=== PATIENT | female | born 1975 | race Caucasian/White ===

== ENCOUNTER 2017-09-27 22:02 | Emergency (ER) | payer OTHER ==
[~2017-09-27] VITALS: Ht 170.2 cm; Wt 99.8 kg
[2017-09-27] MEDS ORDERED: PHENERGAN IV STA (22:18)
[2017-09-27] MEDS ORDERED: NS 1000ML 1,000 ML IV STA (22:18)
--- NOTE | 2017-09-27 22:21 | PCM.EKG ---
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
[2017-09-27] MEDS ORDERED: NS 1000ML 1,000 ML ONE (22:22)
[2017-09-27] MEDS ORDERED: PHENERGAN ONE (22:23)
--- NOTE | 2017-09-27 22:24 | ER.PDOC ---
General Chief Complaint: Syncope Stated Complaint: NEAR SYNCOPE Time seen by MD: 22:23 Source: patient Exam Limitations: no limitations History of Present Illness Initial Comments Passed out after a bout of vomiting and diarrhea Timing/Prior Episodes: single episode today Symptoms Prior to Episode: none Precipitating Factors: standing Loss of Consciousness: Brief (Seconds) Location of Injury: None Current Symptoms: lightheadedness Allergies: Coded Allergies: Penicillins (Verified Allergy, Unknown, Hives, 05/05/17) acetaminophen (Verified Allergy, Unknown, 05/05/17) ketorolac (Verified Allergy, Unknown, Swelling, 05/05/17) naproxen (Verified Allergy, Unknown, 05/05/17) pamabrom (Verified Allergy, Unknown, 05/05/17) sulfamethoxazole (Verified Allergy, Unknown, Hives, 05/05/17) tramadol (Verified Allergy, Unknown, Hives, 05/05/17) trimethoprim (Verified Allergy, Unknown, Hives, 05/05/17) Past Medical History Surgical History: back, cholecystectomy, tubal LMP (females 10-50): tubal Social History Smoking: cigarettes, less than 1 pack/day Alcohol Use: none Drug Use: marijuana Review of Systems Constitutional: no symptoms reported Respiratory: no symptoms reported Cardiovascular: no symptoms reported Gastrointestinal: see HPI Psychiatric/Neurological: see HPI All Other Systems: Reviewed and Negative Physical Exam General Appearance: No Apparent Distress, WD/WN HEENT: PERRL/EOMI Neck: Non-Tender, Full Range of Motion, Supple, Normal Inspection Cardiovascular/Respiratory: Regular Rate, Rhythm, No M/R/G, Normal Peripheral Pulses, No JVD, Normal Breath Sounds, No Respiratory Distress Gastrointestinal: Normal Bowel Sounds, No Organomegaly, No Pulsatile Mass, Non Tender, Soft Extremities: Normal Range of Motion, Non-Tender, Normal Inspection, No Pedal Edema, No Calf Tenderness, Normal Capillary Refill Psychiatric: Alert, Oriented x 3 Cranial Nerves: Normal Hearing, Normal Speech, PERRL Motor/Sensory: No Motor Deficit, No Sensory Deficit Skin: Normal Color, Warm/Dry Lymphatic: No Adenopathy Results/Orders Results/Orders Laboratory Tests Test 09/27/17 22:26 White Blood Count 7.8 10^3/uL (4.5-11.0) Red Blood Count 4.70 10^6/uL (4.00-5.20) Hemoglobin 13.2 g/dL (12.0-15.0) Hematocrit 41.1 % (36.0-46.0) Mean Corpuscular Volume 87.4 fL (78-100) Mean Corpuscular Hemoglobin 28.1 pg (26-34) Mean Corpuscular Hemoglobin Concent 32.1 g/dL (33-37) Red Cell Distribution Width 14.6 % (11.5-14.5) Platelet Count 325 10^3/uL (150-400) Mean Platelet Volume 10.8 fL (7.8-11.0) Neutrophils (%) (Auto) 50.0 % (41.0-85.0) Lymphocytes (%) (Auto) 39.5 % (24.0-44.0) Monocytes (%) (Auto) 7.8 % (5.0-12.0) Neutrophils # (Auto) 3.9 10^3/uL (1.8-7.7) Lymphocytes # (Auto) 3.1 10^3/uL (1.0-4.8) Monocytes # (Auto) 0.6 10^3/uL (0.3-0.8) Absolute Immature Granulocyte (auto 0.02 10^3 u/L (0-2) Eosinophils % 1.8 % (0.0-5.0) Basophils % 0.6 % (0.0-0.2) Basophils # 0.1 10^3/uL (0.0-0.1) Eosinophil Count 0.1 10^3/uL (0.0-0.2) Sodium Level 142 mmol/L (132-145) Potassium Level 3.3 mmol/L (3.6-5.2) Chloride Level 107.0 mmol/L (96-109) Carbon Dioxide Level 21.9 mmol/L (20.0-32) Anion Gap 16.4 Blood Urea Nitrogen 16 mg/dL (7-18) Creatinine 0.86 mg/dL (0.59-1.40) Estimated GFR () 88.4 (>/=60) BUN/Creatinine Ratio 18.0 Glucose Level 92 mg/dL (70-110) Calcium Level 8.6 mg/dL (8.4-10.5) Total Bilirubin 0.4 mg/dL (0.2-1.0) Aspartate Amino Transf (AST/SGOT) 14 U/L (0-35) Alanine Aminotransferase (ALT/SGPT) 12 U/L (12-78) Alkaline Phosphatase 55 U/L (50-136) Troponin I < 0.02 ng/mL (0.00-0.05) Total Protein 7.4 g/dL (6.4-8.2) Albumin 3.6 g/dL (3.4-5.0) Globulin 3.8 Lipase 108 U/L (114-286) Serum HCG, Qualitative NEGATIVE (NEGATIVE) Percent Immature Gran (Cell Imm) 0.30 % (0.00-0.50) Administered Medications Medications (Trade) Dose Ordered Sig/Bo Route PRN Reason Start Time Stop Time Status Last Admin Dose Admin Sodium Chloride 1,000 ml @ 1,200 mls/hr Q50M STAT IV 09/27/17 22:18 09/27/17 23:07 DC 09/27/17 23:05 Promethazine HCl (Phenergan) 25 mg STAT STAT IV 09/27/17 22:18 09/27/17 22:20 DC 09/27/17 23:05 Progress Progress Patient feels fine to go home. EKG/XRAY/CT/US EKG: NSR CT Comments: Normal CT head Departure Time of Disposition: 23:48 Disposition: 01 HOME, SELF-CARE Impression: Primary Impression: Syncope and collapse Additional Impression: Gastroenteritis Condition: Improved Referrals: TERA BERGER MD (PCP) PRIMARY CARE PROVIDER Additional Instructions: Start feeding with clear liquids and advance diet as tolerated F/U with your PCP in 2-3 days Duration or Time Spent with Pa: 2 hours Problem Qualifiers TREVA BONILLA MD Sep 27, 2017 22:24
[2017-09-27 22:33] LABS: BASOPHIL # 0.1 10^3/uL (0.0-0.1); BASOPHIL % 0.6 % (0.0-0.2); EOSINOPHIL # 0.1 10^3/uL (0.0-0.2); EOSINOPHIL % 1.8 % (0.0-5.0); HEMOGLOBIN 13.2 g/dL (12.0-15.0); LYMPHOCYTES # 3.1 10^3/uL (1.0-4.8); LYMPHOCYTES % 39.5 % (24.0-44.0); MEAN CELL HGB 28.1 pg (26-34); MEAN CELL HGB CONCENTRATION 32.1 g/dL (33-37); MEAN CORP VOLUME 87.4 fL (78-100); MEAN PLATELET VOLUME 10.8 fL (7.8-11.0); MONOCYTES # 0.6 10^3/uL (0.3-0.8); MONOCYTES % 7.8 % (5.0-12.0); NEUTROPHIL # 3.9 10^3/uL (1.8-7.7); RED CELL DISTRIBUTION WIDTH 14.6 % (11.5-14.5); WHITE BLOOD CELL 7.8 10^3/uL (4.5-11.0)
[2017-09-27 22:51] LABS: ALANINE AMINOTRANSFERASE(ML) 12 U/L (12-78); ALKALINE PHOSPHATASE 55 U/L (50-136); ASPARTATE AMINO TRANSFERASE 14 U/L (0-35); CALCIUM 8.6 mg/dL (8.4-10.5); CARBON DIOXIDE 21.9 mmol/L (20.0-32); GLUCOSE 92 mg/dL (70-110)
[2017-09-27 23:10] VITALS: BP 136/86
--- NOTE | 2017-09-27 23:42 | DIREP ---
PROCEDURE:CT HEAD OR BRAIN W/O CONTRAST COMPARISON:None. INDICATIONS:Syncope TECHNIQUE:CT images were created without intravenous contrast. FINDINGS: VENTRICLES:The ventricles are normal in size and configuration. CEREBRUM:Normal cerebral morphology with appropriate dumont white matter differentiation. CEREBELLUM:Negative. BRAINSTEM:Negative. BASAL CISTERNS:Negative. HEMORRHAGE:No MASS LESION:No ACUTE INFARCT:No SKULL:Normal. SINUSES:Normal. OTHER:None CONCLUSION:Normal examination. Dictated by: Ayush Champagne M.D. on 09/27/2017 at 11:41 PM
--- NOTE | 2017-09-27 23:54 | NUR ---
IV IV Removed, No redness or swelling around IV Site
[2017-09-27 23:56] VITALS: BP 136/86
== END 2017-09-27 23:55 | disposition home or self-care (01) ==
LOC: EDBD 22:02 → ER 22:02
DX: K52.9 Noninfective gastroenteritis and colitis, unspecified (principal); R55 Syncope and collapse; Z88.0 Allergy status to penicillin; Z88.2 Allergy status to sulfonamides; Z90.49 Acquired absence of other specified parts of digestive tract
CPT/HCPCS: 36415; 70450; 80053; 83690; 84484; 84703; 85025; 93005; 96361; 96374; 99285; J2550; J7030

== ENCOUNTER 2018-02-18 13:06 | Emergency (ER) | payer OTHER ==
[~2018-02-18] VITALS: Ht 170.2 cm; Wt 96.6 kg
[2018-02-18 13:28] VITALS: BP 140/100
--- NOTE | 2018-02-18 13:29 | NUR ---
ARRIVAL PATIENT ARRIVED TO ED[facility] AMBULATORY, C/O OF BACK AND LEG PAIN FROM A FALL 3-4 DAYS AGO, PAIN INCREASED OVER THE LAST FEW DAYS, DOES HAVE A HISTORY OF CHRONIC BACK PAIN, HERE FOR FURTHER EVAL.
[2018-02-18] MEDS ORDERED: SUBLIMAZE IM STA (13:34)
[2018-02-18] MEDS ORDERED: ZOFRAN ODT SL STA (13:34)
--- NOTE | 2018-02-18 13:42 | ER.PDOC ---
General Chief Complaint: Lower Back Pain or Injury Stated Complaint: FALL,BACK/LEFT ANKLE INJURY,ASTHMATIC Time seen by MD: 13:45 Source: patient Exam Limitations: no limitations History of Present Illness Occurred: last week Where: home Severity: mild Injuries/Pain Location: back, lower extremity Context: Lost Balance Loss of Consciousness: No Loss of Consciousness Modifying Factors: improves with cold therapy, improves with immobilization, improves with pain medication Associated Symptoms: denies symptoms Allergies: Coded Allergies: Penicillins (Verified Allergy, Unknown, Hives, 05/05/17) acetaminophen (Verified Allergy, Unknown, 05/05/17) ketorolac (Verified Allergy, Unknown, Swelling, 05/05/17) naproxen (Verified Allergy, Unknown, 05/05/17) pamabrom (Verified Allergy, Unknown, 05/05/17) sulfamethoxazole (Verified Allergy, Unknown, Hives, 05/05/17) tramadol (Verified Allergy, Unknown, Hives, 05/05/17) trimethoprim (Verified Allergy, Unknown, Hives, 05/05/17) Past Medical History Medical History: no pertinent history, other Surgical History: other Family History Significant Family History: no pertinent family hx Social History Smoking: non-smoker, cigarettes Alcohol Use: none Drug Use: none, marijuana Reviewed Nursing Reviewed: Vital Signs, Abn. Noted Review of Systems All Other Systems: Reviewed and Negative Physical Exam General Appearance: No Apparent Distress, WD/WN Head: No Evidence of Injury Eyes: bilateral eye normal inspection Ears, Nose, Mouth, Throat: Hearing Grossly Normal, No Evidence of ENT Injury, No Dental Injury Neck: Non-Tender, Normal Alignment, Nexus criteria neg, Normal Inspection Cardiovascular/Respiratory: Regular Rate, Rhythm, No M/R/G, Normal Peripheral Pulses, No JVD, Normal Breath Sounds, No Respiratory Distress Gastrointestinal: Normal Bowel Sounds, No Organomegaly, No Pulsatile Mass, Non Tender, Soft Back: Vertebral Tenderness Extremities: Tenderness (L ANKLE) 1 - TENDER 1 - TENDER 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
--- NOTE | 2018-02-18 13:54 | NUR ---
XRAY PATIENT AMBULATORY TO XRAY WITH KAELA FROM RADIOLOGY.
--- NOTE | 2018-02-18 14:02 | NUR ---
XRAY PATIENT BACK FROM XRAY.
[2018-02-18 14:10] VITALS: BP 151/78
--- NOTE | 2018-02-18 14:10 | DIREP ---
PROCEDURE:XRAY ANKLE MIN 3VWS-LT COMPARISON:None. INDICATIONS:FALL FINDINGS: BONES:No acute fracture is seen. Internal fixation screws are noted within the calcaneus and lateral aspect of the talus. JOINTS:The ankle mortise is intact. Mild osteophyte formation is noted at the tip of the lateral malleolus. SOFT TISSUES:Normal. OTHER:No additional findings. CONCLUSION: 1. No acute fracture is demonstrated. The ankle mortise is intact. Dictated by: Paco Camacho M.D. on 02/18/2018 at 02:07 PM
--- NOTE | 2018-02-18 14:12 | DIREP ---
PROCEDURE:XRAY SPINE LUMBAR 2-3 VWS COMPARISON:[facility], , XRAY SPINE LUMBAR 2-3 VWS, 08/27/2017, 06:42 PM. INDICATIONS:FALL FINDINGS: ALIGNMENT:Normal. VERTEBRAE:Normal. DISK SPACES:Fairly severe degenerative disc disease is again noted at the L5/S1 level appears unchanged since 08/27/2017 characterized by narrowing of the disc space height and anterior osteophyte formation. SPONDYLOLISTHESIS:None. SACROILIAC JOINTS:Normal. OTHER:Normal. CONCLUSION: 1. No fracture or spondylolisthesis is seen. 2. Fairly severe degenerative disc disease at L5/S1 appears unchanged since 08/27/2017. Dictated by: Paco Camacho M.D. on 02/18/2018 at 02:09 PM
[2018-02-18 14:24] VITALS: BP 140/100
== END 2018-02-18 14:16 | disposition home or self-care (01) ==
LOC: ER 13:06
DX: M54.5 Low back pain (principal); M25.572 Pain in left ankle and joints of left foot; F12.10 Cannabis abuse, uncomplicated; F17.210 Nicotine dependence, cigarettes, uncomplicated; Z88.0 Allergy status to penicillin; Z88.6 Allergy status to analgesic agent; Z88.2 Allergy status to sulfonamides; Z88.1 Allergy status to other antibiotic agents
CPT/HCPCS: 72100; 99284; 73610-LT

== ENCOUNTER 2018-03-29 17:25 | Emergency (ER) | payer OTHER ==
[~2018-03-29] VITALS: Ht 172.7 cm; Wt 90.7 kg
[2018-03-29 18:05] VITALS: BP 132/85
[2018-03-29 18:51] LABS: BASOPHIL % 0.2 % (0.0-0.2); EOSINOPHIL # 0.1 10^3/uL (0.0-0.2); EOSINOPHIL % 1.1 % (0.0-5.0); LYMPHOCYTES # 3.2 10^3/uL (1.0-4.8); LYMPHOCYTES % 33.2 % (24.0-44.0); MEAN CELL HGB 29.3 pg (26-34); MEAN CELL HGB CONCENTRATION 33.3 g/dL (33-37); MEAN CORP VOLUME 88.1 fL (78-100); MEAN PLATELET VOLUME 10.4 fL (7.8-11.0); MONOCYTES # 0.8 10^3/uL (0.3-0.8); MONOCYTES % 7.9 % (5.0-12.0); NEUTROPHIL # 5.5 10^3/uL (1.8-7.7); NEUTROPHILS % 57.4 % (41.0-85.0); RED CELL DISTRIBUTION WIDTH 14.3 % (11.5-14.5); WHITE BLOOD CELL 9.6 10^3/uL (4.5-11.0)
--- NOTE | 2018-03-29 18:57 | ER.PDOC ---
General Chief Complaint: Abdomen Pain Stated Complaint: ABD PAIN Time seen by MD: 18:20 Source: patient Exam Limitations: no limitations History of Present Illness Initial Comments Pt with h/o dysmenorrhea, started today with abdominal pain on lower abdomen, yesterday with her period. Feels frequency, no dysuria and suprapubic abdominal pain Timing/Duration: 24 hours Severity/Quality: severe, cramping Radiation: LLQ, periumbilical, flank (left) Exacerbated by: movements Relieved By: supine Allergies: Coded Allergies: Penicillins (Verified Allergy, Unknown, Hives, 05/05/17) amoxicillin (Verified Allergy, Unknown, Anaphylaxis Shock, 03/17/18) ketorolac (Verified Allergy, Unknown, Swelling, 05/05/17) naproxen (Verified Allergy, Unknown, 05/05/17) pamabrom (Verified Allergy, Unknown, 05/05/17) sulfamethoxazole (Verified Allergy, Unknown, Hives, 05/05/17) tramadol (Verified Allergy, Unknown, Hives, 05/05/17) trimethoprim (Verified Allergy, Unknown, Hives, 05/05/17) Vital Signs First Vital Signs Date Time Temp Pulse Resp B/P (MAP) Pulse Ox O2 Delivery O2 Flow Rate FiO2 03/18/18 20:42 87 03/29/18 17:57 97.8 16 98 97.8 03/29/18 18:05 132/85 (101) Last Vital Signs Date Time Temp Pulse Resp B/P (MAP) Pulse Ox O2 Delivery O2 Flow Rate FiO2 03/29/18 18:05 98.1 59 18 132/85 (101) 98 98.1 Past Medical History Medical History: asthma Surgical History: back Social History Smoking: greater than 1 pack/day Alcohol Use: occassionally Drug Use: marijuana Constitutional: no symptoms reported EENTM: no symptoms reported Respiratory: no symptoms reported Cardiovascular: no symptoms reported Gastrointestinal: see HPI Genitourinary: see HPI Musculoskeletal: no symptoms reported Skin: no symptoms reported Psychiatric/Neurological: no symptoms reported Endocrine: no symptoms reported Hematologic/Lymphatic: no symptoms reported Physical Exam General Appearance: No Apparent Distress, WD/WN HEENT: PERRL/EOMI, Normal ENT Inspection, TMs Normal, Pharynx Normal Neck: Non-Tender, Full Range of Motion, Supple, Normal Inspection Respiratory: chest non-tender, lungs clear, normal breath sounds, no respiratory distress, no accessory muscle use Cardiovascular: Normal Peripheral Pulses, Regular Rate, Rhythm, No Edema, No Gallop, No JVD, No Murmur Gastrointestinal: Normal Bowel Sounds, No Organomegaly, No Pulsatile Mass, Tenderness (LLQ, RLQ, suprapubic area) Back: Normal Inspection, CVA Tenderness (R), CVA Tenderness (L) Extremities: Normal Range of Motion, Non-Tender, Normal Inspection, No Pedal Edema, No Calf Tenderness, Normal Capillary Refill, Pelvis Stable Neurologic/Psychiatric: 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 Tested, No Motor/Sensory Deficits, Alert, Normal Mood/Affect, Oriented x 3 Skin: Normal Color, Warm/Dry Lymphatic: No Adenopathy Results/Orders Results/Orders Laboratory Tests Test 03/29/18 18:47 White Blood Count 9.6 10^3/uL (4.5-11.0) Red Blood Count 4.78 10^6/uL (4.00-5.20) Hemoglobin 14.0 g/dL (12.0-15.0) Hematocrit 42.1 % (36.0-46.0) Mean Corpuscular Volume 88.1 fL (78-100) Mean Corpuscular Hemoglobin 29.3 pg (26-34) Mean Corpuscular Hemoglobin Concent 33.3 g/dL (33-37) Red Cell Distribution Width 14.3 % (11.5-14.5) Platelet Count 372 10^3/uL (150-400) Mean Platelet Volume 10.4 fL (7.8-11.0) Neutrophils (%) (Auto) 57.4 % (41.0-85.0) Lymphocytes (%) (Auto) 33.2 % (24.0-44.0) Monocytes (%) (Auto) 7.9 % (5.0-12.0) Neutrophils # (Auto) 5.5 10^3/uL (1.8-7.7) Lymphocytes # (Auto) 3.2 10^3/uL (1.0-4.8) Monocytes # (Auto) 0.8 10^3/uL (0.3-0.8) Absolute Immature Granulocyte (auto 0.02 10^3 u/L (0-2) Eosinophils % 1.1 % (0.0-5.0) Basophils % 0.2 % (0.0-0.2) Basophils # 0.0 10^3/uL (0.0-0.1) Eosinophil Count 0.1 10^3/uL (0.0-0.2) Percent Immature Gran (Cell Imm) 0.20 % (0.00-0.50) Progress Progress Care of patient taken over from Dr. Cruz. CT abdomen/pelvis: Cholecystectomy. Broad-based disc herniation at L5-S1 with moderate deformity of the thecal sac and moderate bilateral foraminal stenosis. CT scan of the abdomen and pelvis is otherwise normal. The appendix is not visualized. Course Sepsis Screening Results: Posi: POSITIVE SEPSIS RISK Vitals & review Data Vital Sign - Last 24 Hours 03/29/18 03/29/18 03/29/18 17:57 17:57 18:05 Temp 97.8 98.1 98.1 97.8 98.1 98.1 Pulse 82 59 59 Resp 16 18 18 B/P (MAP) 132/85 (101) Pulse Ox 98 98 Laboratory Tests Test 03/29/18 18:47 White Blood Count 9.6 10^3/uL Red Blood Count 4.78 10^6/uL Hemoglobin 14.0 g/dL Hematocrit 42.1 % Mean Corpuscular Volume 88.1 fL Mean Corpuscular Hemoglobin 29.3 pg Mean Corpuscular Hemoglobin Concent 33.3 g/dL Red Cell Distribution Width 14.3 % Platelet Count 372 10^3/uL Mean Platelet Volume 10.4 fL Neutrophils (%) (Auto) 57.4 % Lymphocytes (%) (Auto) 33.2 % Monocytes (%) (Auto) 7.9 % Neutrophils # (Auto) 5.5 10^3/uL Lymphocytes # (Auto) 3.2 10^3/uL Monocytes # (Auto) 0.8 10^3/uL Absolute Immature Granulocyte (auto 0.02 10^3 u/L Eosinophils % 1.1 % Basophils % 0.2 % Basophils # 0.0 10^3/uL Eosinophil Count 0.1 10^3/uL Percent Immature Gran (Cell Imm) 0.20 % Departure Time of Disposition: 22:13 Disposition: 01 HOME, SELF-CARE Impression: Primary Impression: Nonspecific abdominal pain Condition: Stable Referrals: PCP,UNKNOWN (PCP) PRIMARY CARE PROVIDER Additional Instructions: Tylenol #3 Phenergan F/U with your PCP next week Duration or Time Spent with Pa: 2 hours MONA CRUZ MD Mar 29, 2018 18:56 TREVA BONILLA MD Mar 29, 2018 22:14
[2018-03-29 19:00] VITALS: BP 127/79
[2018-03-29 19:14] LABS: BILIRUBIN,URINE NEGATIVE (NEGATIVE); CARBON DIOXIDE 25.3 mmol/L (20.0-32); UA COLOR YELLOW (YELLOW); UROBILINOGEN,URINE NORMAL (NEGATIVE)
[2018-03-29 19:15] LABS: APPEARANCE,URINE SLIGHTLY CLOUDY (CLEAR)
[2018-03-29 20:00] VITALS: BP 120/83
--- NOTE | 2018-03-29 20:40 | NUR ---
DR BONILLA IN PATIENT ROOM TO DISCUSS POSSIBLE KIDNEY STONE AND CT SCAN
[2018-03-29] MEDS ORDERED: NS 1000ML 1,000 ML ONE (20:45)
[2018-03-29] MEDS ORDERED: ZOFRAN ONE (20:46)
[2018-03-29] MEDS ORDERED: STADOL ONE (20:46)
[2018-03-29] MEDS ORDERED: STADOL IV STA (20:47)
[2018-03-29] MEDS ORDERED: NS 1000ML 1,000 ML IV STA (20:47)
[2018-03-29] MEDS ORDERED: ZOFRAN IV STA (20:47)
[2018-03-29 21:00] VITALS: BP 118/76
--- NOTE | 2018-03-29 21:56 | DIREP ---
PROCEDURE:CT ABDOMEN/PELVIS W/ CONTRAST COMPARISON:None. INDICATIONS:Lower abdominal pain TECHNIQUE:Axial images were created through the abdomen and pelvis with non-ionic intravenous contrast material. No oral contrast was administered. Sagittal and coronal reconstructions were performed from source images. FINDINGS: LUNG BASES:Normal. No visible pulmonary or pleural disease. LIVER:Normal. No significant liver lesions are identified. BILIARY:Cholecystectomy. PANCREAS:Normal. No lesion, fluid collection, ductal dilatation, or atrophy. SPLEEN:Normal. No enlargement or focal lesion. ADRENALS:Normal. No mass or enlargement. URINARY TRACT:Normal. No focal lesions or hydronephrosis. AORTA/VASCULAR:Normal. No aneurysm. RETROPERITONEUM:Normal. No mass or adenopathy. BOWEL/MESENTERY:Normal. There is no intestinal obstruction, free fluid, free air or mesenteric inflammatory changes. The appendix is not visualized. ABDOMINAL WALL:Normal. No mass or hernia. PELVIC ORGANS:Normal. No visible mass. Pelvic organs appropriate for patient age. BONES:Broad-based disc herniation at L5-S1. Mild degenerative changes in the thoracolumbar spine. OTHER:Negative. CONCLUSION: 1. Cholecystectomy. Broad-based disc herniation at L5-S1 with moderate deformity of the thecal sac and moderate bilateral foraminal stenosis. CT scan of the abdomen and pelvis is otherwise normal. The appendix is not visualized. Dictated by: Donte Dunaway M.D. on 03/29/2018 at 09:49 PM
[2018-03-29 22:20] VITALS: BP 114/62
[2018-03-29 23:13] VITALS: BP 127/79
== END 2018-03-29 22:25 | disposition home or self-care (01) ==
LOC: ER 17:25
DX: R10.30 Lower abdominal pain, unspecified (principal); J45.909 Unspecified asthma, uncomplicated; F17.210 Nicotine dependence, cigarettes, uncomplicated; F12.10 Cannabis abuse, uncomplicated; R79.1 Abnormal coagulation profile; Z88.0 Allergy status to penicillin; Z88.2 Allergy status to sulfonamides; Z88.6 Allergy status to analgesic agent
CPT/HCPCS: 36415; 74177; 80053; 81000; 81025; 82150; 83690; 85025; 85610; 85730; 87086; 96374; 96375; 99285; J2405; J7030; Q9965; J0585

== ENCOUNTER → 2018-04-08 | Outpatient (CLI) | payer OTHER ==
[2018-04-08 16:39] LABS: HEMOGLOBIN 12.9 g/dL (12.0-15.0); MEAN CELL HGB 29.7 pg (26-34); MEAN CELL HGB CONCENTRATION 32.7 g/dL (33-37); MEAN CORP VOLUME 90.8 fL (78-100); MEAN PLATELET VOLUME 10.1 fL (7.8-11.0); RED CELL DISTRIBUTION WIDTH 15.1 % (11.5-14.5); WHITE BLOOD CELL 11.8 10^3/uL (4.5-11.0)
== END | disposition home or self-care (01) ==
LOC: LAB 16:20
PROVIDERS: ATTEND Obstetrics & Gynecology
DX: N94.6 Dysmenorrhea, unspecified (principal); N95.9 Unspecified menopausal and perimenopausal disorder; J45.909 Unspecified asthma, uncomplicated; Z90.49 Acquired absence of other specified parts of digestive tract; Z87.891 Personal history of nicotine dependence
CPT/HCPCS: 36415; 83001; 84439; 84443; 85027

== ENCOUNTER 2018-05-27 09:45 | Emergency (ER) | payer MEDICAID, OTHER ==
[~2018-05-27] VITALS: Ht 170.2 cm; Wt 93.4 kg
[2018-05-27 10:02] VITALS: BP 141/87
--- NOTE | 2018-05-27 10:02 | NUR ---
ARRIVAL PATIENT ARRIVED TO ED[facility] AMBULATORY WITH FAMILY, C/O OF VOMITING FOR THE PAST SEVERAL DAYS, DOES HAVE A HISTORY OF GASTROPERESIS, CAME TO THE ED FOR FURTHER EVAL.
[2018-05-27] MEDS ORDERED: PHENERGAN IM STA (10:12)
[2018-05-27] MEDS ORDERED: MORPHINE SULFATE IV STA (10:12)
[2018-05-27] MEDS ORDERED: PHENERGAN ONE (10:14)
[2018-05-27] MEDS ORDERED: MORPHINE SULFATE ONE (10:14)
--- NOTE | 2018-05-27 10:19 | ER.PDOC ---
General Chief Complaint: Nausea,Vomiting,Diarrhea Stated Complaint: VOMITING, GASTRO PRE Time seen by MD: 10:17 Source: patient Exam Limitations: no limitations History of Present Illness Initial Comments Nausea/vomiting for 2 days, her gastroparesis is acting up. Severity/Quality: moderate Abdominal Pain Onset Location: Generalized Abdomen Associated Symptoms (vomiting): mild vomiting Prior symptoms/Treatment: Similar symptoms previous Allergies: Coded Allergies: Penicillins (Verified Allergy, Unknown, Hives, 05/05/17) amoxicillin (Verified Allergy, Unknown, Anaphylaxis Shock, 03/17/18) ketorolac (Verified Allergy, Unknown, Swelling, 05/05/17) naproxen (Verified Allergy, Unknown, 05/05/17) pamabrom (Verified Allergy, Unknown, 05/05/17) sulfamethoxazole (Verified Allergy, Unknown, Hives, 05/05/17) tramadol (Verified Allergy, Unknown, Hives, 05/05/17) trimethoprim (Verified Allergy, Unknown, Hives, 05/05/17) Vital Signs First Vital Signs Date Time Temp Pulse Resp B/P (MAP) Pulse Ox O2 Delivery O2 Flow Rate FiO2 05/27/18 09:59 97.7 76 18 97.7 05/27/18 10:00 97 Room Air 05/27/18 10:02 141/87 (105) Last Vital Signs Date Time Temp Pulse Resp B/P (MAP) Pulse Ox O2 Delivery O2 Flow Rate FiO2 05/27/18 10:02 97.7 76 18 141/87 (105) 97 Room Air 97.7 Past Medical History Medical History: other (Gastroparesis) Surgical History: back, other Social History Smoking: cigarettes Alcohol Use: none Drug Use: none Constitutional: no symptoms reported EENTM: no symptoms reported Respiratory: no symptoms reported Cardiovascular: no symptoms reported Gastrointestinal: see HPI Genitourinary: no symptoms reported All Other Systems: Reviewed and Negative Physical Exam General Appearance: No Apparent Distress, WD/WN HEENT: PERRL/EOMI, Normal ENT Inspection, TMs Normal, Pharynx Normal Neck: Non-Tender, Full Range of Motion, Supple, Normal Inspection Respiratory: chest non-tender, lungs clear, normal breath sounds, no respiratory distress, no accessory muscle use Cardiovascular: Normal Peripheral Pulses, Regular Rate, Rhythm, No Edema, No Gallop, No JVD, No Murmur Gastrointestinal: Normal Bowel Sounds, Non Tender, Soft Back: Normal Inspection, No CVA Tenderness, No Vertebral Tenderness Extremities: Normal Range of Motion, Non-Tender, Normal Inspection, No Pedal Edema, No Calf Tenderness, Normal Capillary Refill, Pelvis Stable 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 Tested, No Motor/Sensory Deficits, Alert, Normal Mood/Affect, Oriented x 3 Skin: Normal Color, Warm/Dry Lymphatic: No Adenopathy Results/Orders Results/Orders Laboratory Tests Test 05/27/18 10:12 05/27/18 10:22 Urine Collection Type UNKNOWN Urine Color ADIS (YELLOW) Urine Appearance SLIGHTLY HAZY (CLEAR) Urine Bilirubin NEGATIVE MG/DL (NEGATIVE) Urine Ketones NEGATIVE (NEGATIVE) Urine Specific [place] 1.030 (1.005-1.035) Urine pH 5 (5.0-6.0) Urine Protein NEGATIVE (NEGATIVE) Urine Urobilinogen NORMAL (NEGATIVE) Urine Nitrate NEGATIVE (NEGATIVE) Urine Leukocyte Esterase NEGATIVE (NEGATIVE) Urine Blood 250 4+ (NEGATIVE) Urine RBC 10-25 RBC/HPF (NONE SEEN) Urine WBC 0-2 WBC/HPF (0-2) Urine Squamous Epithelial Cells FEW #/HPF (FEW) Urine Bacteria NONE SEEN (NONE SEEN) Urine Glucose NORMAL (NEGATIVE) Urine HCG, Qualitative NEGATIVE (NEGATIVE) White Blood Count 8.5 10^3/uL (4.5-11.0) Red Blood Count 4.79 10^6/uL (4.00-5.20) Hemoglobin 13.9 g/dL (12.0-15.0) Hematocrit 42.7 % (36.0-46.0) Mean Corpuscular Volume 89.1 fL (78-100) Mean Corpuscular Hemoglobin 29.0 pg (26-34) Mean Corpuscular Hemoglobin Concent 32.6 g/dL (33-37) Red Cell Distribution Width 15.0 % (11.5-14.5) Platelet Count 335 10^3/uL (150-400) Mean Platelet Volume 10.3 fL (7.8-11.0) Neutrophils (%) (Auto) 57.6 % (41.0-85.0) Lymphocytes (%) (Auto) 31.9 % (24.0-44.0) Monocytes (%) (Auto) 7.5 % (5.0-12.0) Neutrophils # (Auto) 4.9 10^3/uL (1.8-7.7) Lymphocytes # (Auto) 2.7 10^3/uL (1.0-4.8) Monocytes # (Auto) 0.6 10^3/uL (0.3-0.8) Absolute Immature Granulocyte (auto 0.02 10^3 u/L (0-2) Eosinophils % 2.3 % (0.0-5.0) Basophils % 0.5 % (0.0-0.2) Basophils # 0.0 10^3/uL (0.0-0.1) Eosinophil Count 0.2 10^3/uL (0.0-0.2) Sodium Level 142 mmol/L (132-145) Potassium Level 3.5 mmol/L (3.6-5.2) Chloride Level 106.0 mmol/L (96-109) Carbon Dioxide Level 26.2 mmol/L (20.0-32) Anion Gap 13.3 Blood Urea Nitrogen 18 mg/dL (7-18) Creatinine 0.77 mg/dL (0.59-1.40) Estimated GFR () 100.0 (>/=60) BUN/Creatinine Ratio 23.0 Glucose Level 97 mg/dL (70-110) Calcium Level 9.3 mg/dL (8.4-10.5) Total Bilirubin 0.3 mg/dL (0.2-1.0) Aspartate Amino Transf (AST/SGOT) 13 U/L (0-35) Alanine Aminotransferase (ALT/SGPT) 12 U/L (12-78) Alkaline Phosphatase 55 U/L (50-136) Total Protein 7.1 g/dL (6.4-8.2) Albumin 3.5 g/dL (3.4-5.0) Globulin 3.6 Lipase 105 U/L (114-286) Percent Immature Gran (Cell Imm) 0.20 % (0.00-0.50) Administered Medications Medications (Trade) Dose Ordered Sig/Bo Route PRN Reason Start Time Stop Time Status Last Admin Dose Admin Promethazine HCl (Phenergan) 25 mg STAT STAT IM 05/27/18 10:12 05/27/18 10:16 DC 05/27/18 10:21 Morphine Sulfate (Morphine Sulfate) 4 mg STAT STAT IM 05/27/18 10:22 05/27/18 10:23 DC 05/27/18 10:23 EKG/XRAY/CT/US XRAY: abdomen (No acute intra-abdominal process) Departure Time of Disposition: 11:38 Disposition: 01 HOME, SELF-CARE Impression: Primary Impression: Gastroparesis Additional Impression: Nausea & vomiting Qualified Codes: R11.2 - Nausea with vomiting, unspecified Condition: Improved Referrals: PCP,UNKNOWN (PCP) PRIMARY CARE PROVIDER Additional Instructions: Phenergan Tylenol #3 Start feeding with clear liquids and advance diet as tolerated F/U with your PCP in 2-3 days Duration or Time Spent with Pa: 60 mins TREVA BONILLA MD May 27, 2018 10:19
[2018-05-27] MEDS ORDERED: MORPHINE SULFATE IM STA (10:22)
[2018-05-27 10:28] LABS: BASOPHIL % 0.5 % (0.0-0.2); EOSINOPHIL # 0.2 10^3/uL (0.0-0.2); EOSINOPHIL % 2.3 % (0.0-5.0); HEMOGLOBIN 13.9 g/dL (12.0-15.0); LYMPHOCYTES # 2.7 10^3/uL (1.0-4.8); LYMPHOCYTES % 31.9 % (24.0-44.0); MEAN CELL HGB CONCENTRATION 32.6 g/dL (33-37); MEAN CORP VOLUME 89.1 fL (78-100); MEAN PLATELET VOLUME 10.3 fL (7.8-11.0); MONOCYTES # 0.6 10^3/uL (0.3-0.8); MONOCYTES % 7.5 % (5.0-12.0); NEUTROPHIL # 4.9 10^3/uL (1.8-7.7); NEUTROPHILS % 57.6 % (41.0-85.0); WHITE BLOOD CELL 8.5 10^3/uL (4.5-11.0)
[2018-05-27 10:34] LABS: BILIRUBIN,URINE NEGATIVE (NEGATIVE); UROBILINOGEN,URINE NORMAL (NEGATIVE)
[2018-05-27 10:42] LABS: APPEARANCE,URINE SLIGHTLY HAZY (CLEAR); UA COLOR AMBER (YELLOW)
[2018-05-27 10:47] LABS: CALCIUM 9.3 mg/dL (8.4-10.5); CARBON DIOXIDE 26.2 mmol/L (20.0-32)
--- NOTE | 2018-05-27 11:03 | DIREP ---
PROCEDURE:XR ABDOMEN 2 VIEWS COMPARISON:None. INDICATIONS:Pain and vomiting TECHNIQUE:Flat and upright views of the abdomen are provided. FINDINGS: BOWEL GAS PATTERN:Normal. CALCIFICATIONS:None significant. LUNG BASES:Clear. BONES:Normal. OTHER:Cholecystectomy CONCLUSION:Nonobstructive, nonspecific bowel gas pattern. No acute intra-abdominal process Dictated by: Maged Palomo M.D. on 05/27/2018 at 09:58 AM Read in [place]
[2018-05-27 12:07] VITALS: BP 145/81
[2018-05-27 12:08] VITALS: BP 145/81
== END 2018-05-27 12:10 | disposition home or self-care (01) ==
LOC: ER 09:45
DX: K31.84 Gastroparesis (principal); F17.210 Nicotine dependence, cigarettes, uncomplicated; Z98.890 Other specified postprocedural states; Z88.0 Allergy status to penicillin; Z88.6 Allergy status to analgesic agent; Z88.2 Allergy status to sulfonamides; Z88.1 Allergy status to other antibiotic agents; Z88.8 Allergy status to other drugs, medicaments and biological substances
CPT/HCPCS: 36415; 74019; 80053; 81000; 81025; 83690; 85025; 96372 ×2; 99285; J2270; J2550

== ENCOUNTER 2018-10-30 16:53 | Emergency (ER) | payer OTHER ==
[~2018-10-30] VITALS: Ht 170.2 cm; Wt 95.7 kg
[2018-10-30 17:17] VITALS: BP 156/80
[2018-10-30] MEDS ORDERED: KLONOPIN PO STA (17:22)
[2018-10-30] MEDS ORDERED: ASPIRIN PO STA (17:22)
--- NOTE | 2018-10-30 17:24 | PCM.EKG ---
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
[2018-10-30] MEDS ORDERED: ZOFRAN ODT SL STA (17:26)
[2018-10-30] MEDS ORDERED: ZOFRAN ODT ONE (17:28)
--- NOTE | 2018-10-30 17:29 | ER.PDOC ---
General Chief Complaint: Chest Pain-Cardiac Nature Stated Complaint: N/V,CHEST PAIN Time seen by MD: 17:26 Source: patient Exam Limitations: no limitations History of Present Illness Initial Comments Chest pain, anxious, dizzy, nausea, vomiting. Takes Klonopin 3mg each day. Took the morning dose. Severity/Quality: moderate, tightness Radiation: no radiation Activities at Onset: none Nitro Today/Relief: No Nitro Taken Today Aspirin Today: 325 mg x 1, Provided By ED Associated Symptoms: dizziness, shortness of breath Allergies: Coded Allergies: Penicillins (Verified Allergy, Unknown, Hives, 05/05/17) amoxicillin (Verified Allergy, Unknown, Anaphylaxis Shock, 03/17/18) ketorolac (Verified Allergy, Unknown, Swelling, 05/05/17) naproxen (Verified Allergy, Unknown, 05/05/17) pamabrom (Verified Allergy, Unknown, 05/05/17) sulfamethoxazole (Verified Allergy, Unknown, Hives, 05/05/17) tramadol (Verified Allergy, Unknown, Hives, 05/05/17) trimethoprim (Verified Allergy, Unknown, Hives, 05/05/17) Past Medical History Medical History: other (Anxiety) Surgical History: back, tubal, other LMP (females 10-50): last week Social History Smoking: greater than 1 pack/day Alcohol Use: occassionally Drug Use: marijuana Constitutional: no symptoms reported EENTM: no symptoms reported Respiratory: see HPI Cardiovascular: see HPI Gastrointestinal: see HPI All Other Systems: Reviewed and Negative Physical Exam General Appearance: No Apparent Distress, Anxious HEENT: PERRL/EOMI, Normal ENT Inspection, TMs Normal, Pharynx Normal Neck: Non-Tender, Full Range of Motion, Supple, Normal Inspection Respiratory: chest non-tender, lungs clear, normal breath sounds, no respiratory distress, no accessory muscle use Cardiovascular: Normal Peripheral Pulses, Regular Rate, Rhythm, No Edema, No Gallop, No JVD, No Murmur Gastrointestinal: Normal Bowel Sounds, No Organomegaly, No Pulsatile Mass, Non Tender, Soft Extremities: Normal Range of Motion, Non-Tender, Normal Inspection, No Pedal Edema, No Calf Tenderness, Normal Capillary Refill Neurologic/Psychiatric: 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-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 NML as Tested, No Motor/Sensory Deficits, Alert, Normal Mood/Affect, Oriented x 3 Skin: Normal Color, Warm/Dry Results/Orders Results/Orders Orders - TREVA BONILLA MD Cbc With Auto Diff (10/30/18 17:22) Comprehensive Metabolic Panel (10/30/18 17:22) Creatine Kinase (10/30/18 17:22) Troponin I (10/30/18 17:22) Probnp B-Type Right Of Way Appraiser (10/30/18 17:22) D-Dimer (10/30/18:22) Xr Chest 1v (10/30/18 17:22) Ekg-Routine (10/30/18 17:22) Aspirin (Aspirin) (10/30/18:22) Clonazepam (Klonopin) (10/30/18:22) Drug Screen Medical(Ml) (10/30/18:) Vital Signs Date Time Temp Pulse Resp B/P (MAP) Pulse Ox O2 Delivery O2 Flow Rate FiO2 10/30/18 17:17 98.6 104 19 156/80 (105) 97 Room Air 98.6 10/30/18 17:10 98.6 104 19 97 Room Air 98.6 10/30/18 17:10 98.6 104 19 98.6 Progress Progress Patient feels better with Klonopin. Heart rate dropped in the 70s. EKG/XRAY/CT/US EKG Comments: Sinus tachycardia XRAY: chest (No active disease) Course Sepsis Screening Results: Posi: POSITIVE SEPSIS RISK Duration or Total Time Spent w: 60 mins Vitals & review Data Vital Sign - Last 24 Hours 10/30/18 10/30/18 10/30/18 17:10 17:10 17:17 Temp 98.6 98.6 98.6 98.6 98.6 98.6 Pulse 104 104 104 Resp 19 19 19 B/P (MAP) 156/80 (105) Pulse Ox 97 97 O2 Delivery Room Air Room Air Sepsis Infection Criteria Pres: None O2 Sat by Pulse Oximetry: 97 Departure Time of Disposition: 18:38 Disposition: 01 HOME, SELF-CARE Impression: Primary Impression: Anxiety Additional Impression: Mild tetrahydrocannabinol (THC) abuse Condition: Improved Referrals: KEE FERNÁNDEZ MD (PCP) PRIMARY CARE PROVIDER Additional Instructions: Continue Klonopin at home F/U with PCP in 1-2 days Duration or Time Spent with Pa: 60 mins Problem Qualifiers IRENE,TREVA Dyer MD Oct 30, 2018 17:29
[2018-10-30 17:38] LABS: BASOPHIL % 0.3 % (0.0-0.2); EOSINOPHIL # 0.2 10^3/uL (0.0-0.2); EOSINOPHIL % 2.5 % (0.0-5.0); LYMPHOCYTES # 3.3 10^3/uL (1.0-4.8); LYMPHOCYTES % 35.4 % (24.0-44.0); MEAN CELL HGB 29.2 pg (26-34); MEAN CELL HGB CONCENTRATION 34.1 g/dL (33-37); MEAN CORP VOLUME 85.6 fL (78-100); MEAN PLATELET VOLUME 10.3 fL (7.8-11.0); MONOCYTES # 0.6 10^3/uL (0.3-0.8); MONOCYTES % 6.8 % (5.0-12.0); NEUTROPHIL # 5.1 10^3/uL (1.8-7.7); NEUTROPHILS % 54.9 % (41.0-85.0); RED CELL DISTRIBUTION WIDTH 15.1 % (11.5-14.5); WHITE BLOOD CELL 9.2 10^3/uL (4.5-11.0)
--- NOTE | 2018-10-30 17:54 | DIREP ---
PROCEDURE:CHEST 1 VIEW COMPARISON:None. INDICATIONS:Chest pain FINDINGS: LUNGS/PLEURA:No significant pulmonary parenchymal abnormalities. No effusions. The lungs are well-expanded and clear. No pneumonia, heart failure or effusions are seen. No pneumothorax, pneumomediastinum, aortic aneurysm or mediastinal widening is seen. VASCULATURE:Normal. Unremarkable pulmonary vasculature. CARDIAC:Normal. No cardiac silhouette abnormality or cardiomegaly. MEDIASTINUM:Normal. No visible mass or adenopathy. BONES:Normal. No fracture or visible bony lesion. OTHER:Negative. CONCLUSION:No active disease. Dictated by: Shivam Cedillo MD on 10/30/2018 at 05:52 PM
[2018-10-30] MEDS ORDERED: ASPIRIN ONE (17:56)
[2018-10-30] MEDS ORDERED: KLONOPIN ONE (17:57)
[2018-10-30 18:00] LABS: ALANINE AMINOTRANSFERASE(ML) 10 U/L (12-78); ALKALINE PHOSPHATASE 69 U/L (50-136); ASPARTATE AMINO TRANSFERASE 11 U/L (0-35); CALCIUM 8.9 mg/dL (8.4-10.5); CARBON DIOXIDE 23.2 mmol/L (20.0-32); GLUCOSE 94 mg/dL (70-110)
[2018-10-30 19:14] VITALS: BP 156/80
== END 2018-10-30 18:55 | disposition home or self-care (01) ==
LOC: ER 16:53
DX: F41.9 Anxiety disorder, unspecified (principal); F12.10 Cannabis abuse, uncomplicated; F17.210 Nicotine dependence, cigarettes, uncomplicated; Z88.0 Allergy status to penicillin; Z88.1 Allergy status to other antibiotic agents; Z88.2 Allergy status to sulfonamides; Z88.6 Allergy status to analgesic agent; Z88.8 Allergy status to other drugs, medicaments and biological substances
CPT/HCPCS: 36415; 71045; 80053; 80307 ×2; 82550; 83880; 84484; 85025; 85379; 93005; 99285; Q0162

== ENCOUNTER → 2018-11-12 | Outpatient (CLI) | payer OTHER ==
--- NOTE | 2018-11-12 16:17 | DIREP ---
PROCEDURE:XRAY HAND MIN 3 VW-LT COMPARISON:None. INDICATIONS:LEFT HAND PAIN FINDINGS: BONES:No visible fracture. Bones are intact. JOINTS:Normal. SOFT TISSUES:Normal. OTHER:No additional findings. CONCLUSION:No acute visible fracture. See above description. Dictated by: Carlos Arambula M.D. on 11/12/2018 at 04:16 PM
--- NOTE | 2018-11-12 16:18 | DIREP ---
PROCEDURE:XRAY HAND MIN 3 VW-RT COMPARISON:None. INDICATIONS:RIGHT HAND PAIN FINDINGS: BONES:No visible fracture. Bones are intact. JOINTS:Normal. SOFT TISSUES:Normal. OTHER:No additional findings. CONCLUSION:No acute visible fracture. See above description. Dictated by: Carlos Arambula M.D. on 11/12/2018 at 04:17 PM
== END | disposition home or self-care (01) ==
LOC: LAB 12:16
PROVIDERS: ATTEND Internal Medicine
DX: M79.641 Pain in right hand (principal); M79.642 Pain in left hand
CPT/HCPCS: 36415; 84550; 86431; 73130-LT; 73130-RT

== ENCOUNTER → 2018-12-11 | Outpatient (CLI) | payer OTHER ==
--- NOTE | 2018-12-11 15:33 | DIREP ---
PROCEDURE:CHEST 2 VIEWS COMPARISON:[facility], CR, XRAY CHEST SINGLE VW, 10/30/2018, 05:38 PM. INDICATIONS:R04.2 HEMOPTYSIS FINDINGS: LUNGS/PLEURA:No significant pulmonary parenchymal abnormalities. No effusions. VASCULATURE:Normal. Unremarkable pulmonary vasculature. CARDIAC:Normal. No cardiac silhouette abnormality or cardiomegaly. MEDIASTINUM:Normal. No visible mass or adenopathy. BONES:Normal. No fracture or visible bony lesion. OTHER:Negative. CONCLUSION:Normal examination. There is no significant change as compared with the previous examination. Dictated by: David Barboza MD on 12/11/2018 at 03:31 PM
== END | disposition home or self-care (01) ==
LOC: RAD 14:46
PROVIDERS: ATTEND Internal Medicine
DX: R04.2 Hemoptysis (principal)
CPT/HCPCS: 71046

== ENCOUNTER 2018-12-30 17:34 | Emergency (ER) | payer OTHER ==
[~2018-12-30] VITALS: Ht 172.7 cm; Wt 92.1 kg
[2018-12-30] MEDS ORDERED: PHENERGAN IM STA (18:50)
[2018-12-30] MEDS ORDERED: DEMEROL IM STA (18:50)
[2018-12-30 18:57] VITALS: BP 140/82
--- NOTE | 2018-12-30 18:58 | ER.PDOC ---
General Chief Complaint: Requesting Medical Care Stated Complaint: MIGRAINE, NAUSEA, VOMITING Time seen by MD: 18:45 Source: patient Exam Limitations: no limitations History of Present Illness Initial Comments Headache, nausea, vomiting and diarrhea for the last 4 days, similar to similar migraines, but, also bilateral ear pain Timing/Duration: 1 week Severity/Quality: severe, constant, pressure, sharp Prior Headaches/Recent Trauma: no recent headache/trauma Associated Symptoms: nausea/vomiting Allergies: Coded Allergies: Penicillins (Verified Allergy, Unknown, Hives, 05/05/17) amoxicillin (Verified Allergy, Unknown, Anaphylaxis Shock, 03/17/18) ketorolac (Verified Allergy, Unknown, Swelling, 05/05/17) naproxen (Verified Allergy, Unknown, 05/05/17) pamabrom (Verified Allergy, Unknown, 05/05/17) sulfamethoxazole (Verified Allergy, Unknown, Hives, 05/05/17) tramadol (Verified Allergy, Unknown, Hives, 05/05/17) trimethoprim (Verified Allergy, Unknown, Hives, 05/05/17) Past Medical History Surgical History: back, tubal, other Social History Drug Use: marijuana Review of Systems Ears, Nose, Mouth, Throat: see HPI Psychiatric/Neurological: see HPI All Other Systems: Reviewed and Negative Physical Exam General Appearance: No Apparent Distress, WD/WN Head/Eyes: eyes nml inspection, no facial swelling, no nystagmus, PERRL ENT: nml ENT inspection (there is bilateral TMJ), pharynx nml Neck: nml inspection, Supple Cardiovascular: Normal Peripheral Pulses, Regular Rate, Rhythm, No Edema, No Gallop, No JVD, No Murmur Respiratory: chest non-tender, lungs clear, normal breath sounds, no respiratory distress, no accessory muscle use Gastrointestinal: Normal Bowel Sounds, No Organomegaly, No Pulsatile Mass, Non Tender, Soft Back: Normal Inspection, No CVA Tenderness, No Vertebral Tenderness Extremities: Normal Range of Motion, Non-Tender, Normal Inspection, No Pedal Edema, No Calf Tenderness, Normal Capillary Refill Psychiatric: Alert, Oriented x 3 Cranial Nerves: Normal Hearing, Normal Speech, PERRL Coordination/Gait: Normal Finger to Nose, Normal Gait Motor/Sensory: No Motor Deficit, No Sensory Deficit, No Pronator Drift, Negative Babinski's Sign Skin: Warm/Dry, Normal Color Lymphatic: No Adenopathy Results/Orders Results/Orders Orders - MONA DALE MD Meperidine Hcl/Pf (Demerol) (12/30/18 18:50) Promethazine Hcl (Phenergan) (12/30/18 18:50) Departure Time of Disposition: 18:57 Disposition: 01 HOME, SELF-CARE Impression: Primary Impression: Migraine Additional Impressions: Nausea & vomiting Diarrhea TMJ arthralgia Condition: Stable Patient Instructions: Migraine Headache, [id number], Temporomandibular Joint Pain-Brief Referrals: KEE FERNÁNDEZ MD (PCP) PRIMARY CARE PROVIDER Duration or Time Spent with Pa: 15 MONA DLAE MD Dec 30, 2018 18:58
[2018-12-30] MEDS ORDERED: PHENERGAN ONE (19:01)
[2018-12-30] MEDS ORDERED: DEMEROL ONE (19:11)
[2018-12-30 20:17] VITALS: BP 140/82
== END 2018-12-30 20:19 | disposition home or self-care (01) ==
LOC: ER 17:34
DX: G43.909 Migraine, unspecified, not intractable, without status migrainosus (principal); M26.623 Arthralgia of bilateral temporomandibular joint; F12.10 Cannabis abuse, uncomplicated; Z88.0 Allergy status to penicillin; Z88.1 Allergy status to other antibiotic agents; Z88.2 Allergy status to sulfonamides; Z88.6 Allergy status to analgesic agent; Z88.8 Allergy status to other drugs, medicaments and biological substances; Z98.51 Tubal ligation status
CPT/HCPCS: 96372; 99284; J2175; J2550

== ENCOUNTER 2018-12-31 16:11 | Emergency (ER) | payer OTHER ==
[~2018-12-31] VITALS: Ht 172.7 cm; Wt 92.1 kg
[2018-12-31 16:29] VITALS: BP 141/85
--- NOTE | 2018-12-31 16:38 | ER.PDOC ---
General Chief Complaint: Earache Stated Complaint: LEFT SIDE EARACHE Time seen by MD: 16:36 Source: patient Exam Limitations: no limitations History of Present Illness Initial Comments Left earache for past few days. Seen in the ED yesterday for same. Timing/Duration: gradual Severity: moderate Location of Pain: (L) Ear Associated Symptoms: sharp earache Prior symptoms/Treatment: Similar symptoms previous, Recenly Seen, Treated by Doctor Allergies: Coded Allergies: Penicillins (Verified Allergy, Unknown, Hives, 05/05/17) amoxicillin (Verified Allergy, Unknown, Anaphylaxis Shock, 03/17/18) ketorolac (Verified Allergy, Unknown, Swelling, 05/05/17) naproxen (Verified Allergy, Unknown, 05/05/17) pamabrom (Verified Allergy, Unknown, 05/05/17) sulfamethoxazole (Verified Allergy, Unknown, Hives, 05/05/17) tramadol (Verified Allergy, Unknown, Hives, 05/05/17) trimethoprim (Verified Allergy, Unknown, Hives, 05/05/17) Past Medical History Surgical History: back, cholecystectomy, tubal LMP (females 10-50): this week Social History Smoking: greater than 1 pack/day Alcohol Use: rarely Drug Use: marijuana Constitutional: no symptoms reported Ears: see HPI Mouth: no symptoms reported Throat: no symptoms reported Respiratory: no symptoms reported Cardiovascular: no symptoms reported Gastrointestinal: no symptoms reported All Other Systems: Reviewed and Negative Physical Exam General Appearance: alert, no distress Ears: auricle, external. canal nml TM's: nml Mouth/Throat: lips/gums nml, pharynx nml Nose: nml inspection Head/Neck: atraumatic, neck nml inspection Eyes: eyes nml inspection, PERRL, no nystagmus Resp/CVS: no resp distress, lungs clear, heart sounds nml, reg. rate & rhythm Abdomen: non-tender, no organomegaly Skin Exam: Normal Color, Warm/Dry NEURO/PSYCH: oriented X3, mood/effect nml Comments TMJ tenderness on left side Results/Orders Results/Orders Orders - TREVA BONILLA MD Ct Head Wo Contrast (12/31/18 16:32) Cbc With Auto Diff (12/31/18 16:32) Basic Metabolic Panel (12/31/18 16:32) Ibuprofen (Motrin) (12/31/18 17:04) Ibuprofen (Motrin) (12/31/18 17:35) Neomycin/Bacitracin/Polymyxinb (Triple A (12/31/18 17:57) Vital Signs Date Time Temp Pulse Resp B/P (MAP) Pulse Ox O2 Delivery O2 Flow Rate FiO2 12/31/18 16:31 98.9 92 20 98.9 12/31/18 16:29 98.9 92 22 141/85 (103) 98 Room Air 98.9 12/31/18 16:23 98.9 98 20 95 Room Air 98.9 12/30/18 20:17 81 Administered Medications Medications (Trade) Dose Ordered Sig/Bo Route PRN Reason Start Time Stop Time Status Last Admin Dose Admin Ibuprofen (Motrin) 800 mg STAT STAT PO 12/31/18 17:04 12/31/18 17:05 DC 12/31/18 17:40 800 MG Laboratory Tests Test 12/31/18 16:43 White Blood Count 6.8 10^3/uL (4.5-11.0) Red Blood Count 4.62 10^6/uL (4.00-5.20) Hemoglobin 13.9 g/dL (12.0-15.0) Hematocrit 40.1 % (36.0-46.0) Mean Corpuscular Volume 86.8 fL (78-100) Mean Corpuscular Hemoglobin 30.1 pg (26-34) Mean Corpuscular Hemoglobin Concent 34.7 g/dL (33-37) Red Cell Distribution Width 14.7 % (11.5-14.5) H Platelet Count 329 10^3/uL (150-400) Mean Platelet Volume 10.6 fL (7.8-11.0) Neutrophils (%) (Auto) 39.9 % (41.0-85.0) L Lymphocytes (%) (Auto) 47.3 % (24.0-44.0) H Monocytes (%) (Auto) 8.1 % (5.0-12.0) Neutrophils # (Auto) 2.7 10^3/uL (1.8-7.7) Lymphocytes # (Auto) 3.2 10^3/uL (1.0-4.8) Monocytes # (Auto) 0.6 10^3/uL (0.3-0.8) Absolute Immature Granulocyte (auto 0.01 10^3 u/L (0-2) Immature Granulocytes % 0.10 % (0.00-0.50) Eosinophils % 4.3 % (0.0-5.0) Basophils % 0.3 % (0.0-0.2) H Basophils # 0.0 10^3/uL (0.0-0.1) Eosinophil Count 0.3 10^3/uL (0.0-0.2) H Sodium Level 143 mmol/L (132-145) Potassium Level 3.1 mmol/L (3.6-5.2) L Chloride Level 109.0 mmol/L (96-109) Carbon Dioxide Level 24.9 mmol/L (20.0-32) Glucose Level 88 mg/dL (70-110) Blood Urea Nitrogen 14 mg/dL (7-18) Creatinine 0.77 mg/dL (0.59-1.40) Calcium Level 9.0 mg/dL (8.4-10.5) Anion Gap 12.2 Estimated GFR () 99.5 (>/=60) BUN/Creatinine Ratio 18.0 Course Sepsis Screening Results: Posi: POSITIVE SEPSIS RISK Duration or Total Time Spent w: 15 Vitals & review Data Vital Sign - Last 24 Hours 12/30/18 12/31/18 12/31/18 12/31/18 20:17 16:23 16:29 16:31 Temp 98.9 98.9 98.9 98.9 98.9 98.9 Pulse 81 98 92 92 Resp 20 22 20 B/P (MAP) 141/85 (103) Pulse Ox 95 98 O2 Delivery Room Air Room Air Laboratory Tests Test 12/31/18 16:43 White Blood Count 6.8 10^3/uL Red Blood Count 4.62 10^6/uL Hemoglobin 13.9 g/dL Hematocrit 40.1 % Mean Corpuscular Volume 86.8 fL Mean Corpuscular Hemoglobin 30.1 pg Mean Corpuscular Hemoglobin Concent 34.7 g/dL Red Cell Distribution Width 14.7 % Platelet Count 329 10^3/uL Mean Platelet Volume 10.6 fL Neutrophils (%) (Auto) 39.9 % Lymphocytes (%) (Auto) 47.3 % Monocytes (%) (Auto) 8.1 % Neutrophils # (Auto) 2.7 10^3/uL Lymphocytes # (Auto) 3.2 10^3/uL Monocytes # (Auto) 0.6 10^3/uL Absolute Immature Granulocyte (auto 0.01 10^3 u/L Immature Granulocytes % 0.10 % Eosinophils % 4.3 % Basophils % 0.3 % Basophils # 0.0 10^3/uL Eosinophil Count 0.3 10^3/uL Sodium Level 143 mmol/L Potassium Level 3.1 mmol/L Chloride Level 109.0 mmol/L Carbon Dioxide Level 24.9 mmol/L Glucose Level 88 mg/dL Blood Urea Nitrogen 14 mg/dL Creatinine 0.77 mg/dL Calcium Level 9.0 mg/dL Anion Gap 12.2 Estimated GFR () 99.5 BUN/Creatinine Ratio 18.0 Sepsis Infection Criteria Pres: None O2 Sat by Pulse Oximetry: 98 Departure Time of Disposition: 18:05 Disposition: 01 HOME, SELF-CARE Impression: Primary Impression: Temporomandibular joint disorder Condition: Stable Referrals: KEE FERNÁNDEZ MD (PCP) PRIMARY CARE PROVIDER Additional Instructions: Ibuprofen 800mg PO TID for 7 days Flexeril Soft diet for next 1 week F/U with your Dentist in 3-5 days Duration or Time Spent with Pa: 45 mins TREVA BONILLA MD Dec 31, 2018 16:38
[2018-12-31 16:48] LABS: BASOPHIL % 0.3 % (0.0-0.2); EOSINOPHIL # 0.3 10^3/uL (0.0-0.2); EOSINOPHIL % 4.3 % (0.0-5.0); HEMOGLOBIN 13.9 g/dL (12.0-15.0); LYMPHOCYTES # 3.2 10^3/uL (1.0-4.8); LYMPHOCYTES % 47.3 % (24.0-44.0); MEAN CELL HGB 30.1 pg (26-34); MEAN CELL HGB CONCENTRATION 34.7 g/dL (33-37); MEAN CORP VOLUME 86.8 fL (78-100); MEAN PLATELET VOLUME 10.6 fL (7.8-11.0); MONOCYTES # 0.6 10^3/uL (0.3-0.8); MONOCYTES % 8.1 % (5.0-12.0); NEUTROPHIL # 2.7 10^3/uL (1.8-7.7); NEUTROPHILS % 39.9 % (41.0-85.0); RED CELL DISTRIBUTION WIDTH 14.7 % (11.5-14.5); WHITE BLOOD CELL 6.8 10^3/uL (4.5-11.0)
[2018-12-31 17:00] LABS: CARBON DIOXIDE 24.9 mmol/L (20.0-32)
[2018-12-31] MEDS ORDERED: MOTRIN PO STA (17:04)
[2018-12-31] MEDS ORDERED: MOTRIN ONE (17:35)
--- NOTE | 2018-12-31 17:55 | DIREP ---
PROCEDURE:CT HEAD OR BRAIN W/O CONTRAST COMPARISON:[facility], CT, CT HEAD BRAIN W/O CONTRAST, 09/27/2017, 11:19 PM. INDICATIONS:Left earache TECHNIQUE:CT images were created without intravenous contrast. FINDINGS: VENTRICLES:The ventricles are normal in size and configuration. CEREBRUM:Normal cerebral morphology with appropriate dumont white matter differentiation. CEREBELLUM:Negative. BRAINSTEM:Negative. BASAL CISTERNS:Negative. HEMORRHAGE:No MASS LESION:No ACUTE INFARCT:No SKULL:Normal. SINUSES:Normal. OTHER:None CONCLUSION:No acute intracranial abnormality Dictated by: Roland Arzate DO on 12/31/2018 at 05:53 PM
[2018-12-31] MEDS ORDERED: TRIPLE ANTIBIOTIC OINTMENT TP ONE (17:57)
[2018-12-31 18:24] VITALS: BP 141/85
== END 2018-12-31 18:20 | disposition home or self-care (01) ==
LOC: ER 16:11
DX: M26.602 Left temporomandibular joint disorder, unspecified (principal); F17.210 Nicotine dependence, cigarettes, uncomplicated; Z88.0 Allergy status to penicillin; Z88.1 Allergy status to other antibiotic agents; Z88.2 Allergy status to sulfonamides; Z88.6 Allergy status to analgesic agent; Z88.8 Allergy status to other drugs, medicaments and biological substances; Z90.49 Acquired absence of other specified parts of digestive tract
CPT/HCPCS: 36415; 70450; 80048; 85025; 99285

== ENCOUNTER → 2019-01-21 | Outpatient (CLI) | payer OTHER | END | disposition home or self-care (01) | LOC: LAB 16:53 | PROVIDERS: ATTEND Internal Medicine | DX: B82.9 Intestinal parasitism, unspecified (principal) | CPT/HCPCS: 87177 ==

== ENCOUNTER 2019-02-05 16:24 | Emergency (ER) | payer OTHER ==
[~2019-02-05] VITALS: Ht 170.2 cm; Wt 89.8 kg
[2019-02-05 16:50] VITALS: BP 115/73
--- NOTE | 2019-02-05 17:03 | ER.PDOC ---
General Chief Complaint: Psychiatric Complaint Stated Complaint: MEDICAL CLEARANCE TRAVEL OUT OF US: No Time seen by MD: 17:03 Source: patient, family Exam Limitations: no limitations History of Present Illness Initial Comments 43 Y/O F WITH HX TO ED WITH FAMILY HAVING AN ANXIETY ATTACK. FEELS LIKE SHE NEEDS TO TALK TO SOMEBODY, DENIES SUICIDAL OR HOMICIDAL IDEATIONS. NO CHEST PAIN, NO SOB, NO FEVER, STATES FEELS REAL ANXIOUS ABOUT POOR HEALTH OF HER MOM. Allergies: Coded Allergies: Penicillins (Verified Allergy, Unknown, Hives, 05/05/17) amoxicillin (Verified Allergy, Unknown, Anaphylaxis Shock, 03/17/18) ketorolac (Verified Allergy, Unknown, Swelling, 05/05/17) naproxen (Verified Allergy, Unknown, 05/05/17) pamabrom (Verified Allergy, Unknown, 05/05/17) sulfamethoxazole (Verified Allergy, Unknown, Hives, 05/05/17) tramadol (Verified Allergy, Unknown, Hives, 05/05/17) trimethoprim (Verified Allergy, Unknown, Hives, 05/05/17) Past Medical History Medical History: other Surgical History: back, tubal, other LMP (females 10-50): last week Social History Smoking: less than 1 pack/day Alcohol Use: none Drug Use: none Review of Systems Constitutional: no symptoms reported EENTM: no symptoms reported Respiratory: no symptoms reported Cardiovascular: no symptoms reported Gastrointestinal: no symptoms reported Genitourinary: no symptoms reported Musculoskeletal: no symptoms reported Skin: no symptoms reported Psychiatric/Neurological: anxiety, emotional problems Hematologic/Lymphatic: no symptoms reported Immunological/Allergic: no symptoms reported Physical Exam General Appearance: Anxious, Moderate Distress EENT: eyes nml inspection, nml ENT inspection, pharynx nml Neck: Non-Tender, Full Range of Motion, Supple, Normal Inspection Respiratory: chest non-tender, lungs clear, normal breath sounds, no respiratory distress, no accessory muscle use CVS: reg rate & rhythm, no murmur, no gallop, nml capillary refill Gastrointestinal: Normal Bowel Sounds, No Organomegaly, No Pulsatile Mass, Non Tender Back: Normal Inspection Extremities: Normal Range of Motion, Non-Tender, Normal Inspection 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/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: 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 as Tested, No Motor/Sensory Deficits, Alert, Normal Mood/Affect, Oriented x 3 Skin: Normal Color Lymphatic: No Adenopathy Results/Orders Results/Orders Orders - ALLEGRA CEJA DO Lorazepam (Ativan) (02/05/19 17:10) Lorazepam (Ativan) (02/05/19 17:20) Vital Signs Date Time Temp Pulse Resp B/P (MAP) Pulse Ox O2 Delivery O2 Flow Rate FiO2 02/05/19 16:50 98.2 96 17 115/73 (87) 97 Room Air 02/05/19 16:36 98.2 96 17 02/05/19 16:36 98.2 96 17 97 Room Air 12/31/18 18:24 92 Administered Medications Medications (Trade) Dose Ordered Sig/Bo Route PRN Reason Start Time Stop Time Status Last Admin Dose Admin Lorazepam (Ativan) 1 mg STAT STAT PO 02/05/19 17:10 02/05/19 17:12 DC 02/05/19 17:24 1 MG Progress Progress DIFF DX IN DETAIL , PATIENT FEELS MUCH BETTER AND WILL FOLLOW UP ON OUT PATIENT , AT D/C NON SUICIDAL/HOMICIDAL. Departure Time of Disposition: 17:49 Disposition: 01 HOME, SELF-CARE Impression: Primary Impression: Anxiety Condition: Stable Patient Instructions: Anxiety and Panic Attacks, Tuba-cy-[id number] Referrals: KEE FERNÁNDEZ MD (PCP) PRIMARY CARE PROVIDER Additional Instructions: TO ED IF WORSE IN ANY WAY, FOLLOW UP DISCUSSED. D/C HOME TO FAMILY. Duration or Time Spent with Pa: 15 MIN ALLEGRA CEJA DO Feb 05, 2019 17:03
[2019-02-05] MEDS ORDERED: ATIVAN PO STA (17:10)
[2019-02-05] MEDS ORDERED: ATIVAN ONE (17:20)
[2019-02-05 18:31] VITALS: BP 115/73
== END 2019-02-05 18:03 | disposition home or self-care (01) ==
LOC: ER 16:24
DX: F41.9 Anxiety disorder, unspecified (principal); F17.210 Nicotine dependence, cigarettes, uncomplicated; Z79.899 Other long term (current) drug therapy; Z88.0 Allergy status to penicillin; Z88.1 Allergy status to other antibiotic agents; Z88.2 Allergy status to sulfonamides; Z88.6 Allergy status to analgesic agent; Z88.8 Allergy status to other drugs, medicaments and biological substances
CPT/HCPCS: 99282

== ENCOUNTER 2019-03-04 12:37 | Emergency (ER) | payer OTHER ==
[~2019-03-04] VITALS: Ht 172.7 cm; Wt 86.6 kg
--- NOTE | 2019-03-04 12:45 | NUR ---
43 year old female walked into ER C/O back and neck pain 04/24. Hx of back surgries.
[2019-03-04 12:59] VITALS: BP 115/93
[2019-03-04] MEDS ORDERED: NORCO 7.5MG PO STA (13:01)
[2019-03-04] MEDS ORDERED: NORCO 7.5MG PO ONE (13:01)
--- NOTE | 2019-03-04 13:06 | ER.PDOC ---
General Chief Complaint: Requesting Medical Care Stated Complaint: FALL,LEFT ARM,HEAD,NECK INJURY Time seen by MD: 13:04 Source: patient Exam Limitations: no limitations History of Present Illness Initial Comments Head, neck, lower back, left knee and elbow S/P fall Occurred: just prior to arrival Where: home Severity: moderate Context: Tripped Loss of Consciousness: No Loss of Consciousness Associated Symptoms: headache, neck pain Allergies: Coded Allergies: morphine (Verified Allergy, Severe, Shortness of Breath, 03/04/19) Penicillins (Verified Allergy, Unknown, Hives, 05/05/17) amoxicillin (Verified Allergy, Unknown, Anaphylaxis Shock, 03/17/18) ketorolac (Verified Allergy, Unknown, Swelling, 05/05/17) naproxen (Verified Allergy, Unknown, 05/05/17) pamabrom (Verified Allergy, Unknown, 05/05/17) sulfamethoxazole (Verified Allergy, Unknown, Hives, 05/05/17) tramadol (Verified Allergy, Unknown, Hives, 05/05/17) trimethoprim (Verified Allergy, Unknown, Hives, 05/05/17) Past Medical History Surgical History: back, tubal, other Social History Drug Use: none Review of Systems Constitutional: no symptoms reported Respiratory: no symptoms reported Cardiovascular: no symptoms reported Gastrointestinal: no symptoms reported Musculoskeletal: see HPI All Other Systems: Reviewed and Negative Physical Exam General Appearance: No Apparent Distress, WD/WN Head: No Evidence of Injury Neck: Tenderness Cardiovascular/Respiratory: Regular Rate, Rhythm, No M/R/G, Normal Peripheral Pulses, No JVD, Normal Breath Sounds, No Respiratory Distress Back: Vertebral Tenderness (L spine) Extremities: Pain With Movement (left elbow and knee) 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, No Motor/Sensory Deficits, Alert, Normal Mood/Affect, Oriented x 3 Skin: Normal Color, Warm/Dry [place] Coma Score Best Eye Response: (4) Open Spontaneously Best Verbal Response: (5) Oriented Best Motor Response: (6) Obeys Commands Results/Orders Results/Orders Orders - TREVA BONILLA MD Hydrocodone/Acetaminophen (Hartman 7.5mg) (03/04/19 13:01) Hydrocodone/Acetaminophen ([place] 7.5mg) (03/04/19 13:01) Ct Head Wo Contrast (03/04/19 13:01) Ct Cervical Spine (03/04/19 13:01) Xr Lspine 2-3v (03/04/19 13:01) Xr Elbow Lt (03/04/19 13:01) Xr Knee Lt 2v (03/04/19 13:01) Ondansetron (Zofran Odt) (03/04/19 14:29) Vital Signs Date Time Temp Pulse Resp B/P (MAP) Pulse Ox O2 Delivery O2 Flow Rate FiO2 03/04/19 12:59 98.0 95 18 03/04/19 12:59 98.0 95 18 100 Room Air 03/04/19 12:59 98.0 95 115/93 (100) 100 Room Air 02/05/19 18:31 208.8 96 Administered Medications Medications (Trade) Dose Ordered Sig/Bo Route PRN Reason Start Time Stop Time Status Last Admin Dose Admin Acetaminophen/ Hydrocodone Bitart ([place] 7.5mg) 1 each STAT STAT PO 03/04/19 13:01 03/04/19 13:05 DC 03/04/19 13:56 1 EACH Progress Progress See imaging studies. Departure Time of Disposition: 14:34 Disposition: 01 HOME, SELF-CARE Impression: Primary Impression: Multiple contusions Condition: Stable Referrals: KEE FERNÁNDEZ MD (PCP) PRIMARY CARE PROVIDER Additional Instructions: Continue home medications F/U with your PCP in 2-3 days Duration or Time Spent with Pa: 60 mins TREVA BONILLA MD Mar 04, 2019 13:06
--- NOTE | 2019-03-04 14:23 | DIREP ---
PROCEDURE:XRAY KNEE 2 VWS-LT COMPARISON:None. INDICATIONS:Pain S/P fall FINDINGS: BONES:Normal. JOINTS:Normal. SOFT TISSUES:There appears to be soft tissue swelling of the anterior aspect of the distal thigh. OTHER:No additional findings. CONCLUSION: 1. No fracture or hemarthrosis is noted. Dictated by: Paco Camacho M.D. on 03/04/2019 at 01:21 PM
--- NOTE | 2019-03-04 14:24 | DIREP ---
PROCEDURE:XRAY ELBOW 2VWS-LT COMPARISON:None. INDICATIONS:injury S/P fall FINDINGS: BONES:Normal. JOINTS:Normal. No displaced anterior or posterior fat pads. SOFT TISSUES:Normal. OTHER:Normal. CONCLUSION: 1. No fracture or hemarthrosis. Dictated by: Paco Camacho M.D. on 03/04/2019 at 01:22 PM
--- NOTE | 2019-03-04 14:25 | DIREP ---
PROCEDURE:CT HEAD OR BRAIN W/O CONTRAST COMPARISON:[facility], CT, CT HEAD BRAIN W/O CONTRAST, 12/31/2018, 05:44 PM. INDICATIONS:Injury S/P fall TECHNIQUE:CT images were created without intravenous contrast. FINDINGS: VENTRICLES:The ventricles are normal in size and configuration. CEREBRUM:Normal cerebral morphology with appropriate dumont white matter differentiation. CEREBELLUM:Negative. BRAINSTEM:Negative. BASAL CISTERNS:Negative. HEMORRHAGE:No MASS LESION:No ACUTE INFARCT:No SKULL:Normal. SINUSES:Normal. OTHER:None CONCLUSION:Normal examination. Dictated by: Ayush Champagne M.D. on 03/04/2019 at 02:22 PM
--- NOTE | 2019-03-04 14:27 | DIREP ---
PROCEDURE:XRAY SPINE LUMBAR 2-3 VWS COMPARISON:[facility], CT, CT SPINE LUMBAR W/O, 03/12/2018, 06:00 PM. INDICATIONS:Pain S/P fall FINDINGS: ALIGNMENT:Normal. VERTEBRAE:No fracture is seen. Mild anterior spurring is noted at the inferior margin of the L5 vertebral body. DISK SPACES:Fairly severe degenerative disc disease with vacuum disc at L5/S1 is noted which was present on 03/12/2018 (CT reconstructions). A herniated disc at L5/S1 was noted on prior CT scan. SPONDYLOLISTHESIS:None. SACROILIAC JOINTS:Normal. OTHER:Normal. CONCLUSION: 1. No fracture or spondylolisthesis demonstrated. 2. Fairly severe degenerative disc disease at L5/S1 which was present on CT reconstructions dating back to 03/12/2018. Dictated by: Paco Camacho M.D. on 03/04/2019 at 01:23 PM
[2019-03-04] MEDS ORDERED: ZOFRAN ODT ONE (14:29)
--- NOTE | 2019-03-04 14:29 | DIREP ---
PROCEDURE:CT CERVICAL SPINE WITHOUT CONTRAST TECHNIQUE:Axial cuts were obtained through the cervical spine. The images were viewed at bone and soft tissue settings. Sagittal and coronal reconstructions are provided. COMPARISON:None. INDICATIONS:Injury S/P fall FINDINGS: ALIGNMENT:Normal. VERTEBRAE:Normal. PARASPINAL AREA:Normal. OTHER:No additional findings. CERVICAL DISC LEVELS C2-C3:Normal. C3-C4:Normal. C4-C5:Left facet arthropathy. C5-C6:Normal. C6-C7:Normal. C7-T1:Normal. CONCLUSION:No acute cervical spine abnormalities. Left facet arthropathy at C4-C5. Dictated by: Ayush Champagne M.D. on 03/04/2019 at 02:24 PM
[2019-03-04 14:37] VITALS: BP 132/80
[2019-03-04] MEDS ORDERED: ZOFRAN ODT SL ONE (14:38)
[2019-03-04] MEDS ORDERED: ZOFRAN ODT SL STA (14:39)
== END 2019-03-04 14:45 | disposition home or self-care (01) ==
LOC: ER 12:37
DX: S10.93XA Contusion of unspecified part of neck, initial encounter (principal); S00.93XA Contusion of unspecified part of head, initial encounter; S30.0XXA Contusion of lower back and pelvis, initial encounter; S80.02XA Contusion of left knee, initial encounter; S50.02XA Contusion of left elbow, initial encounter; Z98.890 Other specified postprocedural states; Z98.51 Tubal ligation status; Z88.0 Allergy status to penicillin; Z88.1 Allergy status to other antibiotic agents; Z88.2 Allergy status to sulfonamides; Z88.5 Allergy status to narcotic agent; Z88.6 Allergy status to analgesic agent; Z88.8 Allergy status to other drugs, medicaments and biological substances; W01.0XXA Fall on same level from slipping, tripping and stumbling without subsequent striking against object, initial encounter; Y93.89 Activity, other specified; Y92.098 Other place in other non-institutional residence as the place of occurrence of the external cause; Y99.8 Other external cause status
CPT/HCPCS: 70450; 72100; 72125; 73070; 73560; 99284; Q0162 ×2

== ENCOUNTER 2019-03-28 16:32 | Emergency (ER) | payer OTHER ==
[~2019-03-28] VITALS: Ht 170.2 cm; Wt 86.2 kg
[2019-03-28 17:05] VITALS: BP 126/85
[2019-03-28] MEDS ORDERED: ZOFRAN ODT SL STA (17:30)
[2019-03-28 17:50] LABS: BASOPHIL % 0.5 % (0.0-0.2); EOSINOPHIL # 0.2 10^3/uL (0.0-0.2); EOSINOPHIL % 1.9 % (0.0-5.0); HEMOGLOBIN 14.1 g/dL (12.0-15.0); LYMPHOCYTES # 3.4 10^3/uL (1.0-4.8); MEAN CELL HGB 29.6 pg (26-34); MEAN CELL HGB CONCENTRATION 33.4 g/dL (33-37); MEAN CORP VOLUME 88.5 fL (78-100); MEAN PLATELET VOLUME 10.4 fL (7.8-11.0); MONOCYTES # 0.6 10^3/uL (0.3-0.8); MONOCYTES % 6.8 % (5.0-12.0); NEUTROPHIL # 4.3 10^3/uL (1.8-7.7); NEUTROPHILS % 50.7 % (41.0-85.0); RED CELL DISTRIBUTION WIDTH 14.4 % (11.5-14.5); WHITE BLOOD CELL 8.5 10^3/uL (4.5-11.0)
[2019-03-28 17:51] LABS: BILIRUBIN,URINE NEGATIVE (NEGATIVE); UROBILINOGEN,URINE NORMAL (NEGATIVE)
[2019-03-28 17:54] LABS: UA COLOR YELLOW (YELLOW)
[2019-03-28 17:55] LABS: APPEARANCE,URINE HAZY (CLEAR)
[2019-03-28] MEDS ORDERED: SUBLIMAZE ONE (17:57)
[2019-03-28] MEDS ORDERED: ZOFRAN ODT ONE (17:57)
[2019-03-28] MEDS: SUBLIMAZE IM STA ×2 (17:58→18:04)
[2019-03-28 18:06] LABS: CALCIUM 9.5 mg/dL (8.4-10.5); CARBON DIOXIDE 23.7 mmol/L (20.0-32)
[2019-03-28 18:09] LABS: YEAST,URINE FEW
--- NOTE | 2019-03-28 18:35 | DIREP ---
PROCEDURE:CT ABDOMEN/PELVIS W/O CONTRAST COMPARISON:CT, CT ABD/PELVIS W/ CONTRAST, 03/29/2018, 09:03 PM. INDICATIONS:luq,llq pain, diarrhea, ? colitis TECHNIQUE:Axial images were created through the abdomen and pelvis without intravenous contrast material. No oral contrast was administered. Sagittal and coronal reconstructions were performed from source images. FINDINGS: LUNG BASES:No suspicious airspace consolidation or pleural effusion. LIVER:No suspicious focal hepatic lesion. BILIARY:Previous cholecystectomy. PANCREAS:No suspicious pancreatic abnormality. SPLEEN:The spleen is not significantly enlarged. No focal splenic lesion identified. ADRENALS:The adrenal glands are unremarkable. URINARY TRACT:No urinary calculi or hydronephrosis. AORTA/VASCULAR:No aneurysmal dilatation. RETROPERITONEUM:No suspicious retroperitoneal lymphadenopathy. BOWEL/MESENTERY:No evidence for small bowel obstruction. No gross colonic abnormality. The appendix is believed to be identified and appears within normal limits. No free air. ABDOMINAL WALL:No significant hernia. PELVIC ORGANS:Urinary bladder is essentially empty, limiting evaluation. The uterus is not enlarged for the patient's age. No free fluid within the pelvis. BONES:Advanced degenerative changes of the lumbosacral junction. Relatively mild scattered degenerative changes within the remainder of the imaged spine. CONCLUSION: 1. No acute intra-abdominal abnormality is identified. No evidence for small bowel obstruction. No gross colonic abnormality. The appendix believed to be identified and appears within normal limits. 2. Additional findings as discussed above. Dictated by: Joselito Fonseca M.D. On 03/28/2019 at 06:27 PM
--- NOTE | 2019-03-28 20:09 | ER.PDOC ---
General Chief Complaint: Abdomen Pain Stated Complaint: N/V/D, ABD PAIN Time seen by MD: 19:00 Source: patient Exam Limitations: no limitations History of Present Illness Initial Comments this patient was seen by dr rodriguez, there was no chart on record so I am completing my portion of the chart at this time as the patient was signed out to me, patient complains of mid abd pain and watery diarrhea for one day, no known sick contacts or bad food. Severity/Quality: moderate Radiation: other Associated Symptoms: diarrhea Exacerbated by: other Relieved By: other Allergies: Coded Allergies: morphine (Verified Allergy, Severe, Shortness of Breath, 03/04/19) Penicillins (Verified Allergy, Unknown, Hives, 05/05/17) amoxicillin (Verified Allergy, Unknown, Anaphylaxis Shock, 03/17/18) ketorolac (Verified Allergy, Unknown, Swelling, 05/05/17) naproxen (Verified Allergy, Unknown, 05/05/17) pamabrom (Verified Allergy, Unknown, 05/05/17) sulfamethoxazole (Verified Allergy, Unknown, Hives, 05/05/17) tramadol (Verified Allergy, Unknown, Hives, 05/05/17) trimethoprim (Verified Allergy, Unknown, Hives, 05/05/17) Vital Signs First Vital Signs Date Time Temp Pulse Resp B/P (MAP) Pulse Ox O2 Delivery O2 Flow Rate FiO2 03/04/19 14:37 80 03/28/19 17:05 98.0 17 98 Room Air 03/28/19 17:05 126/85 (99) Last Vital Signs Date Time Temp Pulse Resp B/P (MAP) Pulse Ox O2 Delivery O2 Flow Rate FiO2 03/28/19 20:15 98.0 74 16 122/72 (89) 96 Room Air Past Medical History Surgical History: back Social History Smoking: less than 1 pack/day Alcohol Use: rarely Drug Use: marijuana Constitutional: denies fever Respiratory: denies cough, denies SOB with exertion Cardiovascular: denies chest pain, denies syncope Gastrointestinal: abdominal pain, diarrhea Musculoskeletal: denies back pain Skin: denies lumps, denies rash Psychiatric/Neurological: denies depressed, denies headache Physical Exam General Appearance: No Apparent Distress HEENT: PERRL/EOMI Neck: Non-Tender Respiratory: chest non-tender, lungs clear Cardiovascular: Regular Rate, Rhythm Gastrointestinal: Soft, Tenderness Back: Normal Inspection Extremities: Non-Tender Neurologic/Psychiatric: Normal Mood/Affect Results/Orders Results/Orders Orders - MYNOR RAND MD Clostridium Difficile Panel (03/28/19 19:20) Vital Signs Date Time Temp Pulse Resp B/P (MAP) Pulse Ox O2 Delivery O2 Flow Rate FiO2 03/28/19 20:15 98.0 74 16 122/72 (89) 96 Room Air 03/28/19 17:05 98.0 80 17 03/28/19 17:05 98.0 80 17 126/85 (99) 98 Room Air 03/28/19 17:05 98.0 89 17 98 Room Air 03/04/19 14:37 80 Administered Medications Medications (Trade) Dose Ordered Sig/Bo Route PRN Reason Start Time Stop Time Status Last Admin Dose Admin Fentanyl Citrate (Sublimaze) 100 mcg STAT STAT IM 03/28/19 17:30 03/28/19 17:33 DC 03/28/19 18:04 100 MCG Ondansetron HCl (Zofran Odt) 4 mg STAT STAT SL 03/28/19 17:30 03/28/19 17:33 DC 03/28/19 17:58 4 MG Laboratory Tests Test 03/28/19 17:03 03/28/19 17:10 03/28/19 17:41 Clostridioides difficile Screen NEGATIVE Clostridioides difficile Toxin A & B NEGATIVE Urine Collection Type UNKNOWN Urine Color YELLOW (YELLOW) Urine Appearance HAZY (CLEAR) H Urine Bilirubin NEGATIVE MG/DL (NEGATIVE) Urine Ketones 5 mg/dL (NEGATIVE) H Urine Specific [place] 1.030 (1.005-1.035) Urine pH 5 (5.0-6.0) Urine Protein 15 mg/dL (NEGATIVE) H Urine Urobilinogen NORMAL (NEGATIVE) Urine Nitrate NEGATIVE (NEGATIVE) Urine Leukocyte Esterase NEGATIVE (NEGATIVE) Urine Blood 250 4+ (NEGATIVE) H Urine RBC 5-10 RBC/HPF (NONE SEEN) H Urine WBC 0-2 WBC/HPF (0-2) Urine Squamous Epithelial Cells FEW #/HPF (FEW) Urine Bacteria FEW (NONE SEEN) H Urine Hyaline Casts 0-1 (NONE SEEN) Urine Fine Granular Casts 0-1 Urine Coarse Granular Casts 0-2 #/LPF Urine Yeast FEW Urine Glucose NORMAL (NEGATIVE) White Blood Count 8.5 10^3/uL (4.5-11.0) Red Blood Count 4.77 10^6/uL (4.00-5.20) Hemoglobin 14.1 g/dL (12.0-15.0) Hematocrit 42.2 % (36.0-46.0) Mean Corpuscular Volume 88.5 fL (78-100) Mean Corpuscular Hemoglobin 29.6 pg (26-34) Mean Corpuscular Hemoglobin Concent 33.4 g/dL (33-37) Red Cell Distribution Width 14.4 % (11.5-14.5) Platelet Count 333 10^3/uL (150-400) Mean Platelet Volume 10.4 fL (7.8-11.0) Neutrophils (%) (Auto) 50.7 % (41.0-85.0) Lymphocytes (%) (Auto) 40.0 % (24.0-44.0) Monocytes (%) (Auto) 6.8 % (5.0-12.0) Neutrophils # (Auto) 4.3 10^3/uL (1.8-7.7) Lymphocytes # (Auto) 3.4 10^3/uL (1.0-4.8) Monocytes # (Auto) 0.6 10^3/uL (0.3-0.8) Absolute Immature Granulocyte (auto 0.01 10^3 u/L (0-2) Immature Granulocytes % 0.10 % (0.00-0.50) Eosinophils % 1.9 % (0.0-5.0) Basophils % 0.5 % (0.0-0.2) H Basophils # 0.0 10^3/uL (0.0-0.1) Eosinophil Count 0.2 10^3/uL (0.0-0.2) Prothrombin Time 9.9 SEC (9.4-11.5) Prothrombin Time INR (Non-Therap) 1.0 Activated Partial Thromboplast Time 24.4 SEC (24.67-30.72) Sodium Level 144 mmol/L (132-145) Potassium Level 3.4 mmol/L (3.6-5.2) L Chloride Level 108.0 mmol/L (96-109) Carbon Dioxide Level 23.7 mmol/L (20.0-32) Anion Gap 15.7 Blood Urea Nitrogen 16 mg/dL (7-18) Creatinine 0.97 mg/dL (0.59-1.40) Estimated GFR () 76.2 (>/=60) BUN/Creatinine Ratio 16.0 Glucose Level 92 mg/dL (70-110) Calcium Level 9.5 mg/dL (8.4-10.5) Total Bilirubin 0.4 mg/dL (0.2-1.0) Aspartate Amino Transferase (AST) 14 U/L (0-35) Alanine Aminotransferase (ALT) 11 U/L (12-78) L Alkaline Phosphatase 61 U/L (50-136) Total Protein 7.6 g/dL (6.4-8.2) Albumin 3.9 g/dL (3.4-5.0) Globulin 3.7 Amylase Level 30 U/L (25-115) Lipase 81 U/L (114-286) L Helicobacter pylori Screen NEGATIVE (NEGATIVE) Course Sepsis Screening Results: Posi: POSITIVE SEPSIS RISK Duration or Total Time Spent w: 60 mins Vitals & review Data Vital Sign - Last 24 Hours 03/04/19 03/28/19 03/28/19 03/28/19 14:37 17:05 17:05 17:05 Temp 98.0 98.0 98.0 Pulse 80 89 80 80 Resp 17 17 17 B/P (MAP) 126/85 (99) Pulse Ox 98 98 O2 Delivery Room Air Room Air 03/28/19 20:15 Temp 98.0 Pulse 74 Resp 16 B/P (MAP) 122/72 (89) Pulse Ox 96 O2 Delivery Room Air Laboratory Tests Test 03/28/19 17:03 03/28/19 17:10 03/28/19 17:41 Clostridium difficile Screen NEGATIVE Clostridium Difficile Toxin A & B NEGATIVE Urine Collection Type UNKNOWN Urine Color YELLOW Urine Appearance HAZY Urine Bilirubin NEGATIVE MG/DL Urine Ketones 5 mg/dL Urine Specific [place] 1.030 Urine pH 5 Urine Protein 15 mg/dL Urine Urobilinogen NORMAL Urine Nitrate NEGATIVE Urine Leukocyte Esterase NEGATIVE Urine Blood 250 4+ Urine RBC 5-10 RBC/HPF Urine WBC 0-2 WBC/HPF Urine Squamous Epithelial Cells FEW #/HPF Urine Bacteria FEW Urine Hyaline Casts 0-1 Urine Fine Granular Casts 0-1 Urine Coarse Granular Casts 0-2 #/LPF Urine Yeast FEW Urine Glucose NORMAL White Blood Count 8.5 10^3/uL Red Blood Count 4.77 10^6/uL Hemoglobin 14.1 g/dL Hematocrit 42.2 % Mean Corpuscular Volume 88.5 fL Mean Corpuscular Hemoglobin 29.6 pg Mean Corpuscular Hemoglobin Concent 33.4 g/dL Red Cell Distribution Width 14.4 % Platelet Count 333 10^3/uL Mean Platelet Volume 10.4 fL Neutrophils (%) (Auto) 50.7 % Lymphocytes (%) (Auto) 40.0 % Monocytes (%) (Auto) 6.8 % Neutrophils # (Auto) 4.3 10^3/uL Lymphocytes # (Auto) 3.4 10^3/uL Monocytes # (Auto) 0.6 10^3/uL Absolute Immature Granulocyte (auto 0.01 10^3 u/L Immature Granulocytes % 0.10 % Eosinophils % 1.9 % Basophils % 0.5 % Basophils # 0.0 10^3/uL Eosinophil Count 0.2 10^3/uL Prothrombin Time 9.9 SEC Prothrombin Time INR (Non-Therap) 1.0 Activated Partial Thromboplast Time 24.4 SEC Sodium Level 144 mmol/L Potassium Level 3.4 mmol/L Chloride Level 108.0 mmol/L Carbon Dioxide Level 23.7 mmol/L Anion Gap 15.7 Blood Urea Nitrogen 16 mg/dL Creatinine 0.97 mg/dL Estimated GFR () 76.2 BUN/Creatinine Ratio 16.0 Glucose Level 92 mg/dL Calcium Level 9.5 mg/dL Total Bilirubin 0.4 mg/dL Aspartate Amino Transf (AST/SGOT) 14 U/L Alanine Aminotransferase (ALT/SGPT) 11 U/L Alkaline Phosphatase 61 U/L Total Protein 7.6 g/dL Albumin 3.9 g/dL Globulin 3.7 Amylase Level 30 U/L Lipase 81 U/L Helicobacter pylori Screen NEGATIVE Sepsis Infection Criteria Pres: Suspected Infection O2 Sat by Pulse Oximetry: 98 Departure Time of Disposition: 20:06 Disposition: 01 HOME, SELF-CARE Impression: Primary Impression: Abdominal pain Additional Impression: Diarrhea Condition: Stable Patient Instructions: Abdominal Pain, Diarrhea Referrals: KEE FERNÁNDEZ MD (PCP) PRIMARY CARE PROVIDER Additional Instructions: return for any worsening symptoms, see your doctor for c diff toxin as you do not wish to wait for results in er today. Duration or Time Spent with Pa: 15 Problem Qualifiers MYNOR RAND MD Mar 28, 2019 20:09
[2019-03-28 20:15] VITALS: BP 122/72
== END 2019-03-28 20:18 | disposition home or self-care (01) ==
LOC: ER 16:32
DX: R10.9 Unspecified abdominal pain (principal); R19.7 Diarrhea, unspecified; F17.200 Nicotine dependence, unspecified, uncomplicated; F12.10 Cannabis abuse, uncomplicated; Z98.890 Other specified postprocedural states; Z88.0 Allergy status to penicillin; Z88.1 Allergy status to other antibiotic agents; Z88.2 Allergy status to sulfonamides; Z88.5 Allergy status to narcotic agent; Z88.6 Allergy status to analgesic agent; Z88.8 Allergy status to other drugs, medicaments and biological substances
CPT/HCPCS: 36415; 74176; 80053; 81000; 82150; 83690; 85025; 85610; 85730; 86677; 87086; 87230 ×2; 96372; 99285; J3010; Q0162

== ENCOUNTER 2019-04-02 17:03 | Emergency (ER) | payer OTHER ==
[~2019-04-02] VITALS: Ht 170.2 cm; Wt 86.2 kg
[2019-04-02 17:38] VITALS: BP 117/72
--- NOTE | 2019-04-02 17:43 | ER.PDOC ---
General Chief Complaint: Requesting Medical Care Stated Complaint: DIFFICULTY WALKING TRAVEL OUT OF US: No Time seen by MD: 17:42 Source: patient Exam Limitations: no limitations History of Present Illness Initial Comments Back pain, multiple falls since this morning, decreased sensation, decreased motor function. Timing/Duration: 24 hours Severity: severe Allergies: Coded Allergies: morphine (Verified Allergy, Severe, Shortness of Breath, 03/04/19) Penicillins (Verified Allergy, Unknown, Hives, 05/05/17) amoxicillin (Verified Allergy, Unknown, Anaphylaxis Shock, 03/17/18) ketorolac (Verified Allergy, Unknown, Swelling, 05/05/17) naproxen (Verified Allergy, Unknown, 05/05/17) pamabrom (Verified Allergy, Unknown, 05/05/17) sulfamethoxazole (Verified Allergy, Unknown, Hives, 05/05/17) tramadol (Verified Allergy, Unknown, Hives, 05/05/17) trimethoprim (Verified Allergy, Unknown, Hives, 05/05/17) Past Medical History Surgical History: back LMP (females 10-50): last week Social History Drug Use: marijuana Review of Systems Musculoskeletal: see HPI, back pain All Other Systems: Reviewed and Negative Physical Exam General Appearance: Anxious EENT: eyes nml inspection, nml ENT inspection, pharynx nml Neck: Non-Tender, Full Range of Motion, Supple, Normal Inspection Respiratory: chest non-tender, lungs clear, normal breath sounds CVS: reg rate & rhythm, no murmur, no gallop, pulses nml Gastrointestinal: Normal Bowel Sounds, No Organomegaly, No Pulsatile Mass, Non Tender Back: CVA Tenderness (L), Decreased Range Of Motion, Muscle Spasm Neurologic/Psychiatric: dock grader II-XII NML as Tested, Oriented x 3, Abnormal Gait, Motor Weakness (LLE) Skin: Normal Color Lymphatic: No Adenopathy Results/Orders Results/Orders Vital Signs Date Time Temp Pulse Resp B/P (MAP) Pulse Ox O2 Delivery O2 Flow Rate FiO2 04/02/19 17:56 98.3 93 16 117/72 (87) 99 Room Air 04/02/19 17:38 98.3 93 16 04/02/19 17:38 98.3 93 16 99 Room Air 03/28/19 20:15 74 Administered Medications Medications (Trade) Dose Ordered Sig/Bo Route PRN Reason Start Time Stop Time Status Last Admin Dose Admin Dexamethasone Sodium Phosphate (Decadron) 8 mg STAT STAT IM 04/02/19 17:57 04/02/19 18:02 DC 04/02/19 18:21 8 MG Nalbuphine HCl (Nubain) 10 mg STAT STAT IM 04/02/19 17:57 04/02/19 18:02 DC 04/02/19 18:22 10 MG Ondansetron HCl (Zofran Odt) 4 mg STAT STAT SL 04/02/19 18:27 04/02/19 18:28 DC 04/02/19 18:29 4 MG Orphenadrine Citrate (Norflex) 60 mg STAT STAT IM 04/02/19 17:57 04/02/19 18:02 DC 04/02/19 18:22 60 MG Progress Progress Care transferred to [facility] Course Sepsis Screening Results: Posi: POSITIVE SEPSIS RISK Duration or Total Time Spent w: 15 Vitals & review Data Vital Sign - Last 24 Hours 03/28/19 04/02/19 04/02/19 04/02/19 20:15 17:38 17:38 17:56 Temp 98.3 98.3 98.3 Pulse 74 93 93 93 Resp 16 16 16 B/P (MAP) 117/72 (87) Pulse Ox 99 99 O2 Delivery Room Air Room Air Sepsis Infection Criteria Pres: Suspected Infection Departure Time of Disposition: 19:41 Disposition: 02 XFER SHT-TRM HOSP Impression: 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 Urias compensation coordinator for Dr Mak. Patient will be transferred to [facility] ED for Dr. Chisholm. Duration or Time Spent with Pa: 60 mins Problem Qualifiers Primary Impression: Sciatic mononeuropathy Laterality: left Qualified Codes: G57.02 - Lesion of sciatic nerve, left lower limb MONA DALE MD Apr 02, 2019 17:43 TREVA BONILLA MD Apr 02, 2019 19:42
[2019-04-02 17:56] VITALS: BP 117/72
[2019-04-02] MEDS ORDERED: DECADRON ONE (18:06)
[2019-04-02] MEDS ORDERED: NORFLEX ONE (18:06)
[2019-04-02] MEDS ORDERED: NUBAIN ONE (18:07)
[2019-04-02] MEDS ORDERED: ZOFRAN ODT ONE (18:15)
[2019-04-02] MEDS: DECADRON IM STA (18:20)
[2019-04-02] MEDS: NORFLEX IM STA (18:21)
[2019-04-02] MEDS: NUBAIN IM STA (18:21)
--- NOTE | 2019-04-02 18:22 | NUR ---
CT PT TO CT SCAN VIA W/C IN STABLE CONDITION.
[2019-04-02] MEDS: ZOFRAN ODT SL STA (18:29)
[2019-04-02 18:45] VITALS: BP 129/81
--- NOTE | 2019-04-02 18:50 | DIREP ---
PROCEDURE: CT SPINE LUMBAR W/O TECHNIQUE:Axial cuts were obtained through the lumbar spine. The images were viewed at bone settings. COMPARISON:[facility], CR, XRAY SPINE LUMBAR 2-3 VWS, 02/18/2018, 01:36 PM. [facility], CR, XRAY SPINE LUMBAR 2-3 VWS, 08/27/2017, 06:42 PM. [facility], CR, XRAY SPINE LUMBAR 2-3 VWS, 03/04/2019, 01:54 PM. [facility], CT, CT SPINE LUMBAR W/O, 03/12/2018, 06:00 PM. INDICATIONS:Decreased feeling, pain, decreased motor function FINDINGS: ALIGNMENT:On the coronal images there is gentle dextroscoliosis of the lumbar spine. The angle of dextroscoliosis is 10.2� as measured from the superior cortex of T12 to the superior cortex of L5. VERTEBRAE:Suspect laminectomy especially on the left side at L5. No acute compression fractures are seen. Narrowing of the disc space with vertebral endplate sclerosis and vacuum phenomenon at L5-S1. Bulging annulus is identified in the lumbar spine. A small sclerotic density in L1 may represent a bone island or an osteoma. PARASPINAL AREA:Review of the paraspinal soft tissues, shows no aortic aneurysm or renal obstruction. Gallbladder appears to be surgically absent. OTHER:No additional findings. LUMBAR DISC LEVELS T11-T12: No focal disc. No foraminal or central stenosis. Mild facet and ligamenta flava hypertrophy noted. T12-L1:No focal disc. No foraminal or central stenosis. L1-L2:No focal disc. No foraminal or central stenosis. Mild facet and ligamenta flava hypertrophy noted. L2-L3:1-2 mm retrolisthesis of L2 on L3. Generalized disc bulge. Mild narrowing of intervertebral foramen and lateral recess narrowing seen. No focal disc is seen. Mild to moderate facet and ligamenta flava hypertrophy noted. L3-L4:Generalized disc bulge. Disc bulges asymmetric to the left. Lateral recess narrowing, left more than the right. No central stenosis. Moderate facet and ligamenta flava hypertrophy noted. L4-L5:Disc bulge asymmetric to the left. Narrowing of intervertebral foramen and lateral recesses with nerve root compression on the left side. No protrusion is seen. Mild central stenosis. Moderate facet and ligamenta flava hypertrophy noted. L5-S1:Previously noted focal disc may have been surgically resected. Left-sided laminectomy seen, possibly a laminectomy also on the right side. Generalized disc bulge. Narrowing of intervertebral foramen and lateral recesses with mild central stenosis. Mild to moderate facet and ligamenta flava hypertrophy noted. CONCLUSION:Suspect bilateral laminectomies at L5. Narrowing of the disc space with vertebral endplate sclerosis and vacuum phenomenon at L5-S1. Generalized disc bulge at L5-S1 with narrowing of intervertebral foramen and lateral recesses. Disc bulge asymmetric to the left at L3-4 as well as at L4-5. No focal protrusion, extrusion or herniations are seen. No vertebral compressions are seen. A gentle dextroscoliosis of the lumbar spine. Dictated by: Shivam Cedillo MD on 04/02/2019 at 06:41 PM
--- NOTE | 2019-04-02 19:04 | NUR ---
[facility] EDP ON PHONE WITH [facility] FOR POSSIBLE TRANSFER, THEY ARE ON CASE BY CASE ACCEPTANCE AND WILL CALL US BACK
--- NOTE | 2019-04-02 19:42 | NUR ---
TRANSFER PAPERWORK JASMINRN IN WITH PATIENT TO SIGN TRANSFER PAPERWORK
[2019-04-02 19:45] VITALS: BP 132/68
--- NOTE | 2019-04-02 20:30 | NUR ---
DISCHARGE ENTERED PATIENTS ROOM, PATIENT YELLING/CURSING, STATING IT HAS TAKEN LONG ENOUGH TO BE TRANSFERRED. ATTEMPTED TO GO OVER TRANSFER PAPERWORK WITH PATIENT, NO INTEREST, WANTED TO LEAVE. WHEELED PATIENT OUT OF ER.
== END 2019-04-02 20:30 | disposition short-term general hospital (02) ==
LOC: ER 17:03
DX: G54.4 Lumbosacral root disorders, not elsewhere classified (principal); G58.8 Other specified mononeuropathies; F12.90 Cannabis use, unspecified, uncomplicated; R29.6 Repeated falls; Z79.899 Other long term (current) drug therapy; Z88.0 Allergy status to penicillin; Z88.1 Allergy status to other antibiotic agents; Z88.2 Allergy status to sulfonamides; Z88.5 Allergy status to narcotic agent; Z88.6 Allergy status to analgesic agent; Z88.8 Allergy status to other drugs, medicaments and biological substances
CPT/HCPCS: 72131; 96372; 99285; J1100; J2300; J2360; Q0162

== ENCOUNTER 2019-05-09 12:48 | Inpatient (IN) | payer OTHER ==
[~2019-05-09] VITALS: Ht 170.2 cm; Wt 87.1 kg
[2019-05-09 12:55] VITALS: BP 125/63
[2019-05-09] MEDS ORDERED: ZOFRAN 4 MG/2 ML VIAL IV STA (13:08)
[2019-05-09] MEDS ORDERED: NS 1000ML 1,000 ML IV STA (13:08)
[2019-05-09] MEDS ORDERED: SUBLIMAZE IV STA (13:08)
[2019-05-09] MEDS ORDERED: SUBLIMAZE ONE (13:19)
[2019-05-09] MEDS ORDERED: ZOFRAN 4 MG/2 ML VIAL ONE (13:19)
[2019-05-09] MEDS ORDERED: NS 1000ML 1,000 ML ONE (13:19)
[2019-05-09 13:24] LABS: BASOPHIL % 0.4 % (0.0-0.2); EOSINOPHIL # 0.1 10^3/uL (0.0-0.2); EOSINOPHIL % 1.9 % (0.0-5.0); LYMPHOCYTES # 3.3 10^3/uL (1.0-4.8); LYMPHOCYTES % 43.4 % (24.0-44.0); MEAN CELL HGB 29.7 pg (26-34); MEAN CELL HGB CONCENTRATION 32.9 g/dL (33-37); MEAN CORP VOLUME 90.3 fL (78-100); MEAN PLATELET VOLUME 9.9 fL (7.8-11.0); MONOCYTES # 0.4 10^3/uL (0.3-0.8); MONOCYTES % 5.7 % (5.0-12.0); NEUTROPHIL # 3.7 10^3/uL (1.8-7.7); NEUTROPHILS % 48.5 % (41.0-85.0); WHITE BLOOD CELL 7.5 10^3/uL (4.5-11.0)
[2019-05-09 13:34] LABS: BILIRUBIN,URINE NEGATIVE (NEGATIVE); UROBILINOGEN,URINE NORMAL (NEGATIVE)
[2019-05-09 13:38] LABS: CALCIUM 9.1 mg/dL (8.4-10.5)
[2019-05-09 13:40] VITALS: BP 147/70
[2019-05-09 13:41] LABS: APPEARANCE,URINE HAZY (CLEAR); UA COLOR YELLOW (YELLOW)
--- NOTE | 2019-05-09 13:41 | ER.PDOC ---
General Chief Complaint: Abdomen Pain Stated Complaint: ABD PAIN Time seen by MD: 13:34 Source: patient Exam Limitations: no limitations History of Present Illness Initial Comments Abdominal pain for 2 days. Timing/Duration: 24 hours, constant Severity/Quality: moderate Radiation: no radiation Associated Symptoms: diarrhea, nausea/vomiting Exacerbated by: nothing Relieved By: nothing Allergies: Coded Allergies: morphine (Verified Allergy, Severe, Shortness of Breath, 03/04/19) Penicillins (Verified Allergy, Unknown, Hives, 05/05/17) amoxicillin (Verified Allergy, Unknown, Anaphylaxis Shock, 03/17/18) ketorolac (Verified Allergy, Unknown, Swelling, 05/05/17) naproxen (Verified Allergy, Unknown, 05/05/17) pamabrom (Verified Allergy, Unknown, 05/05/17) sulfamethoxazole (Verified Allergy, Unknown, Hives, 05/05/17) tramadol (Verified Allergy, Unknown, Hives, 05/05/17) trimethoprim (Verified Allergy, Unknown, Hives, 05/05/17) Vital Signs First Vital Signs Date Time Temp Pulse Resp B/P (MAP) Pulse Ox O2 Delivery O2 Flow Rate FiO2 05/09/19 12:55 98.0 91 20 96 Room Air 05/09/19 12:55 125/63 (83) Last Vital Signs Date Time Temp Pulse Resp B/P (MAP) Pulse Ox O2 Delivery O2 Flow Rate FiO2 05/09/19 14:48 70 18 127/91 (103) 100 Room Air 05/09/19 12:55 98.0 Past Medical History Medical History: other Surgical History: back, cholecystectomy Social History Smoking: less than 1 pack/day Alcohol Use: rarely Drug Use: marijuana Constitutional: no symptoms reported Respiratory: no symptoms reported Cardiovascular: no symptoms reported Gastrointestinal: see HPI Genitourinary: no symptoms reported All Other Systems: Reviewed and Negative Physical Exam General Appearance: No Apparent Distress, WD/WN Neck: Non-Tender, Full Range of Motion, Supple, Normal Inspection Respiratory: chest non-tender, lungs clear, normal breath sounds, no respiratory distress, no accessory muscle use Cardiovascular: Normal Peripheral Pulses, Regular Rate, Rhythm, No Edema, No Gallop, No JVD, No Murmur Gastrointestinal: Normal Bowel Sounds, No Organomegaly, No Pulsatile Mass, Guarding, Tenderness (lower abdomen) Back: Normal Inspection, No CVA Tenderness, No Vertebral Tenderness Extremities: Normal Range of Motion, Non-Tender, Normal Inspection, No Pedal Edema, No Calf Tenderness, Normal Capillary Refill, Pelvis Stable Neurologic/Psychiatric: deputy court II-XII NML as Tested, No Motor/Sensory Deficits, Alert, Normal Mood/Affect, Oriented x 3 Skin: Normal Color, Warm/Dry Results/Orders Results/Orders Orders - TREVA BONILLA MD Cbc With Auto Diff (05/09/19 13:08) Comprehensive Metabolic Panel (05/09/19 13:08) Lipase (05/09/19 13:08) PT (05/09/19 13:08) Ct Abd/Pel With Iv Contrast (05/09/19 13:08) Partial Thromboplastin Time. (05/09/19 13:08) Urinalysis (05/09/19 13:08) Hcg Qualitative Serum (05/09/19 13:08) 0.9 % Sodium Chloride (Ns 1000ml) (05/09/19 13:08) Ondansetron Hcl/Pf (Zofran 4 Mg/2 Ml Via (05/09/19 13:08) Fentanyl Citrate/Pf (Sublimaze) (05/09/19 13:08) 0.9 % Sodium Chloride (Ns 1000ml) (05/09/19 13:19) Ondansetron Hcl/Pf (Zofran 4 Mg/2 Ml Via (05/09/19 13:19) Fentanyl Citrate/Pf (Sublimaze) (05/09/19 13:19) Urine Culture (05/09/19 13:43) Vital Signs Date Time Temp Pulse Resp B/P (MAP) Pulse Ox O2 Delivery O2 Flow Rate FiO2 05/09/19 14:48 70 18 127/91 (103) 100 Room Air 05/09/19 13:40 83 17 147/70 (95) 95 Room Air 05/09/19 12:55 98.0 91 20 125/63 (83) 05/09/19 12:55 98.0 91 20 96 Room Air Administered Medications Medications (Trade) Dose Ordered Sig/Bo Route PRN Reason Start Time Stop Time Status Last Admin Dose Admin Fentanyl Citrate (Sublimaze) 100 mcg STAT STAT IV 05/09/19 13:08 05/09/19 13:13 DC 05/09/19 13:35 100 MCG Ondansetron HCl (Zofran 4 Mg/2 ml Vial) 4 mg STAT STAT IV 05/09/19 13:08 05/09/19 13:13 DC 05/09/19 13:35 4 MG Sodium Chloride 1,000 ml @ 1,200 mls/hr Q50M STAT IV 05/09/19 13:08 05/09/19 13:57 DC 05/09/19 13:35 1,200 MLS/HR Laboratory Tests Test 05/09/19 13:08 05/09/19 13:13 Urine Collection Type VOID Urine Color YELLOW (YELLOW) Urine Appearance HAZY (CLEAR) H Urine Bilirubin NEGATIVE MG/DL (NEGATIVE) Urine Ketones NEGATIVE (NEGATIVE) Urine Specific [place] 1.020 (1.005-1.035) Urine pH 5 (5.0-6.0) Urine Protein NEGATIVE (NEGATIVE) Urine Urobilinogen NORMAL (NEGATIVE) Urine Nitrate NEGATIVE (NEGATIVE) Urine Leukocyte Esterase 25 /uL TRACE (NEGATIVE) Urine Blood 150 3+ (NEGATIVE) H Urine RBC 10-25 RBC/HPF (NONE SEEN) H Urine WBC 0-2 WBC/HPF (0-2) Urine Squamous Epithelial Cells FEW #/HPF (FEW) Urine Bacteria FEW (NONE SEEN) H Urine Glucose NORMAL (NEGATIVE) White Blood Count 7.5 10^3/uL (4.5-11.0) Red Blood Count 4.72 10^6/uL (4.00-5.20) Hemoglobin 14.0 g/dL (12.0-15.0) Hematocrit 42.6 % (36.0-46.0) Mean Corpuscular Volume 90.3 fL (78-100) Mean Corpuscular Hemoglobin 29.7 pg (26-34) Mean Corpuscular Hemoglobin Concent 32.9 g/dL (33-37) L Red Cell Distribution Width 15.0 % (11.5-14.5) H Platelet Count 305 10^3/uL (150-400) Mean Platelet Volume 9.9 fL (7.8-11.0) Neutrophils (%) (Auto) 48.5 % (41.0-85.0) Lymphocytes (%) (Auto) 43.4 % (24.0-44.0) Monocytes (%) (Auto) 5.7 % (5.0-12.0) Neutrophils # (Auto) 3.7 10^3/uL (1.8-7.7) Lymphocytes # (Auto) 3.3 10^3/uL (1.0-4.8) Monocytes # (Auto) 0.4 10^3/uL (0.3-0.8) Absolute Immature Granulocyte (auto 0.01 10^3 u/L (0-2) Immature Granulocytes % 0.10 % (0.00-0.50) Eosinophils % 1.9 % (0.0-5.0) Basophils % 0.4 % (0.0-0.2) H Basophils # 0.0 10^3/uL (0.0-0.1) Eosinophil Count 0.1 10^3/uL (0.0-0.2) Prothrombin Time 10.0 SEC (9.4-11.5) Prothrombin Time INR (Non-Therap) 1.0 Activated Partial Thromboplast Time 24.7 SEC (24.67-30.72) Sodium Level 142 mmol/L (132-145) Potassium Level 3.7 mmol/L (3.6-5.2) Chloride Level 108.0 mmol/L (96-109) Carbon Dioxide Level 23.0 mmol/L (20.0-32) Anion Gap 14.7 Blood Urea Nitrogen 10 mg/dL (7-18) Creatinine 0.78 mg/dL (0.59-1.40) Estimated GFR () 98.0 (>/=60) BUN/Creatinine Ratio 12.0 Glucose Level 88 mg/dL (70-110) Calcium Level 9.1 mg/dL (8.4-10.5) Total Bilirubin 0.4 mg/dL (0.2-1.0) Aspartate Amino Transferase (AST) 12 U/L (0-35) Alanine Aminotransferase (ALT) 12 U/L (12-78) Alkaline Phosphatase 61 U/L (50-136) Total Protein 7.2 g/dL (6.4-8.2) Albumin 3.6 g/dL (3.4-5.0) Globulin 3.6 Lipase 984 U/L (114-286) H Serum HCG, Qualitative NEGATIVE (NEGATIVE) EKG/XRAY/CT/US CT Comments: No acute abnormality on CT abdomen/pelvis Course Sepsis Screening Results: Posi: POSITIVE SEPSIS RISK Duration or Total Time Spent w: 60 mins Vitals & review Data Vital Sign - Last 24 Hours 05/09/19 05/09/19 05/09/19 05/09/19 12:55 12:55 13:40 14:48 Temp 98.0 98.0 Pulse 91 91 83 70 Resp 20 20 17 18 B/P (MAP) 125/63 (83) 147/70 (95) 127/91 (103) Pulse Ox 96 95 100 O2 Delivery Room Air Room Air Room Air Laboratory Tests Test 05/09/19 13:08 05/09/19 13:13 Urine Collection Type VOID Urine Color YELLOW Urine Appearance HAZY Urine Bilirubin NEGATIVE MG/DL Urine Ketones NEGATIVE Urine Specific [place] 1.020 Urine pH 5 Urine Protein NEGATIVE Urine Urobilinogen NORMAL Urine Nitrate NEGATIVE Urine Leukocyte Esterase 25 /uL TRACE Urine Blood 150 3+ Urine RBC 10-25 RBC/HPF Urine WBC 0-2 WBC/HPF Urine Squamous Epithelial Cells FEW #/HPF Urine Bacteria FEW Urine Glucose NORMAL White Blood Count 7.5 10^3/uL Red Blood Count 4.72 10^6/uL Hemoglobin 14.0 g/dL Hematocrit 42.6 % Mean Corpuscular Volume 90.3 fL Mean Corpuscular Hemoglobin 29.7 pg Mean Corpuscular Hemoglobin Concent 32.9 g/dL Red Cell Distribution Width 15.0 % Platelet Count 305 10^3/uL Mean Platelet Volume 9.9 fL Neutrophils (%) (Auto) 48.5 % Lymphocytes (%) (Auto) 43.4 % Monocytes (%) (Auto) 5.7 % Neutrophils # (Auto) 3.7 10^3/uL Lymphocytes # (Auto) 3.3 10^3/uL Monocytes # (Auto) 0.4 10^3/uL Absolute Immature Granulocyte (auto 0.01 10^3 u/L Immature Granulocytes % 0.10 % Eosinophils % 1.9 % Basophils % 0.4 % Basophils # 0.0 10^3/uL Eosinophil Count 0.1 10^3/uL Prothrombin Time 10.0 SEC Prothrombin Time INR (Non-Therap) 1.0 Activated Partial Thromboplast Time 24.7 SEC Sodium Level 142 mmol/L Potassium Level 3.7 mmol/L Chloride Level 108.0 mmol/L Carbon Dioxide Level 23.0 mmol/L Anion Gap 14.7 Blood Urea Nitrogen 10 mg/dL Creatinine 0.78 mg/dL Estimated GFR () 98.0 BUN/Creatinine Ratio 12.0 Glucose Level 88 mg/dL Calcium Level 9.1 mg/dL Total Bilirubin 0.4 mg/dL Aspartate Amino Transf (AST/SGOT) 12 U/L Alanine Aminotransferase (ALT/SGPT) 12 U/L Alkaline Phosphatase 61 U/L Total Protein 7.2 g/dL Albumin 3.6 g/dL Globulin 3.6 Lipase 984 U/L Serum HCG, Qualitative NEGATIVE Sepsis Infection Criteria Pres: None O2 Sat by Pulse Oximetry: 96 Departure Time of Disposition: 15:49 Disposition: 09 ADMITTED INPATIENT Impression: Primary Impression: Acute pancreatitis Condition: Stable Referrals: KEE FERNÁNDEZ MD (PCP) PRIMARY CARE PROVIDER Comments Admitted to Dr. Miller Duration or Time Spent with Pa: 60 mins Problem Qualifiers Primary Impression: Acute pancreatitis Pancreatitis type: unspecified pancreatitis type Acute pancreatitis complication: unspecified Qualified Codes: K85.90 - Acute pancreatitis without necrosis or infection, unspecified TREVA BONILLA MD May 09, 2019 13:41
--- NOTE | 2019-05-09 14:26 | NUR ---
UPDATE PATIENT REPORTS PAIN OF 9/10 TO RLQ. EDP NOTIFIED. NO NEW ORDERS RECEIVED
[2019-05-09 14:48] VITALS: BP 127/91
--- NOTE | 2019-05-09 15:04 | DIREP ---
PROCEDURE:CT ABDOMEN/PELVIS W/ CONTRAST COMPARISON:[facility], CT, CT ABD/PELVIS W/O, 03/28/2019, 06:14 PM. INDICATIONS:Lower abdominal pain TECHNIQUE:Axial images were created through the abdomen and pelvis with non-ionic intravenous contrast material. No oral contrast was administered. Sagittal and coronal reconstructions were performed from source images. FINDINGS: LUNG BASES:Normal. No visible pulmonary or pleural disease. LIVER:Normal. No significant liver lesions are identified. BILIARY:The gallbladder is surgically absent. There is no biliary ductal dilatation. PANCREAS:Normal. No lesion, fluid collection, ductal dilatation, or atrophy. SPLEEN:Normal. No enlargement or focal lesion. ADRENALS:Normal. No mass or enlargement. URINARY TRACT:Normal. No urinary calculi. No focal lesions or hydronephrosis. AORTA/VASCULAR:Normal. No aneurysm. RETROPERITONEUM:Normal. No mass or adenopathy. BOWEL/MESENTERY:The appendix is visualized and appears normal. There is no intestinal obstruction, free fluid, free air or mesenteric inflammatory changes. ABDOMINAL WALL:Normal. No mass or hernia. PELVIC ORGANS:Normal. No visible mass. Pelvic organs appropriate for patient age. BONES:DDD at L5-S1. OTHER:Negative. CONCLUSION: 1. No acute abdomen/pelvis abnormalities. No significant change since the prior examination. 2. Prior cholecystectomy. Dictated by: Ayush Champagne M.D. on 05/09/2019 at 02:57 PM
[2019-05-09] MEDS ORDERED: DILAUDID IV STA (15:52)
[2019-05-09] MEDS ORDERED: PHENERGAN IV STA (15:52)
[2019-05-09] MEDS ORDERED: ROCEPHIN 1 GM in NS 100ML 100 ML IV STA (15:52)
[2019-05-09] MEDS ORDERED: D5W-1/2 NS/KCL 20MEQ 1,000 ML IV STA (15:52)
[2019-05-09] MEDS ORDERED: D5W-1/2NS 1000ML 1,000 ML ONE (16:40)
[2019-05-09] MEDS ORDERED: NS 25ML 25 ML IV ONE (16:41)
[2019-05-09] MEDS ORDERED: ROCEPHIN ONE (16:41)
[2019-05-09] MEDS ORDERED: PHENERGAN ONE (16:41)
[2019-05-09] MEDS ORDERED: NS 100ML 100 ML IV ONE (16:42)
[2019-05-09] MEDS ORDERED: DILAUDID ONE (16:42)
--- NOTE | 2019-05-09 17:04 | NUR ---
meds given see emar
[2019-05-09 17:30] VITALS: BP 140/91
[2019-05-09] MEDS ORDERED: OXYC-323 PO (18:06)
[2019-05-09] MEDS ORDERED: CLON1TAB11 PO (18:06)
[2019-05-09] MEDS ORDERED: TIZA4TAB9 PO (18:06)
[2019-05-09] MEDS ORDERED: ONDA4TAB13 PO (18:06)
[2019-05-09] MEDS ORDERED: OMEP40CA41 PO (18:06)
[2019-05-09] MEDS ORDERED: ALBU6.7H8 IH (18:06)
[2019-05-09] MEDS ORDERED: ROCEPHIN 1 GM in NS 100ML 100 ML IV SCH (18:30)
[2019-05-09] MEDS ORDERED: PHENERGAN 12.5 MG in NS 25ML 25 ML IV PRN (18:30)
[2019-05-09] MEDS ORDERED: ATIVAN IV PRN (18:30)
[2019-05-09] MEDS ORDERED: ZOFRAN 4 MG/2 ML VIAL IV PRN (18:30)
[2019-05-09] MEDS ORDERED: PROTONIX IV IV STA (18:34)
--- NOTE | 2019-05-09 18:34 | PCM.HP ---
History of Present Illness Reason for Visit: Adominal pain, nausea x 2 days History of Present Illness Patient is a 43 F PMH of Chronic back pain, Anxiety, Gastroparesis, and asthma/copd presents with abdominal pain x 2 days. In ER, patient had CT scan that was negative but labs showed elevated lipase consistent with Pancreatitis. Patient notes pain is severe and worse with eating but she is requesting food. Patient was climbing around on the bed looking for phone hospice care consultant when I entered room but complaints that pain and nausea continue to be excruciating. Patient was made NPO and started on IVF. Patient denies fever, chills, chest pain, shortness of breath, or any other concerning symptoms. I discussed plan of care with patient and she verbalizes understanding/agreement. Patient is very frustrated with me and feels I am refusing for her food. She wants sleep medication that is PO and I informed patient that is not safe with Pancreatitis. Past Medical History Pulmonary: Asthma, COPD GI: Other (Gastroparesis) Psychiatric: Anxiety Musculoskeletal: Chronic Low Back Pain Past Surgical History: Cholecystectomy, Other (Left ankle surgery x 2, 2 back surgeries, Laparotomy x 4) Past Social History Smoke: <1 pack per day Alcohol: rare Drugs: Marijuana Lives: with Family Travel Hx EBOLA RISK:Travel to/contact w: No Is pt experiencing any Ebola s: No Review of Systems Constitutional: No: Fever, Chills Eyes: No: Conjunctivae inflammation, Eyelid inflammation ENT: No: Nose discharge, Nose congestion Respiratory: Cough; No: Shortness of breath, SOB with excertion, Wheezing Cardiovascular: No: Chest Pain, Palpitations, Edema Gastrointestinal: Nausea, Abdominal Pain; No: Diarrhea Genitourinary: No Incontinence, No Retention Musculoskeletal: back pain; No: neck pain Skin: No: Rash, Lesions, Jaundice, Bruising Neurological: No: Weakness, Numbness, Incoordination, Change in speech, Confusion, Seizures Allergies: Coded Allergies: morphine (Verified Allergy, Severe, Shortness of Breath, 03/04/19) Penicillins (Verified Allergy, Unknown, Hives, 05/05/17) amoxicillin (Verified Allergy, Unknown, Anaphylaxis Shock, 03/17/18) ketorolac (Verified Allergy, Unknown, Swelling, 05/05/17) naproxen (Verified Allergy, Unknown, 05/05/17) pamabrom (Verified Allergy, Unknown, 05/05/17) sulfamethoxazole (Verified Allergy, Unknown, Hives, 05/05/17) tramadol (Verified Allergy, Unknown, Hives, 05/05/17) trimethoprim (Verified Allergy, Unknown, Hives, 05/05/17) Scheduled Albuterol Sulfate (Proventil Hfa), 2 PUFF IH Q4HR, (Reported) Clonazepam (Clonazepam), 1 TAB PO TID, (Reported) Omeprazole (Omeprazole), 40 MG PO BID, (Reported) Scheduled PRN Ondansetron (Ondansetron Odt), 4 MG PO Q4 PRN for Nausea, (Reported) Oxycodone Hcl/Acetaminophen (Percocet 10-325 Mg Tablet), 1 TAB PO BID PRN for PAIN, (Reported) Tizanidine Hcl (Zanaflex), 1 TAB PO TID PRN for BACK PAIN, (Reported) VTE VTE Risk Total Score: 1 VTE Risk Score VTE Risk: Score 0-1 = Low Risk (Aggressive mobilization; early ambulation; no VTE prophylaxis required) Score 2: Moderate Risk (Intermittent/Pneumatic Compression Device OR Lovenox/Heparin/Coumadin) Score 3-4: High Risk (Intermittent/Pneumatic Compression Device AND Lovenox/Heparin/Coumadin) Score > or =5: Highest Risk (Intermittent/Pneumatic Compression Device AND Lovenox/Heparin/Coumadin) VTE VTE Present on Admission: No Currently receiving anticoagul: No VTE Risk Total Score: 1 Exam Vital Signs Vital Signs Date Time Temp Pulse Resp B/P (MAP) Pulse Ox O2 Delivery O2 Flow Rate FiO2 05/09/19 17:30 97.7 71 18 140/91 (107) 97 Room Air General Appearance: Alert, Oriented X3, No acute distress HEENT: Atraumatic, PERRLA, EOMI, Mucous membr. moist/pink Respiratory: Clear to auscultation, Normal air movement Cardiovascular: Regular rate, Normal S1, Normal S2, No murmurs Abdominal: Normal bowel sounds, Soft, Other (tender to palpation of epigastric abdominal area) Extremities: No edema, Normal pulses, No tenderness/swelling Skin: No rash, No breakdown, No lesions Neuro: Normal speech, Strength at 5/5 X4 ext, Normal tone, Sensation intact, Cranial nerves 3-12 NL Psych/Mental Status: Mental status NL, Mood NL Assessment/Plan Assessment/Plan Assessment/Plan Patient is a 43 F PMH of Chronic back pain, Anxiety, Gastroparesis, and asthma/copd presents with abdominal pain x 2 days. Patient History: Patient reports no known family medical history. Plan 1. Acute Pancreatitis: NPO, cont IVF. Cont pain control and IV antiemetics. Will repeat lab work in AM. CT reviewed and negative for acute pathology. 2. UTI: cont IV abx, urine culture pending. 3. Chronic Back Pain: will restart home medications when Pancreatic inflam mation has resolved. Patient is very upset we will not give her home dosing of Clonipin and Oxycontin. I informed that this was not safe while she has acute pancreatitis. 4. Anxiety: PRN Ativan, restart home medications when pancreatitis resolves. 5. COPD/Asthma: nebs, O2 support PRN. 6. PPx: PPI SIENNA MESSINA MD May 09, 2019 18:34
[2019-05-09] MEDS: DUONEB 0.5 MG-3 MG/3 ML SOLN IH PRN (18:40)
[2019-05-09] MEDS: NS 1000ML/KCL 20MEQ 1,000 ML IV SCH (19:59)
[2019-05-09] MEDS: DILAUDID IV PRN (21:35)
[2019-05-09] MEDS: NICOTINE 21MG PATCH TD SCH (22:10)
[2019-05-09 23:55] VITALS: BP 84/51
[2019-05-10] MEDS: NS 1000ML/KCL 20MEQ 1,000 ML IV SCH ×3 (00:34→18:30)
[2019-05-10 00:43] VITALS: BP 96/62
[2019-05-10 01:39] VITALS: BP 107/61
[2019-05-10] MEDS: DILAUDID IV PRN (03:43)
[2019-05-10 03:54] VITALS: BP 101/63
[2019-05-10] MEDS: DUONEB 0.5 MG-3 MG/3 ML SOLN IH PRN ×3 (04:02→19:57)
[2019-05-10 05:16] LABS: BASOPHIL % 0.2 % (0.0-0.2); EOSINOPHIL # 0.1 10^3/uL (0.0-0.2); EOSINOPHIL % 1.8 % (0.0-5.0); LYMPHOCYTES # 2.9 10^3/uL (1.0-4.8); LYMPHOCYTES % 51.3 % (24.0-44.0); MEAN CELL HGB 29.3 pg (26-34); MEAN CELL HGB CONCENTRATION 31.6 g/dL (33-37); MEAN CORP VOLUME 92.7 fL (78-100); MEAN PLATELET VOLUME 9.8 fL (7.8-11.0); MONOCYTES # 0.4 10^3/uL (0.3-0.8); NEUTROPHIL # 2.2 10^3/uL (1.8-7.7); NEUTROPHILS % 39.7 % (41.0-85.0); RED CELL DISTRIBUTION WIDTH 15.1 % (11.5-14.5); WHITE BLOOD CELL 5.6 10^3/uL (4.5-11.0)
[2019-05-10 05:30] LABS: CALCIUM 7.9 mg/dL (8.4-10.5); CARBON DIOXIDE 25.1 mmol/L (20.0-32)
[2019-05-10 08:00] VITALS: BP 100/53
--- NOTE | 2019-05-10 08:09 | PRM.PN ---
Subjective Subjective Date: May 10, 2019 Time: 07:45 Subjective Patient labs returned and lipase returned to normal. I discussed with patient/RN. We have d/c IV medications and started home medications. Patient remains upset but is happier with us starting PO meds. Patient History: Patient reports no known family medical history. VTE VTE Risk Total Score: 1 VTE Risk Score VTE Risk: Score 0-1 = Low Risk (Aggressive mobilization; early ambulation; no VTE prophylaxis required) Score 2: Moderate Risk (Intermittent/Pneumatic Compression Device OR Lovenox/Heparin/Coumadin) Score 3-4: High Risk (Intermittent/Pneumatic Compression Device AND Lovenox/Heparin/Coumadin) Score > or =5: Highest Risk (Intermittent/Pneumatic Compression Device AND Lovenox/Heparin/Coumadin) Review of Systems Allergies: Coded Allergies: morphine (Verified Allergy, Severe, Shortness of Breath, 03/04/19) Penicillins (Verified Allergy, Unknown, Hives, 05/05/17) amoxicillin (Verified Allergy, Unknown, Anaphylaxis Shock, 03/17/18) ketorolac (Verified Allergy, Unknown, Swelling, 05/05/17) naproxen (Verified Allergy, Unknown, 05/05/17) pamabrom (Verified Allergy, Unknown, 05/05/17) sulfamethoxazole (Verified Allergy, Unknown, Hives, 05/05/17) tramadol (Verified Allergy, Unknown, Hives, 05/05/17) trimethoprim (Verified Allergy, Unknown, Hives, 05/05/17) Scheduled Albuterol Sulfate (Proventil Hfa), 2 PUFF IH Q4HR, (Reported) Clonazepam (Clonazepam), 1 TAB PO TID, (Reported) Omeprazole (Omeprazole), 40 MG PO BID, (Reported) Scheduled PRN Ondansetron (Ondansetron Odt), 4 MG PO Q4 PRN for Nausea, (Reported) Oxycodone Hcl/Acetaminophen (Percocet 10-325 Mg Tablet), 1 TAB PO BID PRN for PAIN, (Reported) Tizanidine Hcl (Zanaflex), 1 TAB PO TID PRN for BACK PAIN, (Reported) Objective Vitals and I/O Vital Sign - Last 24 Hours 05/09/19 05/09/19 05/09/19 05/09/19 12:55 12:55 13:40 14:48 Temp 98.0 98.0 Pulse 91 91 83 70 Resp 20 20 17 18 B/P (MAP) 125/63 (83) 147/70 (95) 127/91 (103) Pulse Ox 96 95 100 O2 Delivery Room Air Room Air Room Air 05/09/19 05/09/19 05/09/19 05/09/19 17:30 18:40 18:41 18:43 Temp 97.7 Pulse 71 59 58 Resp 18 16 16 18 B/P (MAP) 140/91 (107) Pulse Ox 97 97 97 97 O2 Delivery Room Air 05/09/19 05/09/19 05/09/19 05/10/19 18:50 23:05 23:55 00:43 Temp 97.9 Pulse 69 Resp 18 B/P (MAP) 84/51 (62) 96/62 (73) Pulse Ox 97 O2 Delivery Room Air Room Air Room Air 05/10/19 05/10/19 05/10/19 05/10/19 01:39 03:54 04:01 04:10 Temp 98.1 Pulse 71 83 83 Resp 18 15 15 B/P (MAP) 107/61 (76) 101/63 (76) Pulse Ox 100 96 96 O2 Delivery Room Air Intake and Output 05/09/19 05/09/19 05/10/19 15:00 23:00 07:00 Intake Total 1000 ml Balance 1000 ml General: Alert, Oriented X3, No acute distress HEENT: Atraumatic, PERRLA, EOMI, Mucous membr. moist/pink Neck: Supple, No JVD Lungs: Clear to auscultation, Normal air movement Heart: Regular rate, Normal S1, Normal S2, No murmurs Abdomen: Normal bowel sounds, Soft, No tenderness Extremities: No edema, Normal pulses, No tenderness/swelling Skin: No rashes, No breakdown, No significant lesion Neuro: Normal speech, Strength at 5/5 X4 ext, Normal tone, Sensation intact, Cranial nerves 3-12 NL Psych/Mental Status: Mental status NL, Mood NL All Results(Lab/Rad) Laboratory Tests Test 05/09/19 13:08 05/09/19 13:13 05/10/19 04:59 Urine Collection Type VOID Urine Color YELLOW Urine Appearance HAZY Urine Bilirubin NEGATIVE MG/DL Urine Ketones NEGATIVE Urine Specific [place] 1.020 Urine pH 5 Urine Protein NEGATIVE Urine Urobilinogen NORMAL Urine Nitrate NEGATIVE Urine Leukocyte Esterase 25 /uL TRACE Urine Blood 150 3+ Urine RBC 10-25 RBC/HPF Urine WBC 0-2 WBC/HPF Urine Squamous Epithelial Cells FEW #/HPF Urine Bacteria FEW Urine Glucose NORMAL White Blood Count 7.5 10^3/uL 5.6 10^3/uL Red Blood Count 4.72 10^6/uL 4.10 10^6/uL Hemoglobin 14.0 g/dL 12.0 g/dL Hematocrit 42.6 % 38.0 % Mean Corpuscular Volume 90.3 fL 92.7 fL Mean Corpuscular Hemoglobin 29.7 pg 29.3 pg Mean Corpuscular Hemoglobin Concent 32.9 g/dL 31.6 g/dL Red Cell Distribution Width 15.0 % 15.1 % Platelet Count 305 10^3/uL 254 10^3/uL Mean Platelet Volume 9.9 fL 9.8 fL Neutrophils (%) (Auto) 48.5 % 39.7 % Lymphocytes (%) (Auto) 43.4 % 51.3 % Monocytes (%) (Auto) 5.7 % 7.0 % Neutrophils # (Auto) 3.7 10^3/uL 2.2 10^3/uL Lymphocytes # (Auto) 3.3 10^3/uL 2.9 10^3/uL Monocytes # (Auto) 0.4 10^3/uL 0.4 10^3/uL Absolute Immature Granulocyte (auto 0.01 10^3 u/L 0 10^3 u/L Immature Granulocytes % 0.10 % 0.00 % Eosinophils % 1.9 % 1.8 % Basophils % 0.4 % 0.2 % Basophils # 0.0 10^3/uL 0.0 10^3/uL Eosinophil Count 0.1 10^3/uL 0.1 10^3/uL Prothrombin Time 10.0 SEC Prothrombin Time INR (Non-Therap) 1.0 Activated Partial Thromboplast Time 24.7 SEC Sodium Level 142 mmol/L 144 mmol/L Potassium Level 3.7 mmol/L 3.4 mmol/L Chloride Level 108.0 mmol/L 111.0 mmol/L Carbon Dioxide Level 23.0 mmol/L 25.1 mmol/L Anion Gap 14.7 11.3 Blood Urea Nitrogen 10 mg/dL 9 mg/dL Creatinine 0.78 mg/dL 0.73 mg/dL Estimated GFR () 98.0 105.8 BUN/Creatinine Ratio 12.0 12.0 Glucose Level 88 mg/dL 89 mg/dL Calcium Level 9.1 mg/dL 7.9 mg/dL Total Bilirubin 0.4 mg/dL 0.3 mg/dL Aspartate Amino Transf (AST/SGOT) 12 U/L 9 U/L Alanine Aminotransferase (ALT/SGPT) 12 U/L 10 U/L Alkaline Phosphatase 61 U/L 54 U/L Total Protein 7.2 g/dL 5.7 g/dL Albumin 3.6 g/dL 2.8 g/dL Globulin 3.6 2.9 Lipase 984 U/L 79 U/L Serum HCG, Qualitative NEGATIVE Current Medications Medications (Trade) Dose Ordered Sig/Bo Route PRN Reason Start Time Stop Time Status Last Admin Dose Admin Sodium Chloride 1,000 ml @ 1,200 mls/hr Q50M STAT IV 05/09/19 13:08 05/09/19 13:57 DC 05/09/19 13:35 Ondansetron HCl (Zofran 4 Mg/2 ml Vial) 4 mg STAT STAT IV 05/09/19 13:08 05/09/19 13:13 DC 05/09/19 13:35 Fentanyl Citrate (Sublimaze) 100 mcg STAT STAT IV 05/09/19 13:08 05/09/19 13:13 DC 05/09/19 13:35 Sodium Chloride 1,000 ml @ ud STK-MED ONCE .ROUTE 05/09/19 13:19 05/09/19 13:21 DC Ondansetron HCl (Zofran 4 Mg/2 ml Vial) 4 mg STK-MED ONCE .ROUTE 05/09/19 13:19 05/09/19 13:21 DC Fentanyl Citrate (Sublimaze) 100 mcg STK-MED ONCE .ROUTE 05/09/19 13:19 05/09/19 13:22 DC Ceftriaxone Sodium 1 gm/ Sodium Chloride 100 ml @ 100 mls/hr DAILY STAT IV 05/09/19 15:52 05/09/19 16:51 DC 05/09/19 16:50 Potassium Chloride/Dextrose/ Sod Cl 1,000 ml @ 100 mls/hr Q10H STAT IV 05/09/19 15:52 05/09/19 19:31 DC 05/09/19 15:52 Hydromorphone HCl (Dilaudid) 1 mg STAT STAT IV 05/09/19 15:52 05/09/19 15:58 DC 05/09/19 16:55 Hydromorphone HCl (Dilaudid) 1 mg Q4H PRN IV PAIN 7 - 10 05/09/19 16:00 05/10/19 07:57 DC 05/10/19 03:43 Promethazine HCl (Phenergan) 25 mg STAT STAT IV 05/09/19 15:52 05/09/19 15:58 DC 05/09/19 16:52 Sodium Chloride 25 ml @ ud STK-MED ONCE IV 05/09/19 16:41 05/09/19 16:43 DC Ceftriaxone Sodium (Rocephin) 1 gm STK-MED ONCE .ROUTE 05/09/19 16:41 05/09/19 16:43 DC Promethazine HCl (Phenergan) 25 mg STK-MED ONCE .ROUTE 05/09/19 16:41 05/09/19 16:43 DC Hydromorphone HCl (Dilaudid) 2 mg STK-MED ONCE .ROUTE 05/09/19 16:42 05/09/19 16:44 DC Sodium Chloride 100 ml @ ud STK-MED ONCE IV 05/09/19 16:42 05/09/19 16:44 DC Lorazepam (Ativan) 1 mg Q4HR PRN IV AGITATION 05/09/19 18:30 05/10/19 07:57 DC 05/09/19 19:24 Ceftriaxone Sodium 1 gm/ Sodium Chloride 100 ml @ 100 mls/hr Q24HRS IV 05/09/19 18:30 05/09/19 18:11 DC Ceftriaxone Sodium 1 gm/ Sodium Chloride 100 ml @ 100 mls/hr Q24HRS IV 05/10/19 12:00 06/09/19 11:59 Ondansetron HCl (Zofran 4 Mg/2 ml Vial) 4 mg Q4H PRN IV NAUSEA / VOMITING 05/09/19 18:30 06/08/19 18:29 05/10/19 03:43 Potassium Chloride/Sodium Chloride 1,000 ml @ 125 mls/hr Q8H IV 05/09/19 18:30 06/08/19 18:29 05/10/19 00:34 Promethazine HCl 12.5 mg/Sodium Chloride 25.5 ml @ 150 mls/hr Q6H PRN IV NAUSEA / VOMITING 05/09/19 18:30 06/08/19 18:29 Albuterol/ Ipratropium (Duoneb 0.5 Mg-3 Mg/3 ml Soln) 3 ml Q4HR PRN IH WHEEZING 05/09/19 18:30 06/08/19 18:29 05/10/19 04:02 Pantoprazole Sodium (Protonix Iv) 40 mg STAT STAT IV 05/09/19 18:34 05/09/19 19:24 DC 05/09/19 19:24 Pantoprazole Sodium (Protonix Iv) 40 mg DAILY IV 05/10/19 09:00 06/09/19 08:59 Nicotine (Nicotine 21mg Patch) 1 each DAILY TD 05/10/19 09:00 06/09/19 08:59 05/09/19 22:10 Course Sepsis Screening Results: Posi: NEGATIVE Sepsis Qualifier/Stage: NO DEFINITE RISK Duration or Total Time Spent w: 60 mins Vitals & review Data Vital Sign - Last 24 Hours 05/09/19 05/09/19 05/09/19 05/09/19 12:55 12:55 13:40 14:48 Temp 98.0 98.0 Pulse 91 91 83 70 Resp 20 20 17 18 B/P (MAP) 125/63 (83) 147/70 (95) 127/91 (103) Pulse Ox 96 95 100 O2 Delivery Room Air Room Air Room Air Laboratory Tests Test 05/09/19 13:08 05/09/19 13:13 Urine Collection Type VOID Urine Color YELLOW Urine Appearance HAZY Urine Bilirubin NEGATIVE MG/DL Urine Ketones NEGATIVE Urine Specific [place] 1.020 Urine pH 5 Urine Protein NEGATIVE Urine Urobilinogen NORMAL Urine Nitrate NEGATIVE Urine Leukocyte Esterase 25 /uL TRACE Urine Blood 150 3+ Urine RBC 10-25 RBC/HPF Urine WBC 0-2 WBC/HPF Urine Squamous Epithelial Cells FEW #/HPF Urine Bacteria FEW Urine Glucose NORMAL White Blood Count 7.5 10^3/uL Red Blood Count 4.72 10^6/uL Hemoglobin 14.0 g/dL Hematocrit 42.6 % Mean Corpuscular Volume 90.3 fL Mean Corpuscular Hemoglobin 29.7 pg Mean Corpuscular Hemoglobin Concent 32.9 g/dL Red Cell Distribution Width 15.0 % Platelet Count 305 10^3/uL Mean Platelet Volume 9.9 fL Neutrophils (%) (Auto) 48.5 % Lymphocytes (%) (Auto) 43.4 % Monocytes (%) (Auto) 5.7 % Neutrophils # (Auto) 3.7 10^3/uL Lymphocytes # (Auto) 3.3 10^3/uL Monocytes # (Auto) 0.4 10^3/uL Absolute Immature Granulocyte (auto 0.01 10^3 u/L Immature Granulocytes % 0.10 % Eosinophils % 1.9 % Basophils % 0.4 % Basophils # 0.0 10^3/uL Eosinophil Count 0.1 10^3/uL Prothrombin Time 10.0 SEC Prothrombin Time INR (Non-Therap) 1.0 Activated Partial Thromboplast Time 24.7 SEC Sodium Level 142 mmol/L Potassium Level 3.7 mmol/L Chloride Level 108.0 mmol/L Carbon Dioxide Level 23.0 mmol/L Anion Gap 14.7 Blood Urea Nitrogen 10 mg/dL Creatinine 0.78 mg/dL Estimated GFR () 98.0 BUN/Creatinine Ratio 12.0 Glucose Level 88 mg/dL Calcium Level 9.1 mg/dL Total Bilirubin 0.4 mg/dL Aspartate Amino Transf (AST/SGOT) 12 U/L Alanine Aminotransferase (ALT/SGPT) 12 U/L Alkaline Phosphatase 61 U/L Total Protein 7.2 g/dL Albumin 3.6 g/dL Globulin 3.6 Lipase 984 U/L Serum HCG, Qualitative NEGATIVE Sepsis Infection Criteria Pres: Documented Infection LEVEL 1 SEPSIS INFECTION CRITE: ABX Therapy O2 Sat by Pulse Oximetry: 96 Assessment/Plan Assessment/Plan Assessment/Plan 1. Acute Pancreatitis: Lipase returned to normal. D/C IV medications and start home meds per patient request. She wants her Oxy and Clonipin and upset we withheld. Start CLD and advance as tolerated. 2. UTI: cont IV abx, urine culture pending. 3. Chronic Back Pain: start home medications. 4. Anxiety: restart home meds. 5. COPD/Asthma: nebs, O2 support PRN. 6. PPx: PPI 7. Hypokalemia: cont IVF to replete. SIENNA MESSINA MD May 10, 2019 08:09
[2019-05-10] MEDS ORDERED: PROTONIX IV IV SCH (09:00)
[2019-05-10] MEDS: NICOTINE 21MG PATCH TD SCH ×2 (10:13→15:29)
[2019-05-10] MEDS: KLONOPIN PO SCH ×3 (10:21→21:24)
[2019-05-10] MEDS: OXY-IR PO PRN ×2 (10:33→21:24)
[2019-05-10] MEDS: TYLENOL PO PRN (10:33)
[2019-05-10] MEDS ORDERED: BENADRYL PO PRN (10:45)
[2019-05-10] MEDS ORDERED: ROCEPHIN 1 GM in NS 100ML 100 ML IV SCH (12:00)
[2019-05-10] MEDS ORDERED: NICOTINE 21MG PATCH TD ONE (15:24)
[2019-05-10 16:40] VITALS: BP 121/78
[2019-05-10] MEDS: ZANAFLEX PO PRN (19:23)
[2019-05-10 22:12] VITALS: BP 121/77
[2019-05-11] MEDS: NS 1000ML/KCL 20MEQ 1,000 ML IV SCH ×2 (02:30→10:30)
[2019-05-11] MEDS: ZANAFLEX PO PRN (04:22)
[2019-05-11 04:44] VITALS: BP 103/70
[2019-05-11 05:36] LABS: BASOPHIL % 0.4 % (0.0-0.2); EOSINOPHIL # 0.1 10^3/uL (0.0-0.2); EOSINOPHIL % 2.3 % (0.0-5.0); HEMOGLOBIN 11.8 g/dL (12.0-15.0); LYMPHOCYTES # 2.6 10^3/uL (1.0-4.8); LYMPHOCYTES % 46.1 % (24.0-44.0); MEAN CELL HGB 29.7 pg (26-34); MEAN CELL HGB CONCENTRATION 32.4 g/dL (33-37); MEAN CORP VOLUME 91.7 fL (78-100); MEAN PLATELET VOLUME 10.4 fL (7.8-11.0); MONOCYTES # 0.4 10^3/uL (0.3-0.8); MONOCYTES % 7.6 % (5.0-12.0); NEUTROPHIL # 2.5 10^3/uL (1.8-7.7); NEUTROPHILS % 43.6 % (41.0-85.0); RED CELL DISTRIBUTION WIDTH 14.8 % (11.5-14.5); WHITE BLOOD CELL 5.6 10^3/uL (4.5-11.0)
[2019-05-11 05:58] LABS: CALCIUM 8.4 mg/dL (8.4-10.5); CARBON DIOXIDE 22.5 mmol/L (20.0-32)
[2019-05-11 08:25] VITALS: BP 116/75
[2019-05-11] MEDS: TYLENOL PO PRN (09:00)
[2019-05-11] MEDS: KLONOPIN PO SCH ×2 (09:00→14:10)
[2019-05-11] MEDS: OXY-IR PO PRN (09:00)
[2019-05-11] MEDS ORDERED: ZOFRAN ODT ONE (09:22)
[2019-05-11] MEDS ORDERED: PROTONIX PO ONE (09:22)
[2019-05-11] MEDS: NICOTINE 21MG PATCH TD SCH (09:28)
[2019-05-11] MEDS ORDERED: ZOFRAN ODT SL ONE (09:28)
[2019-05-11] MEDS ORDERED: ZOFRAN ODT SL PRN (09:30)
[2019-05-11] MEDS ORDERED: PROTONIX PO SCH (10:00)
[2019-05-11] MEDS ORDERED: KLOR-CON 10 PO STA (10:31)
[2019-05-11] MEDS ORDERED: KLOR-CON 10 PO ONE ×3 (10:42→13:30)
[2019-05-11] MEDS ORDERED: MAGNESIUM SULFATE 50 ML IV ONE (13:30)
[2019-05-11] MEDS ORDERED: MAG-OX PO STA (14:02)
[2019-05-11] MEDS ORDERED: MAG-OX ONE (14:06)
[2019-05-11] MEDS ORDERED: Magnesium Oxide PO (14:11)
--- NOTE | 2019-05-11 14:19 | PRM.DC ---
Discharge Summary Date of Discharge: May 11, 2019 Time of Request to Discharge: 14:05 Reason for Visit: Adominal pain, nausea x 2 days Hospital Course Patient admitted with acute pancreatitis. Patient was made NPO and given IVF, IV pain medications. Patient initially believed to have UTI. She was started on IV abx but urine cx returned mixed dank. No further treatment indicated. Patient lipase returned to normal and diet advanced as patient was able to tolerate. She was restarted on her home medications. Patient was ambulating, her GI symptoms resolved, she was tolerating diet and ready to d/c. Patient medically cleared to d/c to home self care and f/u with PCP within 1-2 weeks. Return precautions given. Patient History: Patient reports no known family medical history. General: Alert, Oriented X3, Cooperative, No acute distress HEENT: Atraumatic, PERRLA, EOMI, Mucous membr. moist/pink Neck: Supple, No JVD Lungs: Clear to auscultation, Normal air movement Heart: Regular rate, Normal S1, Normal S2, No murmurs Abdomen: Normal bowel sounds, Soft Extremities: No edema, Normal pulses, No tenderness/swelling Skin: No rashes, No breakdown, No significant lesion Neuro: Normal speech, Strength at 5/5 X4 ext, Normal tone, Sensation intact, Cranial nerves 3-12 NL Psych/Mental Status: Mental status NL, Mood NL Scheduled Albuterol Sulfate (Proventil Hfa), 2 PUFF IH Q4HR, (Reported) Clonazepam (Clonazepam), 1 TAB PO TID, (Reported) Omeprazole (Omeprazole), 40 MG PO BID, (Reported) [Magnesium Oxide], 400 MG PO BID Scheduled PRN Ondansetron (Ondansetron Odt), 4 MG PO Q4 PRN for Nausea, (Reported) Oxycodone Hcl/Acetaminophen (Percocet 10-325 Mg Tablet), 1 TAB PO BID PRN for PAIN, (Reported) Tizanidine Hcl (Zanaflex), 1 TAB PO TID PRN for BACK PAIN, (Reported) Sepsis Evaluation @ Discharge Vital Sign - Last 24 Hours 05/09/19 05/09/19 05/09/19 05/09/19 12:55 12:55 13:40 14:48 Temp 98.0 98.0 Pulse 91 91 83 70 Resp 20 20 17 18 B/P (MAP) 125/63 (83) 147/70 (95) 127/91 (103) Pulse Ox 96 95 100 O2 Delivery Room Air Room Air Room Air Laboratory Tests Test 05/09/19 13:08 05/09/19 13:13 Urine Collection Type VOID Urine Color YELLOW Urine Appearance HAZY Urine Bilirubin NEGATIVE MG/DL Urine Ketones NEGATIVE Urine Specific [place] 1.020 Urine pH 5 Urine Protein NEGATIVE Urine Urobilinogen NORMAL Urine Nitrate NEGATIVE Urine Leukocyte Esterase 25 /uL TRACE Urine Blood 150 3+ Urine RBC 10-25 RBC/HPF Urine WBC 0-2 WBC/HPF Urine Squamous Epithelial Cells FEW #/HPF Urine Bacteria FEW Urine Glucose NORMAL White Blood Count 7.5 10^3/uL Red Blood Count 4.72 10^6/uL Hemoglobin 14.0 g/dL Hematocrit 42.6 % Mean Corpuscular Volume 90.3 fL Mean Corpuscular Hemoglobin 29.7 pg Mean Corpuscular Hemoglobin Concent 32.9 g/dL Red Cell Distribution Width 15.0 % Platelet Count 305 10^3/uL Mean Platelet Volume 9.9 fL Neutrophils (%) (Auto) 48.5 % Lymphocytes (%) (Auto) 43.4 % Monocytes (%) (Auto) 5.7 % Neutrophils # (Auto) 3.7 10^3/uL Lymphocytes # (Auto) 3.3 10^3/uL Monocytes # (Auto) 0.4 10^3/uL Absolute Immature Granulocyte (auto 0.01 10^3 u/L Immature Granulocytes % 0.10 % Eosinophils % 1.9 % Basophils % 0.4 % Basophils # 0.0 10^3/uL Eosinophil Count 0.1 10^3/uL Prothrombin Time 10.0 SEC Prothrombin Time INR (Non-Therap) 1.0 Activated Partial Thromboplast Time 24.7 SEC Sodium Level 142 mmol/L Potassium Level 3.7 mmol/L Chloride Level 108.0 mmol/L Carbon Dioxide Level 23.0 mmol/L Anion Gap 14.7 Blood Urea Nitrogen 10 mg/dL Creatinine 0.78 mg/dL Estimated GFR () 98.0 BUN/Creatinine Ratio 12.0 Glucose Level 88 mg/dL Calcium Level 9.1 mg/dL Total Bilirubin 0.4 mg/dL Aspartate Amino Transf (AST/SGOT) 12 U/L Alanine Aminotransferase (ALT/SGPT) 12 U/L Alkaline Phosphatase 61 U/L Total Protein 7.2 g/dL Albumin 3.6 g/dL Globulin 3.6 Lipase 984 U/L Serum HCG, Qualitative NEGATIVE Course Sepsis Screening Results: Posi: NEGATIVE Sepsis Qualifier/Stage: NO DEFINITE RISK Duration or Total Time Spent w: 60 mins Vitals & review Data Vital Sign - Last 24 Hours 05/09/19 05/09/19 05/09/19 05/09/19 12:55 12:55 13:40 14:48 Temp 98.0 98.0 Pulse 91 91 83 70 Resp 20 20 17 18 B/P (MAP) 125/63 (83) 147/70 (95) 127/91 (103) Pulse Ox 96 95 100 O2 Delivery Room Air Room Air Room Air Laboratory Tests Test 05/09/19 13:08 05/09/19 13:13 Urine Collection Type VOID Urine Color YELLOW Urine Appearance HAZY Urine Bilirubin NEGATIVE MG/DL Urine Ketones NEGATIVE Urine Specific [place] 1.020 Urine pH 5 Urine Protein NEGATIVE Urine Urobilinogen NORMAL Urine Nitrate NEGATIVE Urine Leukocyte Esterase 25 /uL TRACE Urine Blood 150 3+ Urine RBC 10-25 RBC/HPF Urine WBC 0-2 WBC/HPF Urine Squamous Epithelial Cells FEW #/HPF Urine Bacteria FEW Urine Glucose NORMAL White Blood Count 7.5 10^3/uL Red Blood Count 4.72 10^6/uL Hemoglobin 14.0 g/dL Hematocrit 42.6 % Mean Corpuscular Volume 90.3 fL Mean Corpuscular Hemoglobin 29.7 pg Mean Corpuscular Hemoglobin Concent 32.9 g/dL Red Cell Distribution Width 15.0 % Platelet Count 305 10^3/uL Mean Platelet Volume 9.9 fL Neutrophils (%) (Auto) 48.5 % Lymphocytes (%) (Auto) 43.4 % Monocytes (%) (Auto) 5.7 % Neutrophils # (Auto) 3.7 10^3/uL Lymphocytes # (Auto) 3.3 10^3/uL Monocytes # (Auto) 0.4 10^3/uL Absolute Immature Granulocyte (auto 0.01 10^3 u/L Immature Granulocytes % 0.10 % Eosinophils % 1.9 % Basophils % 0.4 % Basophils # 0.0 10^3/uL Eosinophil Count 0.1 10^3/uL Prothrombin Time 10.0 SEC Prothrombin Time INR (Non-Therap) 1.0 Activated Partial Thromboplast Time 24.7 SEC Sodium Level 142 mmol/L Potassium Level 3.7 mmol/L Chloride Level 108.0 mmol/L Carbon Dioxide Level 23.0 mmol/L Anion Gap 14.7 Blood Urea Nitrogen 10 mg/dL Creatinine 0.78 mg/dL Estimated GFR () 98.0 BUN/Creatinine Ratio 12.0 Glucose Level 88 mg/dL Calcium Level 9.1 mg/dL Total Bilirubin 0.4 mg/dL Aspartate Amino Transf (AST/SGOT) 12 U/L Alanine Aminotransferase (ALT/SGPT) 12 U/L Alkaline Phosphatase 61 U/L Total Protein 7.2 g/dL Albumin 3.6 g/dL Globulin 3.6 Lipase 984 U/L Serum HCG, Qualitative NEGATIVE Sepsis Infection Criteria Pres: Documented Infection LEVEL 1 SEPSIS INFECTION CRITE: ABX Therapy O2 Sat by Pulse Oximetry: 98 Plan Discharge Date: May 11, 2019 Dicharge DX: Acute Pancreatitis Discharge Disposition: Stable Plan ok to d/c to home self care medications: per med rec list Diet: soft/bland Activity: as tolerated F/U with PCP within 1-2 weeks Return to care for worsening/concerning symptoms SIENNA MESSINA MD May 11, 2019 14:19
[2019-05-11 14:51] VITALS: BP 116/75
[2019-05-11] MEDS ORDERED: MAG-OX PO SCH (21:00)
[2019-05-12] MEDS ORDERED: PROTONIX PO SCH (09:00)
== END 2019-05-11 14:42 | disposition home or self-care (01) | DRG 282 ==
LOC: ER 12:48 → MS 15:52
PROVIDERS: ADMIT Family Medicine; ATTEND Family Medicine
DX: K85.90 Acute pancreatitis without necrosis or infection, unspecified (principal); E87.6 Hypokalemia; N39.0 Urinary tract infection, site not specified; F17.210 Nicotine dependence, cigarettes, uncomplicated; G89.29 Other chronic pain; F41.9 Anxiety disorder, unspecified; J44.9 Chronic obstructive pulmonary disease, unspecified; M54.5 Low back pain; Z88.0 Allergy status to penicillin; Z88.1 Allergy status to other antibiotic agents; Z88.2 Allergy status to sulfonamides; Z88.8 Allergy status to other drugs, medicaments and biological substances; Z88.6 Allergy status to analgesic agent; Z90.49 Acquired absence of other specified parts of digestive tract
CPT/HCPCS: 36415; 74177; 80053; 81000; 83690; 83735; 84703; 85025; 85610; 85730; 87086; 94640; 99285; C9113; G0378; J0696; J1170; J2060; J2405; J2550; J3010; J3490; J7030; J7050; J7620; Q0162; Q0163; Q9965

== ENCOUNTER 2019-05-26 15:50 | Emergency (ER) | payer OTHER ==
[~2019-05-26] VITALS: Ht 172.7 cm; Wt 88.9 kg
[~2019-05-26 15:50] MED LIST: ALBU6.7H8 IH; CLON1TAB11 PO; Magnesium Oxide PO; OMEP40CA41 PO; ONDA4TAB13 PO; OXYC-323 PO; TIZA4TAB9 PO
[2019-05-26 15:57] VITALS: BP 157/114
[2019-05-26 16:13] VITALS: BP 157/114
[2019-05-26] MEDS ORDERED: NS 1000ML 1,000 ML IV ONE ×2 (16:19→16:30)
[2019-05-26] MEDS ORDERED: REGLAN IV STA (16:19)
[2019-05-26] MEDS ORDERED: BENADRYL IV STA (16:19)
--- NOTE | 2019-05-26 16:23 | ER.PDOC ---
General Chief Complaint: Abdomen Pain Stated Complaint: VOMITING,AB PAIN Time seen by MD: 16:05 Source: patient Exam Limitations: no limitations History of Present Illness Initial Comments two days of abd pain low abdomen, patient states was admitted ot hospital for pancreatitis feels similar to previous Timing/Duration: other Severity/Quality: moderate Associated Symptoms: nausea/vomiting Exacerbated by: movements Relieved By: remaining still Allergies: Coded Allergies: morphine (Verified Allergy, Severe, Shortness of Breath, 03/04/19) Penicillins (Verified Allergy, Unknown, Hives, 05/05/17) amoxicillin (Verified Allergy, Unknown, Anaphylaxis Shock, 03/17/18) ketorolac (Verified Allergy, Unknown, Swelling, 05/05/17) naproxen (Verified Allergy, Unknown, 05/05/17) pamabrom (Verified Allergy, Unknown, 05/05/17) sulfamethoxazole (Verified Allergy, Unknown, Hives, 05/05/17) tramadol (Verified Allergy, Unknown, Hives, 05/05/17) trimethoprim (Verified Allergy, Unknown, Hives, 05/05/17) Home Meds Active Scripts [Magnesium Oxide] 400 MG TABLET No Conflict Check, 400 MG PO BID for 7 Days, #14 TAB 0 Refills Prov:SIENNA MESSINA MD 05/11/19 Reported Medications Albuterol Sulfate (PROVENTIL HFA) 6.7 Gm Hfa.aer.ad, 2 PUFF IH Q4HR, #1 INHALER 05/09/19 Tizanidine Hcl (ZANAFLEX) 4 Mg Tablet, 1 TAB PO TID PRN for BACK PAIN for 30 Days, #90 TAB 0 Refills 05/09/19 Ondansetron (ONDANSETRON ODT) 4 Mg Tab.rapdis, 4 MG PO Q4 PRN for Nausea, TAB 05/09/19 Clonazepam (CLONAZEPAM) 1 Mg Tablet, 1 TAB PO TID for anxiety, #90 TAB 05/09/19 Omeprazole (OMEPRAZOLE) 40 Mg Capsule.dr, 40 MG PO BID for 30 Days, #30 TAB 05/09/19 Oxycodone Hcl/Acetaminophen (PERCOCET 10-325 MG TABLET) 1 Each Tablet, 1 TAB PO BID PRN for PAIN MDD 4 Tablet(s) for 5 Days, #20 TAB 0 Refills 05/09/19 Vital Signs First Vital Signs Date Time Temp Pulse Resp B/P (MAP) Pulse Ox O2 Delivery O2 Flow Rate FiO2 05/26/19 15:57 98.0 104 16 96 Room Air 05/26/19 16:13 157/114 (128) Last Vital Signs Date Time Temp Pulse Resp B/P (MAP) Pulse Ox O2 Delivery O2 Flow Rate FiO2 05/26/19 16:13 98.0 104 18 157/114 (128) 96 Room Air Past Medical History Medical History: other Surgical History: back, cholecystectomy, tubal Social History Smoking: cigarettes, less than 1 pack/day Alcohol Use: rarely Drug Use: marijuana Constitutional: denies chills EENTM: denies ear pain Respiratory: denies cough Cardiovascular: denies chest pain, denies palpitations, denies syncope Gastrointestinal: denies diarrhea; nausea, vomiting Genitourinary: denies flank pain Musculoskeletal: denies back pain, denies muscle stiffness, denies neck pain Skin: denies rash Psychiatric/Neurological: denies headache Physical Exam General Appearance: No Apparent Distress, WD/WN HEENT: Normal ENT Inspection Neck: Non-Tender Respiratory: chest non-tender, lungs clear, normal breath sounds Cardiovascular: Regular Rate, Rhythm Gastrointestinal: Soft, Tenderness Back: Normal Inspection Extremities: Normal Range of Motion, Non-Tender 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, No Motor/Sensory Deficits, Alert, Normal Mood/Affect, Oriented x 3 Skin: Normal Color Results/Orders Results/Orders Orders - KEYONA,MYNOR Wang MD Cbc With Auto Diff (05/26/19 16:19) Comprehensive Metabolic Panel (05/26/19 16:19) Amylase (05/26/19 16:19) Lipase (05/26/19 16:19) Helicobacter Pylori (05/26/19 16:19) Ct Abd/Pel With Iv Contrast (05/26/19 16:19) Hcg Qualitative Serum (05/26/19 16:19) Urinalysis (05/26/19 16:19) Saline Lock (05/26/19 16:19) Drug Screen Medical(Ml) (05/26/19 16:19) 0.9 % Sodium Chloride (Ns 1000ml) (05/26/19 16:30) Diphenhydramine Hcl (Benadryl) (05/26/19 16:19) Metoclopramide Hcl (Reglan) (05/26/19 16:19) 0.9 % Sodium Chloride (Ns 1000ml) (05/26/19 16:19) Ondansetron Hcl/Pf (Zofran 4 Mg/2 Ml Via (05/26/19 17:30) Ondansetron Hcl/Pf (Zofran 4 Mg/2 Ml Via (05/26/19 17:02) Vital Signs Date Time Temp Pulse Resp B/P (MAP) Pulse Ox O2 Delivery O2 Flow Rate FiO2 05/26/19 16:13 98.0 104 18 157/114 (128) 96 Room Air 05/26/19 15:57 98.0 104 18 05/26/19 15:57 98.0 104 16 96 Room Air Administered Medications Medications (Trade) Dose Ordered Sig/Bo Route PRN Reason Start Time Stop Time Status Last Admin Dose Admin Diphenhydramine HCl (Benadryl) 50 mg STAT STAT IV 05/26/19 16:19 05/26/19 16:20 UNV 05/26/19 16:45 50 MG Ondansetron HCl (Zofran 4 Mg/2 ml Vial) 4 mg STAT ONCE IV 05/26/19 17:30 05/26/19 17:31 DC 05/26/19 17:00 4 MG Sodium Chloride 1,000 ml @ 0 mls/hr Q0M ONCE IV 05/26/19 16:30 05/26/19 16:31 UNV 05/26/19 16:45 1,200 MLS/HR Laboratory Tests Test 05/26/19 16:35 White Blood Count 8.3 10^3/uL (4.5-11.0) Red Blood Count 4.64 10^6/uL (4.00-5.20) Hemoglobin 13.9 g/dL (12.0-15.0) Hematocrit 41.4 % (36.0-46.0) Mean Corpuscular Volume 89.2 fL (78-100) Mean Corpuscular Hemoglobin 30.0 pg (26-34) Mean Corpuscular Hemoglobin Concent 33.6 g/dL (33-37) Red Cell Distribution Width 14.5 % (11.5-14.5) Platelet Count 352 10^3/uL (150-400) Mean Platelet Volume 10.3 fL (7.8-11.0) Neutrophils (%) (Auto) 50.1 % (41.0-85.0) Lymphocytes (%) (Auto) 39.4 % (24.0-44.0) Monocytes (%) (Auto) 6.8 % (5.0-12.0) Neutrophils # (Auto) 4.2 10^3/uL (1.8-7.7) Lymphocytes # (Auto) 3.3 10^3/uL (1.0-4.8) Monocytes # (Auto) 0.6 10^3/uL (0.3-0.8) Absolute Immature Granulocyte (auto 0.02 10^3 u/L (0-2) Immature Granulocytes % 0.20 % (0.00-0.50) Eosinophils % 3.3 % (0.0-5.0) Basophils % 0.2 % (0.0-0.2) Basophils # 0.0 10^3/uL (0.0-0.1) Eosinophil Count 0.3 10^3/uL (0.0-0.2) H Urine Collection Type VOID Urine Color YELLOW (YELLOW) Urine Appearance CLEAR (CLEAR) Urine Bilirubin NEGATIVE MG/DL (NEGATIVE) Urine Ketones NEGATIVE (NEGATIVE) Urine Specific [place] 1.020 (1.005-1.035) Urine pH 5 (5.0-6.0) Urine Protein NEGATIVE (NEGATIVE) Urine Urobilinogen NORMAL (NEGATIVE) Urine Nitrate NEGATIVE (NEGATIVE) Urine Leukocyte Esterase NEGATIVE (NEGATIVE) Urine Blood 150 3+ (NEGATIVE) H Urine RBC 2-5 RBC/HPF (NONE SEEN) Urine WBC 0-2 WBC/HPF (0-2) Urine Squamous Epithelial Cells FEW #/HPF (FEW) Urine Bacteria NONE SEEN (NONE SEEN) Urine Glucose NORMAL (NEGATIVE) Sodium Level 141 mmol/L (132-145) Potassium Level 3.9 mmol/L (3.6-5.2) Chloride Level 109.0 mmol/L (96-109) Carbon Dioxide Level 22.4 mmol/L (20.0-32) Anion Gap 13.5 Blood Urea Nitrogen 14 mg/dL (7-18) Creatinine 0.77 mg/dL (0.59-1.40) Estimated GFR () 99.5 (>/=60) BUN/Creatinine Ratio 18.0 Glucose Level 84 mg/dL (70-110) Calcium Level 8.7 mg/dL (8.4-10.5) Total Bilirubin 0.3 mg/dL (0.2-1.0) Aspartate Amino Transferase (AST) 15 U/L (0-35) Alanine Aminotransferase (ALT) 9 U/L (12-78) L Alkaline Phosphatase 53 U/L (50-136) Total Protein 6.9 g/dL (6.4-8.2) Albumin 3.4 g/dL (3.4-5.0) Globulin 3.5 Amylase Level 34 U/L (25-115) Lipase 72 U/L (114-286) L Serum HCG, Qualitative NEGATIVE (NEGATIVE) Urine Opiates, Qualitative NEGATIVE ng/mL (CUT-OFF:300) Urine Methadone, Qualitative NEGATIVE ng/mL (CUT-OFF:300) Urine Amphetamine Qualitative NEGATIVE ng/mL (CUTOFF:1000) Urine Barbiturates, Qualitative NEGATIVE ng/mL (CUT-OFF:200) Urine Phencyclidine Screen NEGATIVE ng/mL (CUT-OFF:25) Urine MDMA (Ecstasy), Qualitative NEGATIVE ng/mL (CUT-OFF:300) Urine Benzodiazepines Screen NEGATIVE ng/mL (CUT-OFF:200) Urine Cocaine Qualitative NEGATIVE ng/mL (CUT-OFF:300) Ur Tetrahydrocannabinol (THC) Scrn POSITIVE ng/mL (CUT-OFF:50) H Helicobacter pylori Screen NEGATIVE (NEGATIVE) Progress Progress patient states taking ativan and percocet for pain and anxiety, these drugs were not found on drug screen Course Sepsis Screening Results: Posi: POSITIVE SEPSIS RISK Sepsis Qualifier/Stage: NO DEFINITE RISK Duration or Total Time Spent w: 60 mins Vitals & review Data Vital Sign - Last 24 Hours 05/26/19 05/26/19 05/26/19 15:57 15:57 16:13 Temp 98.0 98.0 98.0 Pulse 104 104 104 Resp 16 18 18 B/P (MAP) 157/114 (128) Pulse Ox 96 96 O2 Delivery Room Air Room Air Laboratory Tests Test 05/26/19 16:35 White Blood Count 8.3 10^3/uL Red Blood Count 4.64 10^6/uL Hemoglobin 13.9 g/dL Hematocrit 41.4 % Mean Corpuscular Volume 89.2 fL Mean Corpuscular Hemoglobin 30.0 pg Mean Corpuscular Hemoglobin Concent 33.6 g/dL Red Cell Distribution Width 14.5 % Platelet Count 352 10^3/uL Mean Platelet Volume 10.3 fL Neutrophils (%) (Auto) 50.1 % Lymphocytes (%) (Auto) 39.4 % Monocytes (%) (Auto) 6.8 % Neutrophils # (Auto) 4.2 10^3/uL Lymphocytes # (Auto) 3.3 10^3/uL Monocytes # (Auto) 0.6 10^3/uL Absolute Immature Granulocyte (auto 0.02 10^3 u/L Immature Granulocytes % 0.20 % Eosinophils % 3.3 % Basophils % 0.2 % Basophils # 0.0 10^3/uL Eosinophil Count 0.3 10^3/uL Urine Collection Type VOID Urine Color YELLOW Urine Appearance CLEAR Urine Bilirubin NEGATIVE MG/DL Urine Ketones NEGATIVE Urine Specific [place] 1.020 Urine pH 5 Urine Protein NEGATIVE Urine Urobilinogen NORMAL Urine Nitrate NEGATIVE Urine Leukocyte Esterase NEGATIVE Urine Blood 150 3+ Urine RBC 2-5 RBC/HPF Urine WBC 0-2 WBC/HPF Urine Squamous Epithelial Cells FEW #/HPF Urine Bacteria NONE SEEN Urine Glucose NORMAL Sodium Level 141 mmol/L Potassium Level 3.9 mmol/L Chloride Level 109.0 mmol/L Carbon Dioxide Level 22.4 mmol/L Anion Gap 13.5 Blood Urea Nitrogen 14 mg/dL Creatinine 0.77 mg/dL Estimated GFR () 99.5 BUN/Creatinine Ratio 18.0 Glucose Level 84 mg/dL Calcium Level 8.7 mg/dL Total Bilirubin 0.3 mg/dL Aspartate Amino Transf (AST/SGOT) 15 U/L Alanine Aminotransferase (ALT/SGPT) 9 U/L Alkaline Phosphatase 53 U/L Total Protein 6.9 g/dL Albumin 3.4 g/dL Globulin 3.5 Amylase Level 34 U/L Lipase 72 U/L Serum HCG, Qualitative NEGATIVE Urine Opiates, Qualitative NEGATIVE ng/mL Urine Methadone, Qualitative NEGATIVE ng/mL Urine Amphetamine Qualitative NEGATIVE ng/mL Urine Barbiturates, Qualitative NEGATIVE ng/mL Urine Phencyclidine Screen NEGATIVE ng/mL Urine MDMA (Ecstasy), Qualitative NEGATIVE ng/mL Urine Benzodiazepines Screen NEGATIVE ng/mL Urine Cocaine Qualitative NEGATIVE ng/mL Ur Tetrahydrocannabinol (THC) Scrn POSITIVE ng/mL Helicobacter pylori Screen NEGATIVE Current Medications Medications (Trade) Dose Ordered Sig/Bo PRN Reason Start Time Stop Time Status Last Admin Diphenhydramine HCl (Benadryl) 50 mg STAT STAT 05/26/19 16:19 05/26/19 16:20 UNV 05/26/19 16:45 Metoclopramide HCl (Reglan) 10 mg STAT STAT 05/26/19 16:19 05/26/19 16:20 UNV Sepsis Infection Criteria Pres: Documented Infection LEVEL 1 SEPSIS INFECTION CRITE: ABX Therapy O2 Sat by Pulse Oximetry: 96 Departure Time of Disposition: 17:34 Disposition: 01 HOME, SELF-CARE Impression: Primary Impression: Abdominal pain Additional Impression: Vomiting Condition: Improved Patient Instructions: Abdominal Pain, Nausea and Vomiting Referrals: KEE FERNÁNDEZ MD (PCP) PRIMARY CARE PROVIDER Additional Instructions: return for any worsening symptoms, call your doctor in am for appointment Duration or Time Spent with Pa: 15 Problem Qualifiers MYNOR RAND MD May 26, 2019 16:23
[2019-05-26] MEDS ORDERED: BENADRYL ONE (16:39)
[2019-05-26] MEDS ORDERED: NS 1000ML 1,000 ML ONE (16:39)
[2019-05-26 16:41] LABS: BASOPHIL % 0.2 % (0.0-0.2); EOSINOPHIL # 0.3 10^3/uL (0.0-0.2); EOSINOPHIL % 3.3 % (0.0-5.0); HEMOGLOBIN 13.9 g/dL (12.0-15.0); LYMPHOCYTES # 3.3 10^3/uL (1.0-4.8); LYMPHOCYTES % 39.4 % (24.0-44.0); MEAN CELL HGB CONCENTRATION 33.6 g/dL (33-37); MEAN CORP VOLUME 89.2 fL (78-100); MEAN PLATELET VOLUME 10.3 fL (7.8-11.0); MONOCYTES # 0.6 10^3/uL (0.3-0.8); MONOCYTES % 6.8 % (5.0-12.0); NEUTROPHIL # 4.2 10^3/uL (1.8-7.7); NEUTROPHILS % 50.1 % (41.0-85.0); RED CELL DISTRIBUTION WIDTH 14.5 % (11.5-14.5); WHITE BLOOD CELL 8.3 10^3/uL (4.5-11.0)
[2019-05-26 16:44] LABS: BILIRUBIN,URINE NEGATIVE (NEGATIVE); UROBILINOGEN,URINE NORMAL (NEGATIVE)
[2019-05-26 16:50] LABS: APPEARANCE,URINE CLEAR (CLEAR); UA COLOR YELLOW (YELLOW)
--- NOTE | 2019-05-26 16:53 | NUR ---
LORNA PT STATES REGLAN GIVES HER RESTLESS LEGS, DOESN'T WANT TO TAKE.
[2019-05-26] MEDS ORDERED: ZOFRAN 4 MG/2 ML VIAL ONE (17:02)
[2019-05-26 17:06] LABS: CALCIUM 8.7 mg/dL (8.4-10.5); CARBON DIOXIDE 22.4 mmol/L (20.0-32)
[2019-05-26 17:08] LABS: HCG QUALITATIVE -RESTRICTLAB NEGATIVE (NEGATIVE)
[2019-05-26] MEDS ORDERED: ZOFRAN 4 MG/2 ML VIAL IV ONE (17:30)
--- NOTE | 2019-05-26 17:33 | DIREP ---
PROCEDURE:CT ABD/PELVIS WITH CONTRAST TECHNIQUE:Following the intravenous administration of contrast material, venous phase cuts were obtained through the abdomen and pelvis. The images were viewed at lung and soft tissue settings. Sagittal and coronal reconstructions are provided. COMPARISON:[facility], CT, CT ABD/PELVIS W/ CONTRAST, 05/09/2019, 02:36 PM. INDICATIONS:mid abd pain with hx of pancreatitis FINDINGS: LOWER CHEST:The lung bases are clear. LIVER:Normal. BILIARY:Previous cholecystectomy. PANCREAS:Normal. SPLEEN:Normal. URINARY TRACT:Normal. ADRENALS:Normal. AORTA/VASCULAR:Normal. RETROPERITONEUM:Normal. BOWEL/MESENTERY:Normal. The appendix is identified series [id number], image 35 is normal. ABDOMINAL WALL:Normal. PELVIS:Normal. BONES:Disc narrowing with vacuum changes with adjacent endplate sclerosis L5-S1. OTHER:Normal. CONCLUSION: 1. No acute abnormalities. The pancreas and peripancreatic tissues are normal. 2. Previous cholecystectomy. 3. No change from previous study. Dictated by: Noe Delgado M.D. on 05/26/2019 at 05:25 PM
== END 2019-05-26 17:45 | disposition home or self-care (01) ==
LOC: ER 15:50
DX: R10.30 Lower abdominal pain, unspecified (principal); R11.2 Nausea with vomiting, unspecified; F17.210 Nicotine dependence, cigarettes, uncomplicated; F12.10 Cannabis abuse, uncomplicated; Z79.899 Other long term (current) drug therapy; Z88.0 Allergy status to penicillin; Z88.1 Allergy status to other antibiotic agents; Z88.2 Allergy status to sulfonamides; Z88.5 Allergy status to narcotic agent; Z88.6 Allergy status to analgesic agent; Z88.8 Allergy status to other drugs, medicaments and biological substances; Z90.49 Acquired absence of other specified parts of digestive tract
CPT/HCPCS: 36415; 74177; 80053; 80307; 80349; 81000; 82150; 83690; 84703; 85025; 86677; 96361; 96374; 96375; 99285; J1200; J2405; J7030

== ENCOUNTER 2019-06-24 12:05 | Inpatient (IN) | payer OTHER ==
[~2019-06-24] VITALS: Ht 172.7 cm; Wt 88.9 kg
[2019-06-24 12:35] VITALS: BP 94/56
--- NOTE | 2019-06-24 12:54 | ER.PDOC ---
General Chief Complaint: Abdomen Pain Stated Complaint: ABD PAIN Time seen by MD: 12:52 Source: patient Exam Limitations: no limitations History of Present Illness Initial Comments Abdominal pain for 3 days. Thinks she is constipated because she takes Oxycodone and has not had a bowel movement for 3 days. Severity/Quality: moderate Radiation: no radiation Associated Symptoms: denies symptoms Exacerbated by: nothing Relieved By: nothing Allergies: Coded Allergies: morphine (Verified Allergy, Severe, Shortness of Breath, 03/04/19) Penicillins (Verified Allergy, Unknown, Hives, 05/05/17) amoxicillin (Verified Allergy, Unknown, Anaphylaxis Shock, 03/17/18) ketorolac (Verified Allergy, Unknown, Swelling, 05/05/17) naproxen (Verified Allergy, Unknown, 05/05/17) pamabrom (Verified Allergy, Unknown, 05/05/17) sulfamethoxazole (Verified Allergy, Unknown, Hives, 05/05/17) tramadol (Verified Allergy, Unknown, Hives, 05/05/17) trimethoprim (Verified Allergy, Unknown, Hives, 05/05/17) Home Meds Active Scripts [Magnesium Oxide] 400 MG TABLET No Conflict Check, 400 MG PO BID for 7 Days, #14 TAB 0 Refills Prov:SIENNA MESSINA MD 05/11/19 Reported Medications Albuterol Sulfate (PROVENTIL HFA) 6.7 Gm Hfa.aer.ad, 2 PUFF IH Q4HR, #1 INHALER 05/09/19 Tizanidine Hcl (ZANAFLEX) 4 Mg Tablet, 1 TAB PO TID PRN for BACK PAIN for 30 Days, #90 TAB 0 Refills 05/09/19 Ondansetron (ONDANSETRON ODT) 4 Mg Tab.rapdis, 4 MG PO Q4 PRN for Nausea, TAB 05/09/19 Clonazepam (CLONAZEPAM) 1 Mg Tablet, 1 TAB PO TID for anxiety, #90 TAB 05/09/19 Omeprazole (OMEPRAZOLE) 40 Mg Capsule.dr, 40 MG PO BID for 30 Days, #30 TAB 05/09/19 Oxycodone Hcl/Acetaminophen (PERCOCET 10-325 MG TABLET) 1 Each Tablet, 1 TAB PO BID PRN for PAIN MDD 4 Tablet(s) for 5 Days, #20 TAB 0 Refills 05/09/19 Vital Signs First Vital Signs Date Time Temp Pulse Resp B/P (MAP) Pulse Ox O2 Delivery O2 Flow Rate FiO2 06/24/19 12:28 97.9 103 18 99 06/24/19 12:35 94/56 (69) Last Vital Signs Date Time Temp Pulse Resp B/P (MAP) Pulse Ox O2 Delivery O2 Flow Rate FiO2 06/24/19 12:35 97.9 103 18 94/56 (69) 99 Past Medical History Medical History: other Surgical History: back, cholecystectomy, tubal Social History Alcohol Use: none Drug Use: none, marijuana Constitutional: no symptoms reported Respiratory: no symptoms reported Cardiovascular: no symptoms reported Gastrointestinal: see HPI Genitourinary: no symptoms reported All Other Systems: Reviewed and Negative Physical Exam General Appearance: No Apparent Distress, WD/WN Neck: Non-Tender, Full Range of Motion, Supple, Normal Inspection Respiratory: chest non-tender, lungs clear, normal breath sounds, no respiratory distress, no accessory muscle use Cardiovascular: Normal Peripheral Pulses, Regular Rate, Rhythm, No Edema, No Gallop, No JVD, No Murmur Gastrointestinal: Normal Bowel Sounds, No Organomegaly, No Pulsatile Mass, Guarding, Tenderness (lower abdomen) Back: Normal Inspection, No CVA Tenderness, No Vertebral Tenderness Extremities: Normal Range of Motion, Non-Tender, Normal Inspection, No Pedal Edema, No Calf Tenderness, Normal Capillary Refill, Pelvis Stable 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, No Motor/Sensory Deficits, Alert, Normal Mood/Affect, Oriented x 3 Skin: Normal Color, Warm/Dry Results/Orders Results/Orders Orders - TREVA BONILLA MD Cbc With Auto Diff (06/24/19 12:49) Comprehensive Metabolic Panel (06/24/19 12:49) Lipase (06/24/19 12:49) Urinalysis (06/24/19 12:49) Ct Abd/Pelvis Wo Iv Contrast (06/24/19 12:49) Hcg Urine (06/24/19 12:49) Drug Screen Medical(Ml) (06/24/19 13:30) Ibuprofen (Motrin) (06/24/19 13:36) Ibuprofen (Motrin) (06/24/19 13:36) Vital Signs Date Time Temp Pulse Resp B/P (MAP) Pulse Ox O2 Delivery O2 Flow Rate FiO2 06/24/19 12:35 97.9 103 18 94/56 (69) 99 06/24/19 12:35 97.9 103 18 06/24/19 12:28 97.9 103 18 99 Administered Medications Medications (Trade) Dose Ordered Sig/Bo Route PRN Reason Start Time Stop Time Status Last Admin Dose Admin Ibuprofen (Motrin) 800 mg STAT STAT PO 06/24/19 13:36 06/24/19 13:38 DC 06/24/19 13:40 800 MG Laboratory Tests Test 06/24/19 12:10 06/24/19 12:44 White Blood Count 17.0 10^3/uL (4.5-11.0) H Red Blood Count 4.82 10^6/uL (4.00-5.20) Hemoglobin 14.3 g/dL (12.0-15.0) Hematocrit 43.4 % (36.0-46.0) Mean Corpuscular Volume 90.0 fL (78-100) Mean Corpuscular Hemoglobin 29.7 pg (26-34) Mean Corpuscular Hemoglobin Concent 32.9 g/dL (33-37) L Red Cell Distribution Width 14.4 % (11.5-14.5) Platelet Count 371 10^3/uL (150-400) Mean Platelet Volume 10.0 fL (7.8-11.0) Neutrophils (%) (Auto) 81.4 % (41.0-85.0) Lymphocytes (%) (Auto) 10.7 % (24.0-44.0) L Monocytes (%) (Auto) 6.5 % (5.0-12.0) Neutrophils # (Auto) 13.8 10^3/uL (1.8-7.7) H Lymphocytes # (Auto) 1.8 10^3/uL (1.0-4.8) Monocytes # (Auto) 1.1 10^3/uL (0.3-0.8) H Absolute Immature Granulocyte (auto 0.05 10^3 u/L (0-2) Immature Granulocytes % 0.30 % (0.00-0.50) Eosinophils % 0.9 % (0.0-5.0) Basophils % 0.2 % (0.0-0.2) Basophils # 0.0 10^3/uL (0.0-0.1) Eosinophil Count 0.2 10^3/uL (0.0-0.2) Sodium Level 142 mmol/L (132-145) Potassium Level 3.9 mmol/L (3.6-5.2) Chloride Level 109.0 mmol/L (96-109) Carbon Dioxide Level 24.6 mmol/L (20.0-32) Anion Gap 12.3 Blood Urea Nitrogen 10 mg/dL (7-18) Creatinine 0.90 mg/dL (0.59-1.40) Estimated GFR () 83.1 (>/=60) BUN/Creatinine Ratio 11.0 Glucose Level 98 mg/dL (70-110) Calcium Level 8.8 mg/dL (8.4-10.5) Total Bilirubin 0.3 mg/dL (0.2-1.0) Aspartate Amino Transferase (AST) 13 U/L (0-35) Alanine Aminotransferase (ALT) 12 U/L (12-78) Alkaline Phosphatase 61 U/L (50-136) Total Protein 7.1 g/dL (6.4-8.2) Albumin 3.4 g/dL (3.4-5.0) Globulin 3.7 Lipase 81 U/L (114-286) L Urine Collection Type CCMS Urine Color YELLOW (YELLOW) Urine Appearance CLEAR (CLEAR) Urine Bilirubin NEGATIVE MG/DL (NEGATIVE) Urine Ketones NEGATIVE (NEGATIVE) Urine Specific [place] 1.005 (1.005-1.035) Urine pH 5 (5.0-6.0) Urine Protein NEGATIVE (NEGATIVE) Urine Urobilinogen NORMAL (NEGATIVE) Urine Nitrate NEGATIVE (NEGATIVE) Urine Leukocyte Esterase NEGATIVE (NEGATIVE) Urine Blood 250 4+ (NEGATIVE) H Urine RBC 10-25 RBC/HPF (NONE SEEN) H Urine WBC 0-2 WBC/HPF (0-2) Urine Squamous Epithelial Cells FEW #/HPF (FEW) Urine Bacteria NONE SEEN (NONE SEEN) Urine Glucose NORMAL (NEGATIVE) Urine HCG, Qualitative NEGATIVE (NEGATIVE) Urine Opiates, Qualitative NEGATIVE ng/mL (CUT-OFF:300) Urine Methadone, Qualitative NEGATIVE ng/mL (CUT-OFF:300) Urine Amphetamine Qualitative NEGATIVE ng/mL (CUTOFF:1000) Urine Barbiturates, Qualitative NEGATIVE ng/mL (CUT-OFF:200) Urine Phencyclidine Screen NEGATIVE ng/mL (CUT-OFF:25) Urine MDMA (Ecstasy), Qualitative NEGATIVE ng/mL (CUT-OFF:300) Urine Benzodiazepines Screen NEGATIVE ng/mL (CUT-OFF:200) Urine Cocaine Qualitative NEGATIVE ng/mL (CUT-OFF:300) Ur Tetrahydrocannabinol (THC) Scrn POSITIVE ng/mL (CUT-OFF:50) H Progress Progress CT abdomen/pelvis: No acute intra-abdominal abnormality. Moderate fecal bu rden within the proximal colon and rectum. Nonvisualization of the appendix without secondary signs to suggest acute appendicitis. Course Sepsis Screening Results: Posi: POSITIVE SEPSIS RISK Sepsis Qualifier/Stage: NO DEFINITE RISK Duration or Total Time Spent w: 15 Vitals & review Data Vital Sign - Last 24 Hours 06/24/19 06/24/19 06/24/19 12:28 12:35 12:35 Temp 97.9 97.9 97.9 Pulse 103 103 103 Resp 18 18 18 B/P (MAP) 94/56 (69) Pulse Ox 99 99 Laboratory Tests Test 06/24/19 12:10 06/24/19 12:44 White Blood Count 17.0 10^3/uL Red Blood Count 4.82 10^6/uL Hemoglobin 14.3 g/dL Hematocrit 43.4 % Mean Corpuscular Volume 90.0 fL Mean Corpuscular Hemoglobin 29.7 pg Mean Corpuscular Hemoglobin Concent 32.9 g/dL Red Cell Distribution Width 14.4 % Platelet Count 371 10^3/uL Mean Platelet Volume 10.0 fL Neutrophils (%) (Auto) 81.4 % Lymphocytes (%) (Auto) 10.7 % Monocytes (%) (Auto) 6.5 % Neutrophils # (Auto) 13.8 10^3/uL Lymphocytes # (Auto) 1.8 10^3/uL Monocytes # (Auto) 1.1 10^3/uL Absolute Immature Granulocyte (auto 0.05 10^3 u/L Immature Granulocytes % 0.30 % Eosinophils % 0.9 % Basophils % 0.2 % Basophils # 0.0 10^3/uL Eosinophil Count 0.2 10^3/uL Sodium Level 142 mmol/L Potassium Level 3.9 mmol/L Chloride Level 109.0 mmol/L Carbon Dioxide Level 24.6 mmol/L Anion Gap 12.3 Blood Urea Nitrogen 10 mg/dL Creatinine 0.90 mg/dL Estimated GFR () 83.1 BUN/Creatinine Ratio 11.0 Glucose Level 98 mg/dL Calcium Level 8.8 mg/dL Total Bilirubin 0.3 mg/dL Aspartate Amino Transf (AST/SGOT) 13 U/L Alanine Aminotransferase (ALT/SGPT) 12 U/L Alkaline Phosphatase 61 U/L Total Protein 7.1 g/dL Albumin 3.4 g/dL Globulin 3.7 Lipase 81 U/L Urine Collection Type CCMS Urine Color YELLOW Urine Appearance CLEAR Urine Bilirubin NEGATIVE MG/DL Urine Ketones NEGATIVE Urine Specific [place] 1.005 Urine pH 5 Urine Protein NEGATIVE Urine Urobilinogen NORMAL Urine Nitrate NEGATIVE Urine Leukocyte Esterase NEGATIVE Urine Blood 250 4+ Urine RBC 10-25 RBC/HPF Urine WBC 0-2 WBC/HPF Urine Squamous Epithelial Cells FEW #/HPF Urine Bacteria NONE SEEN Urine Glucose NORMAL Urine HCG, Qualitative NEGATIVE Urine Opiates, Qualitative NEGATIVE ng/mL Urine Methadone, Qualitative NEGATIVE ng/mL Urine Amphetamine Qualitative NEGATIVE ng/mL Urine Barbiturates, Qualitative NEGATIVE ng/mL Urine Phencyclidine Screen NEGATIVE ng/mL Urine MDMA (Ecstasy), Qualitative NEGATIVE ng/mL Urine Benzodiazepines Screen NEGATIVE ng/mL Urine Cocaine Qualitative NEGATIVE ng/mL Ur Tetrahydrocannabinol (THC) Scrn POSITIVE ng/mL Sepsis Infection Criteria Pres: Documented Infection LEVEL 1 SEPSIS INFECTION CRITE: ABX Therapy O2 Sat by Pulse Oximetry: 99 Departure Time of Disposition: 14:05 Disposition: 09 ADMITTED INPATIENT Impression: Primary Impression: Abdominal pain Additional Impressions: Leukocytosis Constipation Condition: Stable Referrals: KEE SHAW MD (PCP) PRIMARY CARE PROVIDER Comments Admitted to Dr. Shaw Duration or Time Spent with Pa: 45 mins Problem Qualifiers Primary Impression: Abdominal pain Abdominal location: unspecified location Qualified Codes: R10.9 - Unspecified abdominal pain Additional Impressions: Leukocytosis Leukocytosis type: unspecified Qualified Codes: D72.829 - Elevated white blood cell count, unspecified Constipation Constipation type: unspecified constipation type Qualified Codes: K59.00 - Constipation, unspecified TREVA BONILLA MD Jun 24, 2019 12:54
[2019-06-24 13:15] LABS: BASOPHIL % 0.2 % (0.0-0.2); EOSINOPHIL # 0.2 10^3/uL (0.0-0.2); EOSINOPHIL % 0.9 % (0.0-5.0); LYMPHOCYTES # 1.8 10^3/uL (1.0-4.8); LYMPHOCYTES % 10.7 % (24.0-44.0); MEAN CORP HGB 29.7 pg (26-34); MONOCYTES # 1.1 10^3/uL (0.3-0.8); MONOCYTES % 6.5 % (5.0-12.0); NEUTROPHIL # 13.8 10^3/uL (1.8-7.7); NEUTROPHILS % 81.4 % (41.0-85.0); RED CELL DISTRIBUTION WIDTH 14.4 % (11.5-14.5)
[2019-06-24 13:26] LABS: BILIRUBIN,URINE NEGATIVE (NEGATIVE); UROBILINOGEN,URINE NORMAL (NEGATIVE)
--- NOTE | 2019-06-24 13:26 | DIREP ---
PROCEDURE:CT ABDOMEN/PELVIS W/O CONTRAST COMPARISON:[facility], CT, CT ABD/PELVIS W/ CONTRAST, 05/26/2019, 04:51 PM. INDICATIONS:lower abdominal pain TECHNIQUE:Axial images were created through the abdomen and pelvis without intravenous contrast material. No oral contrast was administered. Sagittal and coronal reconstructions were performed from source images. FINDINGS: LUNG BASES:No suspicious airspace consolidation or pleural effusion. LIVER:No suspicious focal hepatic lesion. BILIARY:Previous cholecystectomy. PANCREAS:No suspicious pancreatic abnormality. SPLEEN:The spleen is not significantly enlarged. No focal splenic lesion identified. ADRENALS:The adrenal glands are unremarkable. URINARY TRACT:No urinary calculi or hydronephrosis. AORTA/VASCULAR:No aneurysmal dilatation. RETROPERITONEUM:No suspicious retroperitoneal lymphadenopathy. BOWEL/MESENTERY:No evidence for small bowel obstruction. Moderate fecal burden, particularly within the proximal colon and rectum. The appendix is not definitively identified. There are no secondary signs to suggest acute appendicitis. No free air. ABDOMINAL WALL:No significant hernia. PELVIC ORGANS:Urinary bladder is mildly distended, but appears otherwise grossly unremarkable. The uterus is not enlarged for the patient's age. Adnexal regions appear within acceptable limits. No significant free fluid. BONES:Degenerative changes of the symphysis pubis. Additional degenerative disc and spine disease within the lower lumbar spine, particularly at the lumbosacral junction. No acute abnormality. CONCLUSION: 1. No acute intra-abdominal abnormality. Moderate fecal burden within the proximal colon and rectum. Nonvisualization of the appendix without secondary signs to suggest acute appendicitis. 2. Additional findings as discussed above. Dictated by: Joselito Fonseca M.D. On 06/24/2019 at 01:16 PM
[2019-06-24 13:32] LABS: CALCIUM 8.8 mg/dL (8.4-10.5); CARBON DIOXIDE 24.6 mmol/L (20.0-32)
[2019-06-24 13:35] LABS: APPEARANCE,URINE CLEAR (CLEAR); UA COLOR YELLOW (YELLOW)
[2019-06-24] MEDS ORDERED: MOTRIN ONE (13:36)
[2019-06-24] MEDS ORDERED: MOTRIN PO STA (13:36)
--- NOTE | 2019-06-24 14:00 | NUR ---
DR. TREVA TILLEY ON THE PHONE WITH DR. MESSINA FOR ADMISSION OF PT.
[2019-06-24] MEDS ORDERED: NS 1000ML 1,000 ML IV STA (14:05)
[2019-06-24] MEDS ORDERED: PHENERGAN IV STA (14:05)
--- NOTE | 2019-06-24 14:20 | NUR ---
TRANSFER PT TRANSFERRED TO MED SURG VIA W/C WITH BELONGINGS. NS BOLUS TO IV INFUSING. ALERT, ORIENTED. REPORT GIVEN TO YOSSI VALENZUELA.
[2019-06-24 14:21] VITALS: BP 124/68
--- NOTE | 2019-06-24 14:30 | NUR ---
ARRIVAL Pt ARRIVED TOT EH UNIT IN ROOM 333 FROM ER REPORT RECEIVED FROM ER NURSE DANIEL VALENZUELA. ORIENTED Pt TO ROOM CALL BUTCHER, BATHROOM, REENFORCED TO USE CALL BUTCHER Pt VERBALIZED UNDERSTANDING. FLUIDS OFFERED. PER REPORT Pt SUPPOSE TO TAEK 2ND BOTTLE OF PO CONTRAST AT 3 PM, INFORMED Pt, Pt VERBALIZED UNDERSTANDING.
[2019-06-24 15:00] VITALS: BP 108/69
--- NOTE | 2019-06-24 16:33 | NUR ---
UNABLE TO RECONSILE MEDS.
--- NOTE | 2019-06-24 17:26 | NUR ---
STATUS Pt BACK TO ROOM FROM CT SCAN.
--- NOTE | 2019-06-24 17:41 | DIREP ---
PROCEDURE:CT ABDOMEN/PELVIS W/ CONTRAST COMPARISON:[facility], CT, CT ABD/PELVIS W/O, 06/24/2019, 01:02 PM. Same day [facility], CT, CT ABD/PELVIS W/ CONTRAST, 05/26/2019, 04:51 PM. INDICATIONS:Lower abdominal pain TECHNIQUE:Axial images were created through the abdomen and pelvis with non-ionic intravenous contrast material. Oral contrast was administered. Sagittal and coronal reconstructions were performed from source images. FINDINGS: LUNG BASES:Normal. No visible pulmonary or pleural disease. LIVER:Normal. No significant liver lesions are identified. BILIARY:The gallbladder is surgically absent. There is no biliary ductal dilatation. PANCREAS:Normal. No lesion, fluid collection, ductal dilatation, or atrophy. SPLEEN:Normal. No enlargement or focal lesion. ADRENALS:Normal. No mass or enlargement. URINARY TRACT:Normal. No focal lesions or hydronephrosis. AORTA/VASCULAR:Normal. No aneurysm. RETROPERITONEUM:Normal. No mass or adenopathy. BOWEL/MESENTERY:Normal. There is no intestinal obstruction, free fluid, free air or mesenteric inflammatory changes. Decrease stool burden when compared with previous examination from the same day ABDOMINAL WALL:Normal. No mass or hernia. PELVIC ORGANS:Normal. No visible mass. Pelvic organs appropriate for patient age. BONES:There are degenerative changes of the spine greatest at lumbosacral junction. OTHER:Negative. CONCLUSION:No acute findings are delineated with the addition of intravenous contrast. Fecal burden within the rectosigmoid is decreasing when compared with previous examination obtained same day. Dictated by: David Barboza MD on 06/24/2019 at 05:36 PM
[2019-06-24] MEDS ORDERED: OXY-IR ONE (17:43)
--- NOTE | 2019-06-24 17:43 | NUR ---
status Pt C/O OF PAIN "BACK AND ABD AT 8/10 ACHING" C/O OF ANXIETY STATES " I AM GONNA HAVE PANIC ATTACK " PT CRIED, NOTIFIED DR GRIJALVA VIA TELEPHONE RECEIVED ORDER FOR ONE TIME OXYCODONE 10 MG AND CLONAZEPAM 1 MG ADMINISTERED MEDS WITH ZOFRAN 4 MG IV PT REQUESTED FOR IT STATES WILL GET NAUSEATED BY PILLS Pt IS NPO. WILL REASSESS THE Pt AGAIN.
[2019-06-24] MEDS: ZOFRAN 4 MG/2 ML VIAL IV PRN (17:57)
[2019-06-24] MEDS ORDERED: OXYCODONE HCL PO ONE (18:00)
[2019-06-24] MEDS ORDERED: KLONOPIN PO ONE (18:00)
[2019-06-24] MEDS: LACTATED RINGERS 1,000 ML IV SCH (18:22)
[2019-06-24] MEDS ORDERED: NS 100ML 100 ML IV ONE (18:23)
[2019-06-24] MEDS: MEROPENEM 500 MG in NS 100ML 100 ML IV SCH (18:26)
[2019-06-24] MEDS ORDERED: NS 1000ML 1,000 ML IV ONE (18:30)
--- NOTE | 2019-06-24 18:32 | PCM.HP ---
History of Present Illness Reason for Visit: Abdominal pain History of Present Illness Patient is a 43 F PMH of Chronic Back Pain (on Opiates), Anxiety, Gastroparesis, Asthma/COPD who presents with abdominal pain. Patient did not have BM for 3 days. Patient seen in ER and CT ordered showing large fecal burden. ER reported patient taking enemas but she denies. Patient had tachycardia and Leukocytosis so repeat CT requested with PO contrast. Contrast lead to BM once patient arrived on floor. Patient medications reconciled and diet ordered. Patient pain improved following BM. Patient labs, imaging reviewed. No reported appendicitis on CT. Patient did have elevated heart rate and elevated WBC. IV abx and IVF ordered. Blood cx ordered. I discussed plan of care with patient and she verbalized understanding/agreement. Past Medical History Pulmonary: Asthma, COPD GI: Other (Gastroparesis) Psychiatric: Anxiety Musculoskeletal: Chronic Low Back Pain Hx Last Menstrual Period: Pt IS HAVING MENSTURATION Past Surgical History: Cholecystectomy, Other (Back Surgery x 2, Laparotomy x 4, Left Ankle) Past Social History Smoke: <1 pack per day Alcohol: rare Drugs: Marijuana Lives: with Family Travel Hx EBOLA RISK:Travel to/contact w: No Is pt experiencing any Ebola s: No Review of Systems Constitutional: No: Fever, Chills Eyes: No: Conjunctivae inflammation, Eyelid inflammation ENT: No: Nose discharge, Nose congestion Respiratory: No: Cough, Shortness of breath, SOB with excertion, Wheezing Cardiovascular: No: Chest Pain, Palpitations, Edema Gastrointestinal: Nausea, Abdominal Pain, Constipation; No: Vomiting Genitourinary: No Incontinence; Hematuria; No Retention Musculoskeletal: back pain; No: neck pain Skin: No: Rash, Lesions, Jaundice, Bruising Neurological: No: Weakness, Numbness, Incoordination, Change in speech, Confusion, Seizures Allergies: Coded Allergies: morphine (Verified Allergy, Severe, Shortness of Breath, 03/04/19) Penicillins (Verified Allergy, Unknown, Hives, 05/05/17) amoxicillin (Verified Allergy, Unknown, Anaphylaxis Shock, 03/17/18) ketorolac (Verified Allergy, Unknown, Swelling, 05/05/17) naproxen (Verified Allergy, Unknown, 05/05/17) pamabrom (Verified Allergy, Unknown, 05/05/17) sulfamethoxazole (Verified Allergy, Unknown, Hives, 05/05/17) tramadol (Verified Allergy, Unknown, Hives, 05/05/17) trimethoprim (Verified Allergy, Unknown, Hives, 05/05/17) Scheduled Albuterol Sulfate (Proventil Hfa), 2 PUFF IH Q4HR, (Reported) Clonazepam (Clonazepam), 1 TAB PO TID, (Reported) Omeprazole (Omeprazole), 40 MG PO BID, (Reported) [Magnesium Oxide], 400 MG PO BID Scheduled PRN Ondansetron (Ondansetron Odt), 4 MG PO Q4 PRN for Nausea, (Reported) Oxycodone Hcl/Acetaminophen (Percocet 10-325 Mg Tablet), 1 TAB PO BID PRN for PAIN, (Reported) Tizanidine Hcl (Zanaflex), 1 TAB PO TID PRN for BACK PAIN, (Reported) VTE VTE Risk Total Score: 1 VTE Risk Score VTE Risk: Score 0-1 = Low Risk (Aggressive mobilization; early ambulation; no VTE prophylaxis required) Score 2: Moderate Risk (Intermittent/Pneumatic Compression Device OR Lovenox/Heparin/Coumadin) Score 3-4: High Risk (Intermittent/Pneumatic Compression Device AND Lovenox/Heparin/Coumadin) Score > or =5: Highest Risk (Intermittent/Pneumatic Compression Device AND Lovenox/Heparin/Coumadin) VTE VTE Present on Admission: No Currently receiving anticoagul: No VTE Risk Total Score: 1 Exam Vital Signs Vital Signs Date Time Temp Pulse Resp B/P (MAP) Pulse Ox O2 Delivery O2 Flow Rate FiO2 06/24/19 15:00 98.1 62 18 108/69 (82) 95 Room Air General Appearance: Alert, Oriented X3, Cooperative HEENT: Atraumatic, PERRLA, EOMI, Mucous membr. moist/pink Respiratory: Clear to auscultation, Normal air movement Cardiovascular: Regular rate, Normal S1, Normal S2, No murmurs Abdominal: Normal bowel sounds, Soft, No tenderness Extremities: No edema, Normal pulses, No tenderness/swelling Skin: No rash, No breakdown, No lesions Neuro: Normal speech, Strength at 5/5 X4 ext, Normal tone, Sensation intact, Cranial nerves 3-12 NL Psych/Mental Status: Mental status NL, Mood NL Assessment/Plan Assessment/Plan Assessment/Plan Patient is a 43 F PMH of Chronic Back Pain (on Opiates), Anxiety, Gastroparesis, Asthma/COPD who presents with abdominal pain. Patient History: Alzheimer's disease (GRANDFATHER) Asthma (MOTHER) Cerebrovascular disorder (MOTHER, GRANDFATHER) Chronic obstructive pulmonary disease (MOTHER, GRANDFATHER) Hypertension (MOTHER, YPUNG BROTHER ABND ELDER BROTHER) Unknown (AUNT COLON CANCER) Plan 1. Constipation/Fecal [place]: BM following administration of PO contrast. Cont Miralax PRN. 2. Leukocytosis/Tachycardia: no source of infection. CT abdomen negative for appendicitis. Patient s/p Cholecystectomy. Blood cx ordered, cont IVF and broad spectrum IV abx. No urinary source. No pulmonary symptoms. No fever. SIRS criteria. CXR in AM. 3. Chronic Back Pain: cont Oxycontin that patient takes @ home. 4. Anxiety: cont BZD home medications. 5. Asthma/COPD: 6. PPx: PPI, Lovenox SIENNA MESSINA MD Jun 24, 2019 18:32
[2019-06-24 19:50] VITALS: BP 110/73
[2019-06-24] MEDS ORDERED: NICOTINE 21MG PATCH TD ONE (21:26)
[2019-06-24] MEDS ORDERED: LOVENOX SQ ONE (21:27)
[2019-06-24] MEDS ORDERED: PROTONIX PO ONE (21:27)
[2019-06-24] MEDS ORDERED: BENADRYL PO ONE (21:27)
[2019-06-24] MEDS: PROTONIX PO SCH (21:31)
[2019-06-24] MEDS: NICOTINE 21MG PATCH TD SCH (21:31)
[2019-06-24] MEDS: BENADRYL PO SCH (21:31)
[2019-06-24] MEDS: LOVENOX SQ SCH (21:32)
[2019-06-24] MEDS: DUO 0.5-3(2.5) MG/3 ML IH PRN (21:56)
[2019-06-25] MEDS: MIRALAX PO PRN ×2 (00:15→22:01)
[2019-06-25] MEDS: ZOFRAN 4 MG/2 ML VIAL IV PRN ×4 (00:15→23:23)
[2019-06-25 00:50] VITALS: BP 116/68
[2019-06-25] MEDS ORDERED: NS 100ML 100 ML IV ONE (03:38)
[2019-06-25] MEDS: MEROPENEM 500 MG in NS 100ML 100 ML IV SCH ×3 (03:44→18:52)
[2019-06-25] MEDS: LACTATED RINGERS 1,000 ML IV SCH ×3 (04:00→23:23)
[2019-06-25] MEDS: ZANAFLEX PO PRN ×2 (04:37→19:16)
[2019-06-25] MEDS: KLONOPIN PO PRN ×3 (04:41→19:18)
[2019-06-25 04:51] VITALS: BP 120/70
[2019-06-25 05:06] LABS: BASOPHIL # 0.1 10^3/uL (0.0-0.1); BASOPHIL % 0.6 % (0.0-0.2); EOSINOPHIL # 0.5 10^3/uL (0.0-0.2); EOSINOPHIL % 6.4 % (0.0-5.0); LYMPHOCYTES % 46.7 % (24.0-44.0); MEAN CORP HGB 29.8 pg (26-34); MONOCYTES # 0.6 10^3/uL (0.3-0.8); NEUTROPHIL # 3.3 10^3/uL (1.8-7.7); NEUTROPHILS % 39.2 % (41.0-85.0); RED CELL DISTRIBUTION WIDTH 14.3 % (11.5-14.5)
[2019-06-25 05:24] LABS: CALCIUM 8.1 mg/dL (8.4-10.5); CARBON DIOXIDE 24.9 mmol/L (20.0-32)
--- NOTE | 2019-06-25 07:57 | DIREP ---
PROCEDURE:CHEST 1 VIEW COMPARISON:[facility], CR, XRAY CHEST 2 VWS, 12/11/2018, 02:49 PM. INDICATIONS:Leukocytosis FINDINGS: LUNGS/PLEURA:No significant pulmonary parenchymal abnormalities. No effusions. VASCULATURE:Normal. Unremarkable pulmonary vasculature. CARDIAC:Normal. No cardiac silhouette abnormality or cardiomegaly. MEDIASTINUM:Normal. No visible mass or adenopathy. BONES:No acute abnormality. OTHER:Negative. CONCLUSION:No acute cardiopulmonary abnormality. Dictated by: Joselito Fonseca M.D. on 06/25/2019 at 07:54 AM
[2019-06-25] MEDS: NICOTINE 21MG PATCH TD SCH ×2 (09:00→19:02)
[2019-06-25] MEDS ORDERED: PROTONIX PO SCH (09:00)
[2019-06-25] MEDS: DUO 0.5-3(2.5) MG/3 ML IH PRN (09:13)
[2019-06-25 09:15] VITALS: BP 121/78
[2019-06-25] MEDS ORDERED: SENOKOT PO STA (09:22)
--- NOTE | 2019-06-25 09:34 | PRM.PN ---
Subjective Subjective Date: Jun 25, 2019 Time: 09:20 Subjective Patient still having abdominal pain and feels constipated. Patient had large BM yesterday and two more overnight. Patient not eating breakfast. Patient History: Alzheimer's disease (GRANDFATHER) Asthma (MOTHER) Cerebrovascular disorder (MOTHER, GRANDFATHER) Chronic obstructive pulmonary disease (MOTHER, GRANDFATHER) Hypertension (MOTHER, YPUNG BROTHER ABND ELDER BROTHER) Unknown (AUNT COLON CANCER) VTE VTE Risk Total Score: 1 VTE Risk Score VTE Risk: Score 0-1 = Low Risk (Aggressive mobilization; early ambulation; no VTE prophylaxis required) Score 2: Moderate Risk (Intermittent/Pneumatic Compression Device OR Lovenox/Heparin/Coumadin) Score 3-4: High Risk (Intermittent/Pneumatic Compression Device AND Lovenox/Heparin/Coumadin) Score > or =5: Highest Risk (Intermittent/Pneumatic Compression Device AND Lovenox/Heparin/Coumadin) Review of Systems Allergies: Coded Allergies: morphine (Verified Allergy, Severe, Shortness of Breath, 03/04/19) Penicillins (Verified Allergy, Unknown, Hives, 05/05/17) amoxicillin (Verified Allergy, Unknown, Anaphylaxis Shock, 03/17/18) ketorolac (Verified Allergy, Unknown, Swelling, 05/05/17) naproxen (Verified Allergy, Unknown, 05/05/17) pamabrom (Verified Allergy, Unknown, 05/05/17) sulfamethoxazole (Verified Allergy, Unknown, Hives, 05/05/17) tramadol (Verified Allergy, Unknown, Hives, 05/05/17) trimethoprim (Verified Allergy, Unknown, Hives, 05/05/17) Scheduled Albuterol Sulfate (Proventil Hfa), 2 PUFF IH Q4HR, (Reported) Clonazepam (Clonazepam), 1 TAB PO TID, (Reported) Omeprazole (Omeprazole), 40 MG PO BID, (Reported) [Magnesium Oxide], 400 MG PO BID Scheduled PRN Ondansetron (Ondansetron Odt), 4 MG PO Q4 PRN for Nausea, (Reported) Oxycodone Hcl/Acetaminophen (Percocet 10-325 Mg Tablet), 1 TAB PO BID PRN for PAIN, (Reported) Tizanidine Hcl (Zanaflex), 1 TAB PO TID PRN for BACK PAIN, (Reported) Objective Vitals and I/O Vital Sign - Last 24 Hours 06/24/19 06/24/19 06/24/19 06/24/19 12:28 12:35 12:35 14:21 Temp 97.9 97.9 97.9 98.2 Pulse 103 103 103 98 Resp 18 18 18 18 B/P (MAP) 94/56 (69) 124/68 (86) Pulse Ox 99 99 99 06/24/19 06/24/19 06/24/19 06/24/19 15:00 15:00 19:50 21:57 Temp 98.1 97.9 Pulse 62 69 Resp 18 18 16 B/P (MAP) 108/69 (82) 110/73 (85) Pulse Ox 95 98 98 O2 Delivery Room Air Room Air Room Air 06/24/19 06/24/19 06/25/19 06/25/19 21:59 22:01 00:50 04:14 Temp 98.0 Pulse 79 84 78 Resp 16 16 18 B/P (MAP) 116/68 (84) Pulse Ox 97 99 96 O2 Delivery Room Air Room Air 06/25/19 06/25/19 06/25/19 04:51 09:14 09:20 Temp 98.1 Pulse 80 80 88 Resp 18 18 18 B/P (MAP) 120/70 (87) Pulse Ox 96 96 99 O2 Delivery Room Air Intake and Output 06/24/19 06/24/19 06/25/19 15:00 23:00 07:00 Intake Total 100 ml Output Total 700 ml Balance -600 ml General: Alert, Oriented X3, Cooperative HEENT: Atraumatic, PERRLA, EOMI, Mucous membr. moist/pink Neck: Supple, No JVD Lungs: Clear to auscultation, Normal air movement Heart: Regular rate, Normal S1, Normal S2, No murmurs Abdomen: Normal bowel sounds, Soft, No tenderness Extremities: No edema, Normal pulses, No tenderness/swelling Skin: No rashes, No breakdown, No significant lesion Neuro: Normal speech, Strength at 5/5 X4 ext, Normal tone, Sensation intact, Cranial nerves 3-12 NL Psych/Mental Status: Mental status NL, Mood NL All Results(Lab/Rad) Laboratory Tests Test 06/24/19 12:10 06/24/19 12:44 06/24/19 14:19 06/25/19 04:31 White Blood Count 17.0 10^3/uL 8.5 10^3/uL Red Blood Count 4.82 10^6/uL 4.33 10^6/uL Hemoglobin 14.3 g/dL 12.9 g/dL Hematocrit 43.4 % 39.8 % Mean Corpuscular Volume 90.0 fL 91.9 fL Mean Corpuscular Hemoglobin 29.7 pg 29.8 pg Mean Corpuscular Hemoglobin Concent 32.9 g/dL 32.4 g/dL Red Cell Distribution Width 14.4 % 14.3 % Platelet Count 371 10^3/uL 324 10^3/uL Mean Platelet Volume 10.0 fL 10.8 fL Neutrophils (%) (Auto) 81.4 % 39.2 % Lymphocytes (%) (Auto) 10.7 % 46.7 % Monocytes (%) (Auto) 6.5 % 7.0 % Neutrophils # (Auto) 13.8 10^3/uL 3.3 10^3/uL Lymphocytes # (Auto) 1.8 10^3/uL 4.0 10^3/uL Monocytes # (Auto) 1.1 10^3/uL 0.6 10^3/uL Absolute Immature Granulocyte (auto 0.05 10^3 u/L 0.01 10^3 u/L Immature Granulocytes % 0.30 % 0.10 % Eosinophils % 0.9 % 6.4 % Basophils % 0.2 % 0.6 % Basophils # 0.0 10^3/uL 0.1 10^3/uL Eosinophil Count 0.2 10^3/uL 0.5 10^3/uL Sodium Level 142 mmol/L 144 mmol/L Potassium Level 3.9 mmol/L 3.9 mmol/L Chloride Level 109.0 mmol/L 110.0 mmol/L Carbon Dioxide Level 24.6 mmol/L 24.9 mmol/L Anion Gap 12.3 13.0 Blood Urea Nitrogen 10 mg/dL 7 mg/dL Creatinine 0.90 mg/dL 0.79 mg/dL Estimated GFR () 83.1 96.6 BUN/Creatinine Ratio 11.0 8.0 Glucose Level 98 mg/dL 86 mg/dL Calcium Level 8.8 mg/dL 8.1 mg/dL Total Bilirubin 0.3 mg/dL 0.4 mg/dL Aspartate Amino Transf (AST/SGOT) 13 U/L 13 U/L Alanine Aminotransferase (ALT/SGPT) 12 U/L 12 U/L Alkaline Phosphatase 61 U/L 55 U/L Total Protein 7.1 g/dL 6.5 g/dL Albumin 3.4 g/dL 3.2 g/dL Globulin 3.7 3.3 Lipase 81 U/L Urine Collection Type CCMS Urine Color YELLOW Urine Appearance CLEAR Urine Bilirubin NEGATIVE MG/DL Urine Ketones NEGATIVE Urine Specific [place] 1.005 Urine pH 5 Urine Protein NEGATIVE Urine Urobilinogen NORMAL Urine Nitrate NEGATIVE Urine Leukocyte Esterase NEGATIVE Urine Blood 250 4+ Urine RBC 10-25 RBC/HPF Urine WBC 0-2 WBC/HPF Urine Squamous Epithelial Cells FEW #/HPF Urine Bacteria NONE SEEN Urine Glucose NORMAL Urine HCG, Qualitative NEGATIVE Urine Opiates, Qualitative NEGATIVE ng/mL Urine Methadone, Qualitative NEGATIVE ng/mL Urine Amphetamine Qualitative NEGATIVE ng/mL Urine Barbiturates, Qualitative NEGATIVE ng/mL Urine Phencyclidine Screen NEGATIVE ng/mL Urine MDMA (Ecstasy), Qualitative NEGATIVE ng/mL Urine Benzodiazepines Screen NEGATIVE ng/mL Urine Cocaine Qualitative NEGATIVE ng/mL Ur Tetrahydrocannabinol (THC) Scrn POSITIVE ng/mL Lactic Acid Level 0.8 mmol/L Current Medications Medications (Trade) Dose Ordered Sig/Bo Route PRN Reason Start Time Stop Time Status Last Admin Dose Admin Ibuprofen (Motrin) 800 mg STAT STAT PO 06/24/19 13:36 06/24/19 13:38 DC 06/24/19 13:40 Ibuprofen (Motrin) 800 mg STK-MED ONCE .ROUTE 06/24/19 13:36 06/24/19 13:39 DC Sodium Chloride 1,000 ml @ 1,000 mls/hr Q1H STAT IV 06/24/19 14:05 06/24/19 15:04 DC 06/24/19 14:14 Promethazine HCl (Phenergan) 25 mg STAT STAT IV 06/24/19 14:05 06/24/19 14:56 DC 06/24/19 14:14 Clonazepam (Klonopin) 1 mg STAT ONCE PO 06/24/19 18:00 06/24/19 21:28 DC 06/24/19 17:47 Oxycodone HCl (Oxycodone HCl) 10 mg STAT ONCE PO 06/24/19 18:00 06/24/19 21:28 DC 06/24/19 17:47 Oxycodone HCl (Oxy-Ir) 5 mg STK-MED ONCE .ROUTE 06/24/19 17:43 06/24/19 17:45 DC Ondansetron HCl (Zofran 4 Mg/2 ml Vial) 4 mg Q4H PRN IV NAUSEA / VOMITING 06/24/19 18:00 07/24/19 17:59 06/25/19 00:15 Pantoprazole Sodium (Protonix) 40 mg DAILY PO 06/25/19 09:00 06/24/19 18:05 DC Polyethylene Glycol (Miralax) 17 gm DAILY PRN PO CONSTIPATION 06/24/19 18:00 07/24/19 17:59 06/25/19 00:15 Oxycodone HCl (OxyContin) 10 mg TID PRN PO PAIN 7 - 10 06/24/19 18:30 07/24/19 18:29 06/25/19 00:18 Meropenem 500 mg/ Sodium Chloride 100 ml @ 200 mls/hr Q8H IV 06/24/19 18:30 07/24/19 18:29 06/25/19 03:44 Clonazepam (Klonopin) 1 mg TID PRN PO ANXIETY 06/24/19 18:30 07/24/19 18:29 06/25/19 04:41 Pantoprazole Sodium (Protonix) 40 mg BID PO 06/24/19 21:00 07/25/19 08:59 06/24/19 21:31 Tizanidine HCl (Zanaflex) 4 mg TID PRN PO MUSCLE SPASM 06/24/19 18:30 07/24/19 18:29 06/25/19 04:37 Sodium Chloride 1,000 ml @ 0 mls/hr Q0M ONCE IV 06/24/19 18:30 06/24/19 21:28 DC 06/24/19 18:26 Diphenhydramine HCl (Benadryl) 25 mg BEDTIME PO 06/24/19 18:30 07/24/19 18:29 06/24/19 21:31 Sodium Chloride 100 ml @ ud STK-MED ONCE IV 06/24/19 18:23 06/24/19 18:24 DC Albuterol/ Ipratropium (Duo 0.5-3(2.5) Mg/3 ml) 3 ml RTQ4 PRN IH WHEEZING 06/24/19 19:00 07/24/19 18:59 06/25/19 09:13 Enoxaparin Sodium (Lovenox) 40 mg Q24HRS SQ 06/24/19 19:00 07/24/19 18:59 06/24/19 21:32 Nicotine (Nicotine 21mg Patch) 1 each DAILY TD 06/24/19 21:00 07/24/19 20:59 06/24/19 21:31 Nicotine (Nicotine 21mg Patch) 1 each STK-MED ONCE TD 06/24/19 21:26 06/24/19 21:28 DC Enoxaparin Sodium (Lovenox) 40 mg STK-MED ONCE SQ 06/24/19 21:27 06/24/19 21:29 DC Pantoprazole Sodium (Protonix) 40 mg STK-MED ONCE PO 06/24/19 21:27 06/24/19 21:29 DC Diphenhydramine HCl (Benadryl) 25 mg STK-MED ONCE PO 06/24/19 21:27 06/24/19 21:29 DC Sodium Chloride 100 ml @ ud STK-MED ONCE IV 06/25/19 03:38 06/25/19 03:40 DC Senna (Senokot) 8.6 mg STAT STAT PO 06/25/19 09:22 06/25/19 09:23 UNV Course Sepsis Screening Results: Posi: NEGATIVE Sepsis Qualifier/Stage: NO DEFINITE RISK Duration or Total Time Spent w: 45 mins Vitals & review Data Vital Sign - Last 24 Hours 06/24/19 06/24/19 06/24/19 12:28 12:35 12:35 Temp 97.9 97.9 97.9 Pulse 103 103 103 Resp 18 18 18 B/P (MAP) 94/56 (69) Pulse Ox 99 99 Laboratory Tests Test 06/24/19 12:10 06/24/19 12:44 White Blood Count 17.0 10^3/uL Red Blood Count 4.82 10^6/uL Hemoglobin 14.3 g/dL Hematocrit 43.4 % Mean Corpuscular Volume 90.0 fL Mean Corpuscular Hemoglobin 29.7 pg Mean Corpuscular Hemoglobin Concent 32.9 g/dL Red Cell Distribution Width 14.4 % Platelet Count 371 10^3/uL Mean Platelet Volume 10.0 fL Neutrophils (%) (Auto) 81.4 % Lymphocytes (%) (Auto) 10.7 % Monocytes (%) (Auto) 6.5 % Neutrophils # (Auto) 13.8 10^3/uL Lymphocytes # (Auto) 1.8 10^3/uL Monocytes # (Auto) 1.1 10^3/uL Absolute Immature Granulocyte (auto 0.05 10^3 u/L Immature Granulocytes % 0.30 % Eosinophils % 0.9 % Basophils % 0.2 % Basophils # 0.0 10^3/uL Eosinophil Count 0.2 10^3/uL Sodium Level 142 mmol/L Potassium Level 3.9 mmol/L Chloride Level 109.0 mmol/L Carbon Dioxide Level 24.6 mmol/L Anion Gap 12.3 Blood Urea Nitrogen 10 mg/dL Creatinine 0.90 mg/dL Estimated GFR () 83.1 BUN/Creatinine Ratio 11.0 Glucose Level 98 mg/dL Calcium Level 8.8 mg/dL Total Bilirubin 0.3 mg/dL Aspartate Amino Transf (AST/SGOT) 13 U/L Alanine Aminotransferase (ALT/SGPT) 12 U/L Alkaline Phosphatase 61 U/L Total Protein 7.1 g/dL Albumin 3.4 g/dL Globulin 3.7 Lipase 81 U/L Urine Collection Type CCMS Urine Color YELLOW Urine Appearance CLEAR Urine Bilirubin NEGATIVE MG/DL Urine Ketones NEGATIVE Urine Specific [place] 1.005 Urine pH 5 Urine Protein NEGATIVE Urine Urobilinogen NORMAL Urine Nitrate NEGATIVE Urine Leukocyte Esterase NEGATIVE Urine Blood 250 4+ Urine RBC 10-25 RBC/HPF Urine WBC 0-2 WBC/HPF Urine Squamous Epithelial Cells FEW #/HPF Urine Bacteria NONE SEEN Urine Glucose NORMAL Urine HCG, Qualitative NEGATIVE Urine Opiates, Qualitative NEGATIVE ng/mL Urine Methadone, Qualitative NEGATIVE ng/mL Urine Amphetamine Qualitative NEGATIVE ng/mL Urine Barbiturates, Qualitative NEGATIVE ng/mL Urine Phencyclidine Screen NEGATIVE ng/mL Urine MDMA (Ecstasy), Qualitative NEGATIVE ng/mL Urine Benzodiazepines Screen NEGATIVE ng/mL Urine Cocaine Qualitative NEGATIVE ng/mL Ur Tetrahydrocannabinol (THC) Scrn POSITIVE ng/mL Sepsis Infection Criteria Pres: Documented Infection LEVEL 1 SEPSIS INFECTION [place]: ABX Therapy, Abdominal Pain LEVEL 2-SIRS (LIST ALL THAT AP: WBC>[id number] O2 Sat by Pulse Oximetry: 99 Assessment/Plan Assessment/Plan Assessment/Plan 1. Constipation/Fecal [place]: patient s/p BM. Cont bowel regimen until patient abdominal pain resolves. 2. Leukocytosis/Tachycardia: resolved, CXR negative. No UTI. Symptoms likely 2/2 constipation. Cont abx. 3. Chronic Back Pain: cont Oxycontin that patient takes @ home. 4. Anxiety: cont BZD home medications. 5. Asthma/COPD: nebs ordered PRN. O2 support as needed. 6. PPx: PPI, Lovenox SIENNA MESSINA MD Jun 25, 2019 09:33
[2019-06-25] MEDS: PROTONIX PO SCH ×2 (09:53→19:16)
--- NOTE | 2019-06-25 11:13 | NUR ---
DISCHARGE PLAN CM VISITED WITH PATIENT REGARDING D/C PLAN AND GOALS. PATIENT LIVES AT HOME WITH HER SPOUSE AND BROTHER. SHE IS FAIRLY INDEPENDENT OF ADLS. SHE WOULD NOT SPECIFY WHAT HER HELPS HER WITH. SHE DOES HAVE A WALKER AND NEBULIZER IN PLACE. HER PCP IS DR FERNÁNDEZ. SHE IS FINANCIALLY ABLE TO PAY FOR HER MEDICATIONS. CM PROVIDED PATIENT WITH A RESOURCE LIST FOR [facility]. SHE STATED THAT HER INS WILL NOT PAY FOR OUT PATIENT SERVICES. DISCHARGE GOAL IS FOR PT TO D/C HOME WITH HER SPOUSE AND CONTINUE ROUTINE CARE THERE.
[2019-06-25 17:45] VITALS: BP 132/87
[2019-06-25] MEDS: LOVENOX SQ SCH (18:52)
[2019-06-25] MEDS: BENADRYL PO SCH (19:16)
--- NOTE | 2019-06-25 19:28 | NUR ---
pt c/o nausea gave zofran
[2019-06-25 20:13] VITALS: BP 117/68
[2019-06-25 23:52] VITALS: BP 107/72
[2019-06-26] MEDS: DUO 0.5-3(2.5) MG/3 ML IH PRN ×2 (00:03→08:32)
[2019-06-26] MEDS: KLONOPIN PO PRN ×2 (02:30→10:26)
[2019-06-26] MEDS: ZANAFLEX PO PRN ×2 (02:31→10:26)
[2019-06-26] MEDS: MEROPENEM 500 MG in NS 100ML 100 ML IV SCH ×2 (02:31→10:30)
--- NOTE | 2019-06-26 03:41 | NUR ---
DR. MESSINA NOTIFIED PT ITCHING 1 TIME ORDER BENADRYL 25MG ORDERED.
--- NOTE | 2019-06-26 03:45 | NUR ---
BENADRYL 25MG PO GIVEN
[2019-06-26] MEDS ORDERED: BENADRYL PO ONE (04:00)
[2019-06-26 04:04] VITALS: BP 93/59
[2019-06-26 05:13] LABS: BASOPHIL # 0.1 10^3/uL (0.0-0.1); BASOPHIL % 0.8 % (0.0-0.2); EOSINOPHIL # 0.6 10^3/uL (0.0-0.2); EOSINOPHIL % 9.5 % (0.0-5.0); LYMPHOCYTES # 3.1 10^3/uL (1.0-4.8); LYMPHOCYTES % 50.7 % (24.0-44.0); MEAN CORP HGB 30.2 pg (26-34); MONOCYTES # 0.5 10^3/uL (0.3-0.8); MONOCYTES % 7.7 % (5.0-12.0); NEUTROPHIL # 1.9 10^3/uL (1.8-7.7); NEUTROPHILS % 31.1 % (41.0-85.0); RED CELL DISTRIBUTION WIDTH 14.2 % (11.5-14.5)
[2019-06-26 05:34] LABS: CALCIUM 8.8 mg/dL (8.4-10.5); CARBON DIOXIDE 26.3 mmol/L (20.0-32)
[2019-06-26 09:04] VITALS: BP 104/62
--- NOTE | 2019-06-26 09:04 | NUR ---
Pt upset and voicing she is ready to be discharge home now. ''I can take my meds at home like I want to and I'm about to have an anxiety attack''. Explained to pt that I would let the charge nurse know about her frustration and to contact the doctor. Offered AMA papers but denied at this time.
[2019-06-26] MEDS: PROTONIX PO SCH (09:07)
--- NOTE | 2019-06-26 10:26 | NUR ---
IV discontinued by Marcy GERMINATION TESTING MANAGER and PRN medications given by Marcy GERMINATION TESTING MANAGER. Pt has settled down and will wait for discharge order and instruction.
[2019-06-26] MEDS: NICOTINE 21MG PATCH TD SCH (10:37)
[2019-06-26] MEDS ORDERED: KLOR-CON 10 PO STA (11:06)
[2019-06-26] MEDS ORDERED: SENN8.6T98 PO (11:11)
--- NOTE | 2019-06-26 11:14 | NUR ---
Potassium 40meq given po per orders.
[2019-06-26 11:15] VITALS: BP 104/62
--- NOTE | 2019-06-26 11:18 | PRM.DC ---
Discharge Summary Date of Discharge: Jun 26, 2019 Time of Request to Discharge: 11:00 Reason for Visit: Abdominal pain Hospital Course Patient admitted with abdominal pain and leukocytosis. CT in ER showed substantial fecal burden. Patient is on chronic Opiates for pain. Patient be cause of Leukocytosis, pain, and poor visualization of appendix on CT in ER had repeat with PO contrast. Patient had large BM after PO contrast given. No acute pathology on CT except fecal burden. Patient continued on bowel regimen with improvement in symptoms and has had multiple BM. Patient received IV abx in hospita and IVF. Blood cx negative. Leukocytosis resolved with resolution of constipation. Patient will be d/c home on Senna for constipation. She will f/u with PCP within 1-2 weeks. Patient History: Alzheimer's disease (GRANDFATHER) Asthma (MOTHER) Cerebrovascular disorder (MOTHER, GRANDFATHER) Chronic obstructive pulmonary disease (MOTHER, GRANDFATHER) Hypertension (MOTHER, YPUNG BROTHER ABND ELDER BROTHER) Unknown ([facility]) General: Alert, Oriented X3, Cooperative, No acute distress HEENT: Atraumatic, PERRLA, EOMI, Mucous membr. moist/pink Neck: Supple, No JVD Lungs: Clear to auscultation, Normal air movement Heart: Normal S1, Normal S2, No murmurs Abdomen: Normal bowel sounds, Soft, No tenderness Extremities: No edema, Normal pulses, No tenderness/swelling Skin: No rashes, No breakdown, No significant lesion Neuro: Normal speech, Strength at 5/5 X4 ext, Normal tone, Sensation intact, Cranial nerves 3-12 NL Psych/Mental Status: Mental status NL, Mood NL Scheduled Albuterol Sulfate (Proventil Hfa), 2 PUFF IH Q4HR, (Reported) Clonazepam (Clonazepam), 1 TAB PO TID, (Reported) Omeprazole (Omeprazole), 40 MG PO BID, (Reported) Sennosides (Senokot), 8.6 MG PO HS [Magnesium Oxide], 400 MG PO BID Scheduled PRN Ondansetron (Ondansetron Odt), 4 MG PO Q4 PRN for Nausea, (Reported) Oxycodone Hcl/Acetaminophen (Percocet 10-325 Mg Tablet), 1 TAB PO BID PRN for PAIN, (Reported) Tizanidine Hcl (Zanaflex), 1 TAB PO TID PRN for BACK PAIN, (Reported) Sepsis Evaluation @ Discharge Vital Sign - Last 24 Hours 06/24/19 06/24/19 06/24/19 12:28 12:35 12:35 Temp 97.9 97.9 97.9 Pulse 103 103 103 Resp 18 18 18 B/P (MAP) 94/56 (69) Pulse Ox 99 99 Laboratory Tests Test 06/24/19 12:10 06/24/19 12:44 White Blood Count 17.0 10^3/uL Red Blood Count 4.82 10^6/uL Hemoglobin 14.3 g/dL Hematocrit 43.4 % Mean Corpuscular Volume 90.0 fL Mean Corpuscular Hemoglobin 29.7 pg Mean Corpuscular Hemoglobin Concent 32.9 g/dL Red Cell Distribution Width 14.4 % Platelet Count 371 10^3/uL Mean Platelet Volume 10.0 fL Neutrophils (%) (Auto) 81.4 % Lymphocytes (%) (Auto) 10.7 % Monocytes (%) (Auto) 6.5 % Neutrophils # (Auto) 13.8 10^3/uL Lymphocytes # (Auto) 1.8 10^3/uL Monocytes # (Auto) 1.1 10^3/uL Absolute Immature Granulocyte (auto 0.05 10^3 u/L Immature Granulocytes % 0.30 % Eosinophils % 0.9 % Basophils % 0.2 % Basophils # 0.0 10^3/uL Eosinophil Count 0.2 10^3/uL Sodium Level 142 mmol/L Potassium Level 3.9 mmol/L Chloride Level 109.0 mmol/L Carbon Dioxide Level 24.6 mmol/L Anion Gap 12.3 Blood Urea Nitrogen 10 mg/dL Creatinine 0.90 mg/dL Estimated GFR () 83.1 BUN/Creatinine Ratio 11.0 Glucose Level 98 mg/dL Calcium Level 8.8 mg/dL Total Bilirubin 0.3 mg/dL Aspartate Amino Transf (AST/SGOT) 13 U/L Alanine Aminotransferase (ALT/SGPT) 12 U/L Alkaline Phosphatase 61 U/L Total Protein 7.1 g/dL Albumin 3.4 g/dL Globulin 3.7 Lipase 81 U/L Urine Collection Type CCMS Urine Color YELLOW Urine Appearance CLEAR Urine Bilirubin NEGATIVE MG/DL Urine Ketones NEGATIVE Urine Specific [place] 1.005 Urine pH 5 Urine Protein NEGATIVE Urine Urobilinogen NORMAL Urine Nitrate NEGATIVE Urine Leukocyte Esterase NEGATIVE Urine Blood 250 4+ Urine RBC 10-25 RBC/HPF Urine WBC 0-2 WBC/HPF Urine Squamous Epithelial Cells FEW #/HPF Urine Bacteria NONE SEEN Urine Glucose NORMAL Urine HCG, Qualitative NEGATIVE Urine Opiates, Qualitative NEGATIVE ng/mL Urine Methadone, Qualitative NEGATIVE ng/mL Urine Amphetamine Qualitative NEGATIVE ng/mL Urine Barbiturates, Qualitative NEGATIVE ng/mL Urine Phencyclidine Screen NEGATIVE ng/mL Urine MDMA (Ecstasy), Qualitative NEGATIVE ng/mL Urine Benzodiazepines Screen NEGATIVE ng/mL Urine Cocaine Qualitative NEGATIVE ng/mL Ur Tetrahydrocannabinol (THC) Scrn POSITIVE ng/mL Course Sepsis Screening Results: Posi: NEGATIVE Sepsis Qualifier/Stage: NO DEFINITE RISK Duration or Total Time Spent w: 45 mins Vitals & review Data Vital Sign - Last 24 Hours 06/24/19 06/24/19 06/24/19 12:28 12:35 12:35 Temp 97.9 97.9 97.9 Pulse 103 103 103 Resp 18 18 18 B/P (MAP) 94/56 (69) Pulse Ox 99 99 Laboratory Tests Test 06/24/19 12:10 06/24/19 12:44 White Blood Count 17.0 10^3/uL Red Blood Count 4.82 10^6/uL Hemoglobin 14.3 g/dL Hematocrit 43.4 % Mean Corpuscular Volume 90.0 fL Mean Corpuscular Hemoglobin 29.7 pg Mean Corpuscular Hemoglobin Concent 32.9 g/dL Red Cell Distribution Width 14.4 % Platelet Count 371 10^3/uL Mean Platelet Volume 10.0 fL Neutrophils (%) (Auto) 81.4 % Lymphocytes (%) (Auto) 10.7 % Monocytes (%) (Auto) 6.5 % Neutrophils # (Auto) 13.8 10^3/uL Lymphocytes # (Auto) 1.8 10^3/uL Monocytes # (Auto) 1.1 10^3/uL Absolute Immature Granulocyte (auto 0.05 10^3 u/L Immature Granulocytes % 0.30 % Eosinophils % 0.9 % Basophils % 0.2 % Basophils # 0.0 10^3/uL Eosinophil Count 0.2 10^3/uL Sodium Level 142 mmol/L Potassium Level 3.9 mmol/L Chloride Level 109.0 mmol/L Carbon Dioxide Level 24.6 mmol/L Anion Gap 12.3 Blood Urea Nitrogen 10 mg/dL Creatinine 0.90 mg/dL Estimated GFR () 83.1 BUN/Creatinine Ratio 11.0 Glucose Level 98 mg/dL Calcium Level 8.8 mg/dL Total Bilirubin 0.3 mg/dL Aspartate Amino Transf (AST/SGOT) 13 U/L Alanine Aminotransferase (ALT/SGPT) 12 U/L Alkaline Phosphatase 61 U/L Total Protein 7.1 g/dL Albumin 3.4 g/dL Globulin 3.7 Lipase 81 U/L Urine Collection Type CCMS Urine Color YELLOW Urine Appearance CLEAR Urine Bilirubin NEGATIVE MG/DL Urine Ketones NEGATIVE Urine Specific [place] 1.005 Urine pH 5 Urine Protein NEGATIVE Urine Urobilinogen NORMAL Urine Nitrate NEGATIVE Urine Leukocyte Esterase NEGATIVE Urine Blood 250 4+ Urine RBC 10-25 RBC/HPF Urine WBC 0-2 WBC/HPF Urine Squamous Epithelial Cells FEW #/HPF Urine Bacteria NONE SEEN Urine Glucose NORMAL Urine HCG, Qualitative NEGATIVE Urine Opiates, Qualitative NEGATIVE ng/mL Urine Methadone, Qualitative NEGATIVE ng/mL Urine Amphetamine Qualitative NEGATIVE ng/mL Urine Barbiturates, Qualitative NEGATIVE ng/mL Urine Phencyclidine Screen NEGATIVE ng/mL Urine MDMA (Ecstasy), Qualitative NEGATIVE ng/mL Urine Benzodiazepines Screen NEGATIVE ng/mL Urine Cocaine Qualitative NEGATIVE ng/mL Ur Tetrahydrocannabinol (THC) Scrn POSITIVE ng/mL Sepsis Infection Criteria Pres: Documented Infection LEVEL 1 SEPSIS INFECTION CRITE: ABX Therapy, Abdominal Pain LEVEL 2-SIRS (LIST ALL THAT AP: WBC>20692 O2 Sat by Pulse Oximetry: 96 Plan Discharge Date: Jun 26, 2019 Dicharge DX: Constipation, Leukocytosis Discharge Disposition: Stable Plan ok to d/c to home self care medications: per med rec list Diet: soft/bland Activity: as tolerated F/u with PCP within 1-2 weeks Return to care for worsening/concerning symptoms SIENNA MESSINA MD Jun 26, 2019 11:18
--- NOTE | 2019-06-26 11:20 | NUR ---
Dr. Paul Miller in pt room speaking with pt about plan of care for pt to be discharge home. Pt voiced understanding.
--- NOTE | 2019-06-26 11:45 | NUR ---
Discharge Pt given discharge instructions verbally with written instructions. Pt voiced and signed understanding. Pt taken down by wheelchair to private car with significant other driving her.
[2019-06-26] MEDS ORDERED: SENOKOT PO SCH (21:00)
== END 2019-06-26 11:50 | disposition home or self-care (01) | DRG 254 ==
LOC: ER 12:05 → MS 14:07
PROVIDERS: ADMIT Family Medicine; ATTEND Family Medicine
DX: K59.00 Constipation, unspecified (principal); D72.829 Elevated white blood cell count, unspecified; G89.29 Other chronic pain; F41.9 Anxiety disorder, unspecified; J44.9 Chronic obstructive pulmonary disease, unspecified; M54.5 Low back pain; F17.210 Nicotine dependence, cigarettes, uncomplicated; Z88.0 Allergy status to penicillin; Z88.2 Allergy status to sulfonamides; Z88.1 Allergy status to other antibiotic agents; Z88.8 Allergy status to other drugs, medicaments and biological substances; Z88.5 Allergy status to narcotic agent; Z90.49 Acquired absence of other specified parts of digestive tract; Z79.891 Long term (current) use of opiate analgesic; Z80.0 Family history of malignant neoplasm of digestive organs; Z82.0 Family history of epilepsy and other diseases of the nervous system; Z82.5 Family history of asthma and other chronic lower respiratory diseases
CPT/HCPCS: 36415; 71045; 74176; 74177; 80053; 80307; 80349; 81000; 81025; 83605; 83690; 85025; 87040; 94640; 99285; G0378; J1650; J2405; J2550; J3490; J7030; J7050; J7120; J7620; Q0163; Q9965

== ENCOUNTER 2019-07-29 16:53 | Emergency (ER) | payer OTHER ==
[~2019-07-29] VITALS: Ht 172.7 cm; Wt 86.2 kg
[~2019-07-29 16:53] MED LIST changes: +SENN8.6T98 PO
[2019-07-29 17:19] VITALS: BP 151/98
[2019-07-29] MEDS ORDERED: NS 1000ML 1,000 ML ONE (17:42)
[2019-07-29] MEDS ORDERED: PHENERGAN ONE (17:43)
[2019-07-29] MEDS ORDERED: NS 100ML 100 ML IV ONE (17:43)
[2019-07-29] MEDS ORDERED: SOLU-MEDROL ONE (17:43)
[2019-07-29] MEDS: SOLU-MEDROL IV STA (17:45)
[2019-07-29] MEDS: PHENERGAN IV STA (17:45)
[2019-07-29] MEDS: NS 1000ML 1,000 ML IV STA (17:45)
--- NOTE | 2019-07-29 17:47 | ER.PDOC ---
General Chief Complaint: Abdomen Pain Stated Complaint: ABD PAIN Time seen by MD: 17:41 Source: patient Exam Limitations: no limitations History of Present Illness Initial Comments Abdominal pain and nausea for 3 days. No vomiting or diarrhea. She takes Oxycodone at home. Severity/Quality: moderate Radiation: no radiation Associated Symptoms: nausea/vomiting Exacerbated by: nothing Relieved By: nothing Allergies: Coded Allergies: morphine (Verified Allergy, Severe, Shortness of Breath, 03/04/19) Penicillins (Verified Allergy, Unknown, Hives, 05/05/17) amoxicillin (Verified Allergy, Unknown, Anaphylaxis Shock, 03/17/18) ketorolac (Verified Allergy, Unknown, Swelling, 05/05/17) naproxen (Verified Allergy, Unknown, 05/05/17) pamabrom (Verified Allergy, Unknown, 05/05/17) sulfamethoxazole (Verified Allergy, Unknown, Hives, 05/05/17) tramadol (Verified Allergy, Unknown, Hives, 05/05/17) trimethoprim (Verified Allergy, Unknown, Hives, 05/05/17) Home Meds Active Scripts Sennosides (SENOKOT) 8.6 Mg Tablet, 8.6 MG PO HS for 30 Days, #30 TAB 0 Refills Prov:SIENNA MESSINA MD 06/26/19 [Magnesium Oxide] 400 MG TABLET No Conflict Check, 400 MG PO BID for 7 Days, #14 TAB 0 Refills Prov:SIENNA MESSINA MD 05/11/19 Reported Medications Albuterol Sulfate (PROVENTIL HFA) 6.7 Gm Hfa.aer.ad, 2 PUFF IH Q4HR, #1 INHALER 05/09/19 Tizanidine Hcl (ZANAFLEX) 4 Mg Tablet, 1 TAB PO TID PRN for BACK PAIN for 30 Days, #90 TAB 0 Refills 05/09/19 Ondansetron (ONDANSETRON ODT) 4 Mg Tab.rapdis, 4 MG PO Q4 PRN for Nausea, TAB 05/09/19 Clonazepam (CLONAZEPAM) 1 Mg Tablet, 1 TAB PO TID for anxiety, #90 TAB 05/09/19 Omeprazole (OMEPRAZOLE) 40 Mg Capsule.dr, 40 MG PO BID for 30 Days, #30 TAB 05/09/19 Oxycodone Hcl/Acetaminophen (PERCOCET 10-325 MG TABLET) 1 Each Tablet, 1 TAB PO BID PRN for PAIN MDD 4 Tablet(s) for 5 Days, #20 TAB 0 Refills 05/09/19 Vital Signs First Vital Signs Date Time Temp Pulse Resp B/P (MAP) Pulse Ox O2 Delivery O2 Flow Rate FiO2 07/29/19 17:03 98.1 80 20 97 07/29/19 17:19 151/98 (115) Room Air Last Vital Signs Date Time Temp Pulse Resp B/P (MAP) Pulse Ox O2 Delivery O2 Flow Rate FiO2 07/29/19 19:00 98.1 71 16 115/81 (92) 98 Room Air Past Medical History Medical History: other Surgical History: back, tubal Social History Alcohol Use: none Drug Use: marijuana Constitutional: no symptoms reported Respiratory: no symptoms reported Cardiovascular: no symptoms reported Gastrointestinal: see HPI Genitourinary: no symptoms reported All Other Systems: Reviewed and Negative Physical Exam General Appearance: No Apparent Distress, WD/WN Neck: Non-Tender, Full Range of Motion, Supple, Normal Inspection Respiratory: chest non-tender, lungs clear, normal breath sounds, no respiratory distress, no accessory muscle use Cardiovascular: Normal Peripheral Pulses, Regular Rate, Rhythm, No Edema, No Gallop, No JVD, No Murmur Gastrointestinal: Normal Bowel Sounds, No Organomegaly, No Pulsatile Mass, Guarding, Tenderness (Lower abdomen) Back: Normal Inspection, No CVA Tenderness, No Vertebral Tenderness Extremities: Normal Range of Motion, Non-Tender, Normal Inspection, No Pedal Edema, No Calf Tenderness, Normal Capillary Refill, Pelvis Stable 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 (07/29/19 17:37) Urinalysis (07/29/19 17:37) Hcg Urine (07/29/19 17:37) 0.9 % Sodium Chloride (Ns 1000ml) (07/29/19 17:37) Methylprednisolone Sod Succ (Solu-Medrol (07/29/19 17:37) Promethazine Hcl (Phenergan) (07/29/19 17:37) 0.9 % Sodium Chloride (Ns 1000ml) (07/29/19 17:42) Methylprednisolone Sod Succ (Solu-Medrol (07/29/19 17:43) Promethazine Hcl (Phenergan) (07/29/19 17:43) 0.9 % Sodium Chloride (Ns 100ml) (07/29/19 17:43) Vital Signs Date Time Temp Pulse Resp B/P (MAP) Pulse Ox O2 Delivery O2 Flow Rate FiO2 07/29/19 19:00 98.1 71 16 115/81 (92) 98 Room Air 07/29/19 17:19 98.1 80 16 151/98 (115) 97 Room Air 07/29/19 17:03 98.1 80 20 97 Administered Medications Medications (Trade) Dose Ordered Sig/Bo Route PRN Reason Start Time Stop Time Status Last Admin Dose Admin Methylprednisolone Sodium Succinate (Solu-Medrol) 125 mg STAT STAT IV 07/29/19 17:37 07/29/19 17:42 DC 07/29/19 17:45 125 MG Promethazine HCl (Phenergan) 25 mg STAT STAT IV 07/29/19 17:37 07/29/19 17:42 DC 07/29/19 17:45 25 MG Sodium Chloride 1,000 ml @ 1,200 mls/hr Q50M STAT IV 07/29/19 17:37 07/29/19 18:26 DC 07/29/19 17:45 1,200 MLS/HR Laboratory Tests Test 07/29/19 17:20 White Blood Count 8.5 10^3/uL (4.5-11.0) Red Blood Count 4.68 10^6/uL (4.00-5.20) Hemoglobin 14.1 g/dL (12.0-15.0) # Hematocrit 41.8 % (36.0-46.0) Mean Corpuscular Volume 89.3 fL (78-100) Mean Corpuscular Hemoglobin 30.1 pg (26-34) Mean Corpuscular Hemoglobin Concent 33.7 g/dL (33-37) Red Cell Distribution Width 14.2 % (11.5-14.5) Platelet Count 333 10^3/uL (150-400) Mean Platelet Volume 10.5 fL (7.8-11.0) Neutrophils (%) (Auto) 48.3 % (41.0-85.0) Lymphocytes (%) (Auto) 41.5 % (24.0-44.0) Monocytes (%) (Auto) 6.1 % (5.0-12.0) Neutrophils # (Auto) 4.1 10^3/uL (1.8-7.7) Lymphocytes # (Auto) 3.5 10^3/uL (1.0-4.8) Monocytes # (Auto) 0.5 10^3/uL (0.3-0.8) Absolute Immature Granulocyte (auto 0.01 10^3 u/L (0-2) Absolute Eosinophils (auto) 0.3 10^3/uL (0.0-0.2) H Immature Granulocytes % 0.10 % (0.00-0.50) Eosinophils % 3.5 % (0.0-5.0) Basophils % 0.5 % (0.0-0.2) H Basophils # 0.0 10^3/uL (0.0-0.1) Prothrombin Time 10.3 SEC (9.4-11.5) Prothrombin Time INR (Non-Therap) 1.0 Activated Partial Thromboplast Time 24.4 SEC (24.67-30.72) Urine Collection Type VOID Urine Color YELLOW (YELLOW) Urine Appearance SLIGHTLY HAZY (CLEAR) H Urine Bilirubin NEGATIVE MG/DL (NEGATIVE) Urine Ketones 15 mg/dL (NEGATIVE) H Urine Specific [place] 1.025 (1.005-1.035) Urine pH 5 (5.0-6.0) Urine Protein NEGATIVE (NEGATIVE) Urine Urobilinogen NORMAL (NEGATIVE) Urine Nitrate NEGATIVE (NEGATIVE) Urine Leukocyte Esterase NEGATIVE (NEGATIVE) Urine Blood 250 4+ (NEGATIVE) H Urine RBC 2-5 RBC/HPF (NONE SEEN) Urine WBC 0-2 WBC/HPF (0-2) Urine Squamous Epithelial Cells FEW #/HPF (FEW) Urine Bacteria FEW (NONE SEEN) H Urine Glucose NORMAL (NEGATIVE) Urine HCG, Qualitative NEGATIVE (NEGATIVE) Sodium Level 142 mmol/L (132-145) Potassium Level 3.4 mmol/L (3.6-5.2) L Chloride Level 107.0 mmol/L (96-109) Carbon Dioxide Level 24.1 mmol/L (20.0-32) Anion Gap 14.3 Blood Urea Nitrogen 18 mg/dL (7-18) Creatinine 0.76 mg/dL (0.59-1.40) Estimated GFR () 101.0 (>/=60) Est GFR (CKD-EPI)(Non-Afr Iranian) 83.5 (>/=60) BUN/Creatinine Ratio 23.0 Glucose Level 104 mg/dL (70-110) Calcium Level 8.3 mg/dL (8.4-10.5) L Total Bilirubin 0.2 mg/dL (0.2-1.0) Aspartate Amino Transferase (AST) 11 U/L (0-35) Alanine Aminotransferase (ALT) 18 U/L (12-78) Alkaline Phosphatase 52 U/L (50-136) Total Protein 6.8 g/dL (6.4-8.2) Albumin 3.7 g/dL (3.4-5.0) Globulin 3.1 Lipase 113 U/L (114-286) L Progress Progress CT abdomen/pelvis: :Appendix not definitely identified, but no CT evidence of appendicitis. Discussed results with patient and he is okay to go home. She understands that she will follow up with her PCP tomorrow. Labs are normal. Course Sepsis Screening Results: Posi: NEGATIVE Sepsis Qualifier/Stage: NO DEFINITE RISK Duration or Total Time Spent w: 45 mins Vitals & review Data Vital Sign - Last 24 Hours 07/29/19 07/29/19 07/29/19 17:03 17:19 19:00 Temp 98.1 98.1 98.1 Pulse 80 80 71 Resp 20 16 16 B/P (MAP) 151/98 (115) 115/81 (92) Pulse Ox 97 97 98 O2 Delivery Room Air Room Air Laboratory Tests Test 07/29/19 17:20 White Blood Count 8.5 10^3/uL Red Blood Count 4.68 10^6/uL Hemoglobin 14.1 g/dL Hematocrit 41.8 % Mean Corpuscular Volume 89.3 fL Mean Corpuscular Hemoglobin 30.1 pg Mean Corpuscular Hemoglobin Concent 33.7 g/dL Red Cell Distribution Width 14.2 % Platelet Count 333 10^3/uL Mean Platelet Volume 10.5 fL Neutrophils (%) (Auto) 48.3 % Lymphocytes (%) (Auto) 41.5 % Monocytes (%) (Auto) 6.1 % Neutrophils # (Auto) 4.1 10^3/uL Lymphocytes # (Auto) 3.5 10^3/uL Monocytes # (Auto) 0.5 10^3/uL Absolute Immature Granulocyte (auto 0.01 10^3 u/L Absolute Eosinophils (auto) 0.3 10^3/uL Immature Granulocytes % 0.10 % Eosinophils % 3.5 % Basophils % 0.5 % Basophils # 0.0 10^3/uL Prothrombin Time 10.3 SEC Prothrombin Time INR (Non-Therap) 1.0 Activated Partial Thromboplast Time 24.4 SEC Urine Collection Type VOID Urine Color YELLOW Urine Appearance SLIGHTLY HAZY Urine Bilirubin NEGATIVE MG/DL Urine Ketones 15 mg/dL Urine Specific [place] 1.025 Urine pH 5 Urine Protein NEGATIVE Urine Urobilinogen NORMAL Urine Nitrate NEGATIVE Urine Leukocyte Esterase NEGATIVE Urine Blood 250 4+ Urine RBC 2-5 RBC/HPF Urine WBC 0-2 WBC/HPF Urine Squamous Epithelial Cells FEW #/HPF Urine Bacteria FEW Urine Glucose NORMAL Urine HCG, Qualitative NEGATIVE Sodium Level 142 mmol/L Potassium Level 3.4 mmol/L Chloride Level 107.0 mmol/L Carbon Dioxide Level 24.1 mmol/L Anion Gap 14.3 Blood Urea Nitrogen 18 mg/dL Creatinine 0.76 mg/dL Estimated GFR () 101.0 Est GFR (CKD-EPI)(Non-Afr Iranian) 83.5 BUN/Creatinine Ratio 23.0 Glucose Level 104 mg/dL Calcium Level 8.3 mg/dL Total Bilirubin 0.2 mg/dL Aspartate Amino Transf (AST/SGOT) 11 U/L Alanine Aminotransferase (ALT/SGPT) 18 U/L Alkaline Phosphatase 52 U/L Total Protein 6.8 g/dL Albumin 3.7 g/dL Globulin 3.1 Lipase 113 U/L Sepsis Infection Criteria Pres: Documented Infection LEVEL 1 SEPSIS INFECTION CRITE: ABX Therapy, Abdominal Pain LEVEL 2-SIRS (LIST ALL THAT AP: WBC>[id number] O2 Sat by Pulse Oximetry: 97 Departure Time of Disposition: 20:43 Disposition: 01 HOME, SELF-CARE Impression: Primary Impression: Nonspecific abdominal pain Condition: Stable Referrals: KEE FERNÁNDEZ MD (PCP) PRIMARY CARE PROVIDER Additional Instructions: Continue pain medication and Compazine at home F/U with your PCP tomorrow Return to ED if worsening symptoms or concerns. Duration or Time Spent with Pa: 60 mins TREVA BONILLA MD Jul 29, 2019 17:47
[2019-07-29 17:54] LABS: BASOPHIL % 0.5 % (0.0-0.2); BILIRUBIN,URINE NEGATIVE (NEGATIVE); EOSINOPHIL # 0.3 10^3/uL (0.0-0.2); EOSINOPHIL % 3.5 % (0.0-5.0); LYMPHOCYTES # 3.5 10^3/uL (1.0-4.8); LYMPHOCYTES % 41.5 % (24.0-44.0); MEAN CORP HGB 30.1 pg (26-34); MONOCYTES # 0.5 10^3/uL (0.3-0.8); MONOCYTES % 6.1 % (5.0-12.0); NEUTROPHIL # 4.1 10^3/uL (1.8-7.7); NEUTROPHILS % 48.3 % (41.0-85.0); RED CELL DISTRIBUTION WIDTH 14.2 % (11.5-14.5); UROBILINOGEN,URINE NORMAL (NEGATIVE)
[2019-07-29 18:06] LABS: APPEARANCE,URINE SLIGHTLY HAZY (CLEAR); UA COLOR YELLOW (YELLOW)
[2019-07-29 18:07] LABS: CALCIUM 8.3 mg/dL (8.4-10.5); CARBON DIOXIDE 24.1 mmol/L (20.0-32)
[2019-07-29 19:00] VITALS: BP 115/81
--- NOTE | 2019-07-29 19:59 | DIREP ---
PROCEDURE:CT ABD/PELVIS W/ CONTRAST TECHNIQUE:Following the intravenous administration of contrast material, venous phase cuts were obtained through the abdomen and pelvis. The images were viewed at lung and soft tissue settings. Sagittal and coronal reconstructions are provided. COMPARISON:[facility], CT, CT ABD/PELVIS W/O, 06/24/2019, 01:02 PM. [facility], CT, CT ABD/PELVIS W/ CONTRAST, 06/24/2019, 04:33 PM. INDICATIONS:RLQ abdominal pain FINDINGS: LOWER CHEST:The lung bases are clear. LIVER:There is a small patch of low density in the anterior aspect of the medial segment of the left hepatic lobe adjacent to the falciform ligament, a typical location and appearance for focal fatty infiltration. BILIARY:The gallbladder has been resected. PANCREAS:Normal. SPLEEN:Normal. URINARY TRACT:No urinary tract calculi are demonstrated. There is no hydronephrosis. ADRENALS:Normal. AORTA/VASCULAR:Normal. RETROPERITONEUM:Normal. BOWEL/MESENTERY:The vermiform appendix is not definitely visualized, but there is no pericecal inflammation or fluid collection to suggest appendicitis. No bowel dilatation is identified. ABDOMINAL WALL:Normal. PELVIS:Normal. BONES:Normal. OTHER:L5-S1 degenerative disc disease. CONCLUSION:Appendix not definitely identified, but no CT evidence of appendicitis. Dictated by: Michoacano Wise III, MD on 07/29/2019 at 07:50 PM
[2019-07-29 20:00] VITALS: BP 122/88
[2019-07-29 20:53] VITALS: BP 128/88
--- NOTE | 2019-07-29 20:55 | NUR ---
IV DC'D TIP INTACT, NO BLEEDING
== END 2019-07-29 21:00 | disposition home or self-care (01) ==
LOC: ER 16:53
DX: R10.30 Lower abdominal pain, unspecified (principal); R11.2 Nausea with vomiting, unspecified; F12.10 Cannabis abuse, uncomplicated; Z79.899 Other long term (current) drug therapy; Z88.0 Allergy status to penicillin; Z88.1 Allergy status to other antibiotic agents; Z88.2 Allergy status to sulfonamides; Z88.5 Allergy status to narcotic agent; Z88.6 Allergy status to analgesic agent; Z88.8 Allergy status to other drugs, medicaments and biological substances
CPT/HCPCS: 36415; 74177; 80053; 81000; 81025; 83690; 85025; 85610; 85730; 96361; 96374; 96375; 99285; J2550; J2930; J7030; J7050; Q9965

== ENCOUNTER → 2019-08-26 | Outpatient (CLI) | payer OTHER | END | disposition home or self-care (01) | LOC: NPLAB 17:22 | PROVIDERS: ATTEND Nurse Practitioner | DX: N39.0 Urinary tract infection, site not specified (principal) | CPT/HCPCS: 87086 ==

== ENCOUNTER 2019-09-23 09:45 | Day surgery (SDC) | payer OTHER ==
[2019-09-18 10:56] VITALS: BP 118/70
[2019-09-18 12:44] LABS: BASOPHIL % 0.6 % (0.0-0.2); EOSINOPHIL # 0.4 10^3/uL (0.0-0.2); EOSINOPHIL % 6.5 % (0.0-5.0); LYMPHOCYTES # 2.63 10^3/uL1 (1.0-4.8); LYMPHOCYTES % 41.5 % (24.0-44.0); MEAN CORP HGB 29.3 pg (26-34); MONOCYTES # 0.5 10^3/uL (0.3-0.8); MONOCYTES % 7.3 % (5.0-12.0); NEUTROPHIL # 2.8 10^3/uL (1.8-7.7); NEUTROPHILS % 43.9 % (41.0-85.0); RED CELL DISTRIBUTION WIDTH 13.3 % (11.5-14.5)
[2019-09-18 13:04] LABS: CALCIUM 8.9 mg/dL (8.4-10.5); CARBON DIOXIDE 27.1 mmol/L (20.0-32)
[~2019-09-23] VITALS: Ht 170.2 cm; Wt 83.5 kg
[~2019-09-23 09:45] MED LIST changes: +DIPH25TA64 PO; +DIPRIVAN IV ONE; +DUO 0.5-3(2.5) MG/3 ML IH ONE; +LACTATED RINGERS 1,000 ML IV SCH; +LACTATED RINGERS 1,000 ML ONE; +LIDOCAINE 2% VIAL ONE; +LUBI8CAP4 PO; +MOVIPREP POWDER PACKET PO STA; +VERSED ONE; +WATER ONE; +[UNRECOGNIZED DRUG - CODE] PO
[2019-09-23 09:46] VITALS: BP 129/70
[2019-09-23] MEDS ORDERED: VERSED ONE (10:17)
[2019-09-23] MEDS ORDERED: VERSED IV ONE (10:35)
[2019-09-23 12:20] VITALS: BP 84/45
[2019-09-23 12:25] VITALS: BP 85/42
[2019-09-23 12:30] VITALS: BP 102/58
[2019-09-23] MEDS ORDERED: ZOFRAN IV PRN (12:30)
[2019-09-23] MEDS ORDERED: DILAUDID IV PRN (12:30)
[2019-09-23] MEDS ORDERED: SUBLIMAZE IV PRN (12:30)
--- NOTE | 2019-09-23 12:35 | PRM.OPH ---
OPERATIVE REPORT OPERATIVE REPORT DATE OF SURGERY: September 23, 2019 PREOPERATIVE DIAGNOSIS: History of gastroparesis, reflux, need for screening POSTOPERATIVE DIAGNOSES: 1) gastritis 2) redundant but normal-appearing colon with moderate prep quality SURGEON: Mallory Feliciano DO RECORD PRODUCER: OR staff ANESTHESIA: Total intravenous anesthesia by Malachi Nobles CRNA PROCEDURES PERFORMED: 1) esophagogastroduodenoscopy with biopsy 2) long flexible colonoscopy to cecum. SPECIMENS: Gastric mucosa the path ESTIMATED BLOOD LOSS: 3 mL. COUNTS: At the completion of the case, the counts were correct per OR staff. DESCRIPTION OF PROCEDURE: Mrs. Jones is a 43-year-old female known from previous evaluation. Prior procedure informed sent was obtained. At the time procedure she is taken the operative suite placed spine position. After timeout she is placed in the left lateral recumbent position. Excellent sedation esophagogastroduodenoscope was advanced transorally with pneumo insufflation d istally in the second portion of the duodenum. Once the duodenum is adequately visualized Camera is slowly withdrawn to facilitate visualization of the duodenal bulb and the pylorus. Distal stomach shows minimal gastritis and biopsies are obtained. Retroflex maneuver shows cardia and fundus within normal limits. Camera is reduced, stomach is decompressed, scope is slowly withdrawn. Distal mid and proximal esophagus as well as vocal cords are within normal limits. Camera was removed procedure discontinued . Patient remains in the OR. Timeout was previously completed. With adequate sedation a rectal exam was performed there are no masses. Next colonoscope was advanced transanally with some redundancies and pneumo insufflation proximally to the level of the cecum. Quality the prep was moderate there is some liquid stool throughout the colon. Once the cecum was adequately irrigated and visualized the camera slowly withdrawn to facilitate visualization of the ascending colon hepatic flexure transverse colon splenic flexure the descending and sigmoid appear to have the greatest areas of redundancy. However the visualized portion of colon and rectum show no obvious masses polyps or AVMs. Camera is slowly withdrawn through the remainder the sigmoid and the rectum to the level of 5 cm where is retroflexed and reinserted,l anal verge is visualized. Is within normal limits. Camera is reduced colon is decompressed colonoscope was removed. Patient tolerated the procedure well there are no acute complications noted. MALLORY FELICIANO DO Sep 23, 2019 12:35
[2019-09-23 12:40] VITALS: BP 116/72
== END 2019-09-23 13:03 | disposition home or self-care (01) ==
LOC: SDC 09:45
PROVIDERS: ATTEND Surgery
DX: K59.00 Constipation, unspecified (principal); K29.30 Chronic superficial gastritis without bleeding; K21.9 Gastro-esophageal reflux disease without esophagitis; K31.84 Gastroparesis; J44.9 Chronic obstructive pulmonary disease, unspecified; J45.909 Unspecified asthma, uncomplicated; Z72.0 Tobacco use; Z79.899 Other long term (current) drug therapy; Z88.0 Allergy status to penicillin; Z88.8 Allergy status to other drugs, medicaments and biological substances; Z82.5 Family history of asthma and other chronic lower respiratory diseases; Z82.49 Family history of ischemic heart disease and other diseases of the circulatory system
CPT/HCPCS: 36415; 43239; 45378; 80053; 84703; 85025; 85610; 85730; 88305; 88313; 88342; 94640; J2001; J2250 ×2; J3490; J7120; J7620

== ENCOUNTER 2019-11-10 17:13 | Emergency (ER) | payer OTHER ==
[~2019-11-10] VITALS: Ht 170.2 cm; Wt 83.0 kg
[~2019-11-10 17:13] MED LIST changes: -DIPRIVAN IV ONE; -DUO 0.5-3(2.5) MG/3 ML IH ONE; -LACTATED RINGERS 1,000 ML IV SCH; -LACTATED RINGERS 1,000 ML ONE; -LIDOCAINE 2% VIAL ONE; -MOVIPREP POWDER PACKET PO STA; -VERSED ONE; -WATER ONE
[2019-11-10 17:26] VITALS: BP 107/46
[2019-11-10] MEDS ORDERED: ATIVAN PO STA (17:26)
[2019-11-10] MEDS ORDERED: FLEXERIL PO STA (17:26)
[2019-11-10 17:31] VITALS: BP 107/46
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
[2019-11-10] MEDS ORDERED: FLEXERIL ONE (17:33)
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
[2019-11-10] MEDS ORDERED: ATIVAN ONE (17:34)
--- NOTE | 2019-11-10 17:34 | NUR ---
NIKO BADILLO SPOKE WITH NIKO BADILLO, PATIENT DID FILE A REPORT.
--- NOTE | 2019-11-10 17:40 | NUR ---
CAT SCAN AND XRAY PATIENT AMBULATORY TO CAT SCAN AND XRAY WITH MARICRUZ FROM RADIOLOGY.
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
--- NOTE | 2019-11-10 18:00 | NUR ---
CAT SCAN PATIENT BACK FROM CAT SCAN AND XRAY
[2019-11-10 18:05] VITALS: BP 118/61
== END 2019-11-10 18:07 | disposition home or self-care (01) ==
LOC: ER 17:13
DX: S06.0X1A Concussion with loss of consciousness of 30 minutes or less, initial encounter (principal); S16.1XXA Strain of muscle, fascia and tendon at neck level, initial encounter; S20.212A Contusion of left front wall of thorax, initial encounter; F12.10 Cannabis abuse, uncomplicated; Z79.51 Long term (current) use of inhaled steroids; Z79.899 Other long term (current) drug therapy; Z88.0 Allergy status to penicillin; Z88.1 Allergy status to other antibiotic agents; Z88.2 Allergy status to sulfonamides; Z88.5 Allergy status to narcotic agent; Z88.6 Allergy status to analgesic agent; Z88.8 Allergy status to other drugs, medicaments and biological substances; Z91.041 Radiographic dye allergy status; Y04.0XXA Assault by unarmed brawl or fight, initial encounter; Y93.89 Activity, other specified; Y92.098 Other place in other non-institutional residence as the place of occurrence of the external cause; Y99.8 Other external cause status
CPT/HCPCS: 70450; 99284; 71101-LT